=== PATIENT | female | born 1950 | race Caucasian/White ===

== ENCOUNTER → 2016-12-27 | Day surgery (SDC) | payer OTHER, BC ==
[2016-12-11 14:53] LABS: BASO % 0.7 %; BASO ABS # 0.03 K/uL (0-0.2); COMPLETE YES; EOS % 1.5 %; HEMATOCRIT 38.2 % (37-47); IG% 0.2 %; LYMPH % 18.4 %; LYMPH ABS # 0.85 K/uL (1.2-3.4); MEAN CELL VOLUME 90.7 fL (80-100); MEAN CORPUSCULAR HEMOGLOBIN 31.8 pg (25-34); MEAN CORPUSCULAR HGB CONC 35.1 g/dl (32-36); MONO % 4.8 %; NEUT % 74.4 %; PLATELET COUNT 236 K/uL (130-400); RED BLOOD COUNT 4.21 M/uL (4.2-5.4); WHITE BLOOD COUNT 4.61 K/uL (4.8-10.8)
[2016-12-11 15:18] LABS: BLOOD UREA NITROGEN 18 mg/dl (7-18); BUN/CREATININE RATIO 20.9 (10-20); CALCIUM 9.2 mg/dl (8.5-10.1); CARBON DIOXIDE 28 mmol/L (21-32); CHLORIDE 105 mmol/L (98-107); CREATININE 0.86 mg/dl (0.60-1.20); GLUCOSE 100 mg/dl (70-99); POTASSIUM 4.1 mmol/L (3.5-5.1); SODIUM 142 mmol/L (136-145)
[2016-12-16 09:52] VITALS: Ht 177.2 cm; Wt 79.5 kg
[~2016-12-27] VITALS: Ht 177.2 cm; Wt 79.5 kg
[~2016-12-27] MED LIST: ATROPINE SULFATE 0.1 MG/ML 5ML SYR IV PRN; CEFAZOLIN 2000 MG/60 ML D5W IV SCH; EpHEDrine SULFATE INJ 50 MG/ML AMP IV PRN; FENTANYL CITRATE INJ 50 MCG/1 ML 2 ML VIAL ONE; FLUT1AER5 INH; HYDR-5688 PO; HYDROCODONE/ACETAMOPHEN 5/325MG TAB PO PRN; LACTATED RINGER'S 1000ML 1,000 ML IV SCH; LIDOCAINE HCL 1% 20 ML VIAL ONE; LIDOCAINE HCL 2% 2 ML VIAL (20MG/ML) ONE; MIDAZOLAM HCL 1 MG/ML 2ML VIAL ONE; ONDANSETRON INJ 2 MG/ML 2 ML VIAL ONE; PROPOFOL IV EMULSION 10 MG/ML 20 ML VIAL IV ONE; SODIUM CHLORIDE 0.9% 1000ML 1,000 ML IV SCH; VNTHFA/IN INH
--- NOTE | 2016-12-27 08:02 | Discharge Instructions-SurgCtr ---
Discharge Instructions Visit Reason for Visit: Right Upper Inner Thigh Soft Tissue Mass Discharge Discharge Diagnosis / Problem: Rt thigh mass Discharge Goals Goal(s): Decrease discomfort, Improve function, Improve disease control Activity Recommendations Activity Limitations: as noted below Lifting Limitations: gradually increase as tolerated Exercise/Sports Limitations: until after follow-up appointment May Resume Sexual Activity: when tolerated Shower/Bathe: keep incision dry (may shower over incision on Sun 12/29) Driving or Machine Use: resume 1 day after discharge SPECIAL CARE INSTRUCTIONS: * Cover incisions and change daily for comfort/drainage. * Leave steri strips in place * May use ibuprofen for pain as tolerated. * Expect some swelling and bruising. Call your doctor if: * Temperature above 101 degrees * Pain not relieved by pain medicine ordered * There is increased drainage or redness from any incision * You have any unanswered questions or concerns [phone]. FOLLOW UP VISIT: If not already scheduled, please call the office for a follow-up visit. for 2 weeks- check up OFFICE PHONE NUMBER: Dr. Mcintyre Office Anesthesia . Post Anesthesia Instructions: If you have had General Anesthesia or IV Sedation: * Do not drive today. * Resume driving when surgeon permits. * Do not make important decisions or sign legal documents today. * Call surgeon for: 1. Temperature elevations greater than 101 degrees F. 2. Uncontrollable pain. 3. Excessive bleeding. 4. Persistent nausea and vomiting. 5. Medication intolerance (nausea, vomiting or rash). * For nausea and vomiting use only clear liquids such as: tea, soda, bouillon until nausea subsides, then gradually increase diet as tolerated. * If you have any concerns or questions, call your surgeon's office. If physician is unavailable and it is an emergency, call 911 or go to the nearest emergency room. . Diet Recommendations Home Diet: resume previous diet Pending Studies Studies pending at discharge: no Medical Emergencies . Who to Call and When: Medical Emergencies: If at any time you feel your situation is an emergency, please call 911 immediately. . Non-Emergent Contact Non-Emergency issues call your: Surgeon . . "Provider Documentation" section prepared by Roosevelt Mcintyre.
--- NOTE | 2016-12-27 10:05 | History & Physical Bridge - SC ---
H&P Re-Evaluation Bridge Note: I have examined the patient, reviewed the History & Physical and in the interval since the performance of the History & Physical I have noted the following changes of clinical significance: No changes noted
--- NOTE | 2016-12-27 11:32 | [facility] Operative Report ---
Operative Report Operative Date Dec 27, 2016. Pre-Operative Diagnosis Right Inner Upper Thigh Soft Tissue Mass Post-Operative Diagnosis same Procedure(s) Performed excision RT thigh LN Surgeon Dr. Mcintyre Interactive Web Developer Surgeon(s) None Estimated Blood Loss [address] at level of fascia Specimens A. Right Upper Inner Thigh Soft Tissue Possible Lymph Node Anesthesia local/ sedation Complication(s) None Disposition Recovery Room / PACU I attest to the content of the Intraoperative Record and any orders documented therein. Any exceptions are noted below.
[2016-12-27 11:34] VITALS: TEMP 36.4
[2016-12-27 12:04] VITALS: BP 131/84; PULSE 72; O2SAT 97
--- NOTE | 2016-12-27 12:16 | Anesthesia Progress Nt - [facility] ---
Anesthesia Post Op Note Date & Time Dec 27, 2016 at 12:16 Vital Signs Pain Intensity: 0 Vital Signs Past 12 Hours Date Time Temp Pulse Resp B/P Pulse Ox O2 Delivery O2 Flow Rate FiO2 12/27/16 12:04 72 13 131/84 97 Room Air 12/27/16 11:34 36.4 75 14 123/77 95 Room Air 12/27/16 09:20 36.4 86 16 154/98 98 Room Air Notes Mental Status: alert / awake / arousable, participated in evaluation Pt Amnestic to Procedure: Yes Nausea / Vomiting: adequately controlled Pain: adequately controlled Airway Patency, RR, SpO2: stable & adequate BP & HR: stable & adequate Hydration State: stable & adequate Anesthetic Complications: no major complications apparent
--- NOTE | 2016-12-27 12:55 | OPERATIVE REPORT ---
DATE OF OPERATION: 12/27/2016 PREOPERATIVE DIAGNOSIS: Right thigh mass. POSTOPERATIVE DIAGNOSIS: Same. NAME OF OPERATION: Excision of 2 cm lymph node from the right thigh. STAFF SURGEON: Dr. Mcintyre. ANESTHESIA: 1% plain lidocaine with sedation. PROCEDURE: The patient was brought in the operating room and placed on the operating table in supine position. Her right anterior thigh was prepped and draped in usual fashion. 1% plain lidocaine was used to anesthetize the skin and subcutaneous tissue and then incision made carrying dissection down to the level of the fascia, identifying a firm nodule which appeared to be a lymph node. It was dissected from surrounding tissue. It was relatively well circumscribed. It was sent fresh. At this point, the deep tissue was reapproximated using 2-0 plain catgut suture then the skin reapproximated using subcuticular 5-0 Monocryl and Steri-Strips. The patient was transferred to recovery room in stable condition. I attest to the content of the Intraoperative Record and any orders documented therein. Any exceptio ns are noted below.
== END | disposition home or self-care (01) ==
LOC: X.SURG 09:03
PROVIDERS: ATTEND Surgery
DX: D36.13 Benign neoplasm of peripheral nerves and autonomic nervous system of lower limb, including hip (principal); D21.21 Benign neoplasm of connective and other soft tissue of right lower limb, including hip; R25.1 Tremor, unspecified; R53.83 Other fatigue

== ENCOUNTER → 2017-03-10 | Outpatient (CLI) | payer OTHER, BC ==
[~2017-03-10] MED LIST changes: +ASPI81TA28 PO; -ATROPINE SULFATE 0.1 MG/ML 5ML SYR IV PRN; -CEFAZOLIN 2000 MG/60 ML D5W IV SCH; -EpHEDrine SULFATE INJ 50 MG/ML AMP IV PRN; -FENTANYL CITRATE INJ 50 MCG/1 ML 2 ML VIAL ONE; +GLUC10007 PO; +GLUC1CAP35 PO; -HYDROCODONE/ACETAMOPHEN 5/325MG TAB PO PRN; -LACTATED RINGER'S 1000ML 1,000 ML IV SCH; -LIDOCAINE HCL 1% 20 ML VIAL ONE; -LIDOCAINE HCL 2% 2 ML VIAL (20MG/ML) ONE; -MIDAZOLAM HCL 1 MG/ML 2ML VIAL ONE; +MULT-513 PO; -ONDANSETRON INJ 2 MG/ML 2 ML VIAL ONE; +OXYC1TAB3 PO; -PROPOFOL IV EMULSION 10 MG/ML 20 ML VIAL IV ONE; -SODIUM CHLORIDE 0.9% 1000ML 1,000 ML IV SCH
== END | disposition home or self-care (01) ==
LOC: C.MAMM 09:50
PROVIDERS: ATTEND Family Medicine
DX: Z13.820 Encounter for screening for osteoporosis (principal); M85.851 Other specified disorders of bone density and structure, right thigh; M85.852 Other specified disorders of bone density and structure, left thigh

== ENCOUNTER → 2017-03-12 | Outpatient (CLI) | payer OTHER, BC ==
[~2017-03-12] MED LIST changes: +GADAVIST IV PRN
--- NOTE | 2017-03-12 12:45 | DIAGNOSTIC IMAGING REPORT ---
MRI OF THE BRAIN COMBO CLINICAL HISTORY: Vertigo. Gaze palsy. COMPARISON STUDY: MRI of the brain dated 06/19/2011. TECHNIQUE: MRI of the brain was performed utilizing various T1 and T2-weighted sequences in the axial, sagittal, and coronal planes. Contrast-enhanced sequences were acquired following the administration of 8.1 cc of Gadavist. FINDINGS: Brain parenchyma: There are age-related involutional changes noting mild to moderate patchy foci of T2 signal in amount within the subcortical and periventricular white matter. There is a 9 mm focus of restricted diffusion identified in the midbrain. This is best seen on axial diffusion image #10, and this was corroborated by a drop in signal on the ADC maps. No additional foci of restricted diffusion are identified. There is no hemorrhage or mass effect. No enhancing mass lesion is identified on the postcontrast images. Whelan-white matter differentiation is preserved. No extra-axial fluid collection is seen. The cerebellar tonsils are normal in configuration. Ventricles, sulci, and cisterns: Prominent secondary to involutional change. Pituitary and sella: Partially encased sella is incidentally noted. Intracranial vasculature: Normal flow voids are maintained at the skull base. Orbits: The bony orbits are grossly intact. Orbital contents are normal in appearance noting bilateral ocular lens implants. Sinuses and mastoids: There is trace mucosal thickening within the maxillary antra. The remaining paranasal sinuses and mastoid air cells are clear. Calvarium: Unremarkable. Cervical cord: Partially visualized cervical spinal cord is normal in morphology and signal intensity. IMPRESSION: 1. There is a 9 mm focus of restricted diffusion identified in the midbrain, likely representing a subacute lacunar infarct. 2. No additional foci of restricted diffusion are identified. There is no hemorrhage or enhancing mass. 3. Patchy foci of T2 signal abnormality within the subcortical and periventricular white matter likely represent microangiopathic change. This has modestly progressed from the 2011 examination. Electronically signed by: Von Schaefer M.D. 03/12/2017 12:43 PM Dictated Date/Time: 03/12/2017 12:35 PM
--- NOTE | 2017-03-12 13:12 | DIAGNOSTIC IMAGING REPORT ---
MRI OF THE ORBITS WITH AND WITHOUT CONTRAST CLINICAL HISTORY: VERTICAL GAZE PALSY COMPARISON STUDY: MRI of the brain June 24, 2011. TECHNIQUE: Utilizing 1.5 Graciela magnet, multiplanar, multiecho imaging of the orbits was performed pre and postcontrast administration with thin cut imaging. Injection of 8.1 cc of Gadavist IV was uneventful. FINDINGS: The MRI of the brain will be reported separately. The globes are intact. There is no orbital mass. Extraocular muscles are normal. No areas of signal abnormality are identified within the optic nerves. The adjacent soft tissues are normal. Numerous white matter T2 hyperintense foci are better depicted on the MRI the brain but likely reflect small vessel disease or sequela of likely headaches. IMPRESSION: Normal MRI of the orbits. Electronically signed by: Davy Abad M.D. 03/12/2017 1:10 PM Dictated Date/Time: 03/12/2017 1:01 PM
== END | disposition home or self-care (01) ==
LOC: C.MRIBC 10:56
PROVIDERS: ATTEND Ophthalmology
DX: H51.0 Palsy (spasm) of conjugate gaze (principal); R90.89 Other abnormal findings on diagnostic imaging of central nervous system

== ENCOUNTER → 2017-07-08 | Outpatient (CLI) | payer OTHER, BC ==
[~2017-07-08] MED LIST changes: -ASPI81TA28 PO; -GADAVIST IV PRN; -GLUC10007 PO; -GLUC1CAP35 PO; -HYDR-5688 PO; -MULT-513 PO; -OXYC1TAB3 PO
== END | disposition home or self-care (01) ==
LOC: C.RDSM 12:05
PROVIDERS: ATTEND Family Medicine
DX: M25.561 Pain in right knee (principal); M25.562 Pain in left knee

== ENCOUNTER → 2017-08-06 | Outpatient (CLI) | payer OTHER, BC ==
--- NOTE | 2017-08-06 13:49 | MAMMOGRAPHY REPORT ---
BILATERAL DIGITAL SCREENING MAMMOGRAM WITH CAD: 08/06/2017 CLINICAL HISTORY: Routine screening. Patient has no complaints. TECHNIQUE: Current study was also evaluated with a Computer Aided Detection (CAD) system. Bilateral CC and MLO views were obtained. COMPARISON: Comparison is made to exams dated: 07/31/2016 mammogram, 07/27/2015 mammogram, 07/26/2014 m ammogram, 07/02/2012 mammogram, 07/05/2013 mammogram, and 07/03/2011 mammogram - [facility] er. BREAST COMPOSITION: There are scattered areas of fibroglandular density in both breasts. FINDINGS: No suspicious masses, calcifications, or areas of architectural distortion are noted in ei ther breast. There has been no significant interval change compared to prior exams. IMPRESSION: ACR BI-RADS CATEGORY 1: NEGATIVE There is no mammographic evidence of malignancy. A 1 year screening mammogram is recommended. The pa tient will receive written notification of the results. Approximately 10% of breast cancers are not detected with mammography. A negative mammographic report should not delay biopsy if a clinically suggestive mass is present. Jessica Worrell M.D. /:08/06/2017 10:35:40 Machine Washer: Kerri PACHECO,Mariana, M, [facility] letter sent: Normal 1/2 BI-RADS Code: ACR BI-RADS Category 1: Negative
== END | disposition home or self-care (01) ==
LOC: C.MAMM 10:16
PROVIDERS: ATTEND Obstetrics & Gynecology
DX: Z12.31 Encounter for screening mammogram for malignant neoplasm of breast (principal)

== ENCOUNTER → 2017-09-29 | Outpatient (CLI) | payer OTHER, BC ==
[~2017-09-29] MED LIST changes: +ASPI81TA28 PO; +GLUC10007 PO; +GLUC1CAP35 PO; +MULT-513 PO; +OXYC1TAB3 PO
--- NOTE | 2017-09-30 13:11 | HISTORY & PHYSICAL EXAMINATION ---
DATE OF ADMISSION: 09/29/2017 ATTENDING PHYSICIAN: Oscar Bradley MD. CHIEF COMPLAINT: Right shoulder injury. HISTORY OF PRESENT ILLNESS: This 67-year-old female presents to the clinic today for evaluation by Dr. Bradley. The patient fell on Friday night onto her right shoulder. She developed severe pain immediately and went to the Emergency Department, had x-rays performed that showed a mildly angulated fracture of the right proximal humeral neck. She was placed in a sling and advised to come to our clinic for evaluation. Dr. Bradley recommended the patient undergo surgical intervention to correct the fracture. At this time, the patient denies any numbness or tingling in right upper extremity. Denies chest pain, shortness of breath, fever, chills, sweats, nausea, vomiting or diarrhea. She does have swelling and bruising over the anterior surface of the shoulder and biceps. PAST SURGICAL HISTORY: Tubal ligation, dental implants and cataract removal. PAST MEDICAL HISTORY: Alopecia areata, asthma, mitral valve prolapse, seborrheic keratosis and lichen planus. FAMILY HISTORY: Maternal asthma, hypertension, uterine cancer and stroke. Father noncontributory. ALLERGIES: THE PATIENT HAS MEDICATION ALLERGIES TO ERYTHROMYCIN, DOXYCYCLINE AND IVP DYE. SHE HAS ENVIRONMENTAL ALLERGIES TO CATS AND DUST. CURRENT MEDICATIONS TAKEN: Aspirin 81 mg oral delayed release tablet 1 tab daily, Flovent HFA 110 mcg/INH MDI 2 puffs inhaled twice daily, ProAir HFA 90 mcg/inhaled aerosol 2 puffs 4 times daily as needed for wheezing. SOCIAL HISTORY: The patient denies any history of smoking or illicit drug use. States she may possibly consumes 2 alcoholic beverages per week. PHYSICAL EXAMINATION: SKIN: The patient's skin is normal in appearance with no open skin lesions or discharge. Please see extremities for detailed examination of the skin at the right shoulder. EYES: Pupils are equal and reactive to light and accommodation. Extraocular movements are intact. EARS: Canals clear of cerumen. Tympanic membranes are intact bilaterally with no bulging or effusion. NOSE: Turbinates pink and boggy in appearance. No appreciable rhinorrhea. THROAT: Posterior oropharynx is clear without evidence of edema, erythema or exudate. CARDIOVASCULAR: The patient has a regular rate and rhythm, no murmurs or gallops appreciated. LUNGS: Auscultation of the lung hines reveals clear breath sounds throughout with no wheezing, rales or rhonchi. ABDOMEN: Mildly obese, nondistended, and nontender with normoactive bowel sounds throughout. EXTREMITIES: Right shoulder: The patient is unable to forward flex or abduct to 90 degrees due to pain referred to the shoulder joint. She is able to reach terminal flexion and extension of her elbow. She has full range of motion of the right wrist; however, her manager of radiology strength on the right hand is slightly diminished greater than the left. Otherwise, she has appropriate dexterity of her fingers. She is able to do resisted traction of compression of the digits. She is able to do resisted traction and pincer grasps of the thumb and index finger. A specific shoulder exam was not able to be obtained due to the patient's fracture and pain. The patient does have moderate edema and ecchymosis over the anterior surface of the shoulder. She has point tenderness to palpation over the proximal humerus at the side of the fracture. Otherwise, the patient is neurovascularly intact in the right upper extremity. Her peripheral pulses are palpable. Capillary refill is brisk. All other extremities normal appearance, appropriate range of motion and strength. NEUROLOGIC: Cranial nerves II-XII are intact. No motor or sensory deficit. PSYCHOLOGICAL AND GENERAL: The patient is alert and oriented x3 with proper grooming and hygiene. DIAGNOSIS: Right proximal humerus fracture. PROCEDURE: Open reduction and internal fixation of the right proximal humeral fracture. PLAN: The patient is scheduled to undergo this procedure with Dr. Oscar Bradley at the [facility] on , 10/02/2017. Risks and complications of surgery such as infection, bleeding, pain, scarring, nerve and blood vessel damage, weakness, wound problems, stiffness, incomplete relief of symptoms, heart attack, stroke, , hardware failure, malunion, nonunion and arthritis were explained to the patient by Dr. Bradley. The patient understands and agrees and written consent to perform the procedure was obtained. We will also obtain a preoperative CBC with differential with complete metabolic panel and EKG. However, at this time, medical clearance is not indicated. The patient was provided prescriptions for oxycodone 5 mg for postoperative pain control, Celebrex 200 mg to take daily for relief of pain and inflammation. She was advised to stop her aspirin at least today. She will resume aspirin the day after surgery. Until her surgery, she may use extra strength Tylenol for pain control and continue this afterwards. The patient will be scheduled for followup examination with myself in 2 weeks after the procedure. At that time, we will provide her with rehabilitation exercises that she will do in our PT clinic with Julia Prakash. The patient states she has seen Julia before and would like to see her again. The patient was given an order set up this physical therapy appointment. The patient and her verbalized understanding of all information provided at today's visit and thanked us for the care they have received and stated if they have questions or concerns that should arise prior to the surgery, they will contact the clinic. The patient was advised that she will be admitted for 23-hour observation after the procedure. RAMONA
== END | disposition home or self-care (01) ==
LOC: C.RDSM 13:51
PROVIDERS: ATTEND Family Medicine
DX: S42.91XA Fracture of right shoulder girdle, part unspecified, initial encounter for closed fracture (principal); X58.XXXA Exposure to other specified factors, initial encounter

== ENCOUNTER 2017-10-02 06:36 | Observation (INO) | payer OTHER, BC ==
[2017-09-30 13:48] VITALS: BMI 26.0
[2017-10-02] VITALS (8 sets, daily range): BP systolic 113–169; BP diastolic 69–89; PULSE 80–115; TEMP 36.4–36.9; O2SAT 93–99; Ht 175.3 cm; Wt 81.8 kg
[~2017-10-02] VITALS: Ht 175.3 cm; Wt 81.8 kg
[2017-10-02] MEDS: TRANEXAMIC ACID INJ 1,000 MG in SYRINGE 0 ML IV SCH ×2 (06:00→06:30)
[~2017-10-02 06:36] MED LIST changes: +CEFAZOLIN 2000MG IV PUSH 10 ML IV SCH; -GLUC10007 PO; +LACTATED RINGER'S 1000ML 1,000 ML IV SCH; +LACTATED RINGER'S 1000ML IV SCH; -OXYC1TAB3 PO
[2017-10-02] MEDS ORDERED: ROPIVACAINE 0.5% 5 MG/ML 30 ML VIAL ONE (06:40)
[2017-10-02] MEDS ORDERED: FENTANYL CITRATE INJ 50 MCG/1 ML 2 ML VIAL ONE (07:48)
[2017-10-02] MEDS ORDERED: MIDAZOLAM HCL 1 MG/ML 2ML VIAL ONE (07:48)
[2017-10-02] MEDS ORDERED: NURSING VERBAL MED ORDER STA (08:53)
[2017-10-02] MEDS ORDERED: FENTANYL CITRATE INJ 50 MCG/1 ML 2 ML VIAL IV PRN (09:00)
[2017-10-02] MEDS ORDERED: ATROPINE SULFATE 0.1 MG/ML 5ML SYR IV PRN (09:00)
[2017-10-02] MEDS ORDERED: HYDROmorphone INJ 0.5 MG/0.5 ML SYR IV PRN (09:00)
[2017-10-02] MEDS ORDERED: ONDANSETRON INJ 2 MG/ML 2 ML VIAL IV PRN ×2 (09:00→11:45)
[2017-10-02] MEDS ORDERED: EpHEDrine SULFATE INJ 50 MG/ML AMP IV PRN (09:00)
[2017-10-02] MEDS ORDERED: PHENYLEPHRINE 100MCG/ML 5ML SYR ONE (09:19)
[2017-10-02] MEDS ORDERED: BACITRACIN 50000 UNIT VIAL ONE (09:19)
[2017-10-02] MEDS ORDERED: PROPOFOL IV EMULSION 10 MG/ML 20 ML VIAL IV ONE (09:38)
[2017-10-02] MEDS ORDERED: LIDOCAINE HCL 2% 2 ML VIAL (20MG/ML) ONE (09:38)
[2017-10-02] MEDS ORDERED: ONDANSETRON INJ 2 MG/ML 2 ML VIAL ONE (09:39)
[2017-10-02] MEDS ORDERED: DEXAMETHASONE SOD INJ 4 MG/ML VIAL ONE (09:39)
[2017-10-02] MEDS ORDERED: ROCURONIUM BROMIDE 10 MG/ML 5 ML VIAL IV ONE (09:39)
[2017-10-02] MEDS ORDERED: GLYCOPYRROLATE INJ 0.2 MG/ML VIAL ONE (10:14)
[2017-10-02] MEDS ORDERED: NEOSTIGMINE METHYLSULFATE 5 MG/5 ML SYR ONE (10:14)
--- NOTE | 2017-10-02 11:30 | [facility] Post Operative Brief Note ---
Immediate Operative Summary Operative Date Oct 02, 2017. Pre-Operative Diagnosis Right proximal humerus fracture Post-Operative Diagnosis Right proximal humerus fracture Procedure(s) Performed Open reduction and internal fixation of the right proximal humeral fracture, biceps tenodesis Surgeon Dr. Bradley Library Circulation Clerk Surgeon(s) Samson Medina PA-C Estimated Blood Loss 100cc Findings Fracture reduced and stabilized with a synthes proximal humerus locking plate. Two #2 ethibond sutures placed through the plate and infraspinatus to hold a comminuted greater tuberosity fragment. Fluids (cc crystalloids) 1650cc Specimens none Drains None Anesthesia General with block Complication(s) None Disposition Recovery Room / PACU
--- NOTE | 2017-10-02 11:35 | [facility] Operative Report ---
Operative Report Operative Date Oct 02, 2017. Pre-Operative Diagnosis Right proximal humerus fracture Post-Operative Diagnosis Right proximal humerus fracture Procedure(s) Performed Open reduction and internal fixation of the right proximal humeral fracture, biceps tenodesis Surgeon Dr. Bradley Tufter Operator Surgeon(s) Samson Medina PA-C Estimated Blood Loss 100cc Findings none Fluids 1650cc Specimens none Drains None Anesthesia General with block Complication(s) None Disposition Recovery Room / PACU I attest to the content of the Intraoperative Record and any orders documented therein. Any exceptions are noted below.
[2017-10-02] MEDS ORDERED: METOCLOPRAMIDE HCL INJ 5 MG/ML 2 ML VIAL IV PRN (11:45)
[2017-10-02] MEDS ORDERED: NO NSAIDS SCH (11:45)
[2017-10-02] MEDS ORDERED: ALBUTEROL HFA 8 GM INHALER INH PRN (11:45)
[2017-10-02] MEDS ORDERED: MAGNESIUM HYDROXIDE SUSP 30 ML UDC PO PRN (11:45)
[2017-10-02] MEDS ORDERED: DiphenhydrAMINE HCL 50 MG/ML VIAL IV PRN (11:45)
[2017-10-02] MEDS ORDERED: OXYCODONE HCL IR 5 MG TAB (IMMEDIATE RELEASE) PO PRN (11:45)
[2017-10-02] MEDS ORDERED: MoRPHine SULFATE 2 MG/ML CARP IV PRN (11:45)
[2017-10-02] MEDS ORDERED: ALUMINUM/MAGNESIUM/SIMETH (MAALOX MAX) 30 ML UDC PO PRN (11:45)
--- NOTE | 2017-10-02 11:53 | Discharge Instructions ---
Discharge Instructions Date of Service Oct 02, 2017. Admission Reason for Admission: Right Proximal Humerus Fracture Discharge Discharge Diagnosis / Problem: Same as above Discharge Goals Goal(s): Decrease discomfort, Improve function, Increase independence Activity Recommendations Activity Limitations: as noted below Lifting Limitations: until after follow-up appointment Exercise/Sports Limitations: until after follow-up appointment May Resume Sexual Activity: after follow-up appointment Shower/Bathe: tomorrow, keep incision dry Driving or Machine Use: Until cleared by orthopedic surgeon Weightbearing Status: Right non-weightbearing (Upper extremity) . Instructions / Follow-Up Instructions / Follow-Up Post-operative Instructions Dear Patient and Family/Friends, Before you are discharged from the hospital, it is important to know what to expect when you get home after surgery. To that end, we have created this sheet of discharge instructions which covers many commonly asked questions. Make sure you go through this sheet in its entirety with your nurse before you are discharged. Please note that we will go over the specifics of your surgery and recovery when you return for your first post-operative visit. Sincerely, Dr. Bradley Pain Expect to be in a fair amount of pain after surgery. Remember, our goal is not to eliminate your pain, but to make it tolerable. It is a good idea to stay ahead of your pain by taking the medications you were prescribed once you get home. Typically, the pain starts improving 3-7 days after surgery. You should start weaning off the narcotic pain medication (oxycodone, hydrocodone, hydromorphone, morphine) as soon as your pain improves. Please call our office if your pain is not adequately controlled. Ice Ice your operative site at least 5 times a day for 15-30 minutes at a time. Make sure you have a thin cloth between the ice or cooling unit and your skin to prevent montez bite. This is especially important if you received a nerve block. Continue icing your operative site for the first 5-7 days after surgery , then as needed. Diet/Nausea/Vomiting Start by drinking clear liquids and eating crackers. If you can tolerate this, then you may resume your normal diet. If you feel nauseated or vomit, take Zofran/ondansetron (if prescribed). Please call our office if you have intractable nausea or vomiting, or, if after hours, you may go to the Emergency Room for help. Constipation Constipation is a common side effect of narcotic pain medication. If you have not had a bowel movement within 2 days after surgery, we recommend purchasing an over the counter laxative such as Milk of Magnesia, Dulcolax, or Miralax from a local pharmacy, and taking it as instructed. Call our clinic if any questions. Slings and Braces If you were placed in a sling or brace, it must be worn at all times, including sleep. You may remove your sling or brace for physical therapy, home exercises , and showering. The length of time you will be in your brace and range of motion restrictions depends on what surgery you had; these details will be reviewed at your first post-operative appointment. Nerve block The anesthesia team sometimes places a nerve block to help with post-operative pain control. This results in significant numbness and inability to move the extremity. The nerve block usually wears off in 8-12 hours, but sometimes can last up to 24 hours. Please call our office if you are still unable to move your extremity after 24 hours, unless you received a pain pump to take home. Nerve blocks typically wear off quickly, so start taking pain medication as soon as you start feeling soreness near your surgical site. Weight bearing and Range of Motion. Do not bear any weight through your operative extremity immediately after surgery. If you had upper extremity surgery, do not lift anything with that arm. If you are in a knee brace, keep it locked in place until your follow-up. We will discuss your weight bearing, range of motion, and lifting restrictions in detail at your first post-operative appointment. Continuous Passive Motion (CPM) Machine If you were prescribed a CPM machine, it will start after your first post- operative appointment, at which time we will give you instructions on the range of motion settings and duration of treatment Physical therapy You will be given a prescription for physical therapy or occupational therapy at your first post-operative appointment. Typically, patients start therapy within 1 week of surgery Wound care and showering We will inspect your wound at your first post-operative visit, and may do a dressing change at that time. Most patients will be in a water-proof dressing that is removed 14 days after surgery. It is normal to see some dried blood on the dressing. Do not remove your dressing, paper strips or sutures yourself unless you are given permission. Showering is allowed the day after surgery. Do not scrub or remove any dressings. The wound should not be submerged underwater (i.e. in a bathtub or pool) until 4 weeks after surgery FLOR stockings If you were given white stockings, these are to be worn at all times except to shower (on both legs) for the first 2 weeks after surgery. Driving You may not drive while taking narcotic pain medication or while in a cast, splint, sling or brace. You, the patient, need to make the final determination about when you are safe to drive, however, the earliest you may consider driving after surgery is below: Hand/Wrist/Elbow Surgery: 3 days Shoulder Surgery: 2 weeks Hip,/Knee/Ankle Surgery: 4 weeks Fracture repair: 6 weeks Return to Work Your return to work depends on what surgery was done and what type of work you do. Please bring any paperwork your employer needs completed to your first post -operative visit. Also, bring a description of your job duties, as this helps us to understand what risks you may face at work. Travel Avoid long distance travel (greater than 1 hour) in airplanes and cars for the first 6 weeks after surgery. If you must travel, you need to have a Doppler ultrasound done before you travel to rule out a blood clot in your legs. Follow-up You should have a follow-up appointment already scheduled 1-2 days after surgery. If not, please contact our office to make this appointment before you leave the hospital. When to call the office It is normal to have swelling and bruising in the limb that was operated on. This will improve with time. It is also normal to have fevers for the first 2 days after surgery. Reasons you should call your doctor include: Uncontrolled pain; Nausea, vomiting, or constipation that does not improve with medication; Fevers over 101.5, chills, sweats; Drainage or bleeding from the wound; Foul odor; Spreading areas of redness; Any other concerns Current Hospital Diet Patient's current hospital diet: Regular Diet Discharge Diet Recommended Diet: Regular Diet Procedures Procedures Performed: Open reduction and internal fixation of the right proximal humeral fracture, biceps tenodesis Pending Studies Studies pending at discharge: no Medical Emergencies . Who to Call and When: Medical Emergencies: If at any time you feel your situation is an emergency, please call 911 immediately. . Non-Emergent Contact Non-Emergency issues call your: Primary Care Provider Call Non-Emergent contact if: you have a fever, temperature is above 101.5, your pain is not controlled, wound has increased drainage, wound has increased redness, you have any medication questions . "Provider Documentation" section prepared by Samson Medina. . VTE Core Measure Inpt VTE Proph given/why not?: Other Anticoagulation (EC Aspirin 81 mg), T.E.D. Stockings, SCD's [place] Drug Monitoring Program Search Results: patient reviewed within database, no issues identified, see additional documentation
--- NOTE | 2017-10-02 12:09 | DIAGNOSTIC IMAGING REPORT ---
R HUMERUS MIN 2 VIEW ROUTINE HISTORY: 67 years-old Female RT PROX ORIF status post ORIF of the right humerus COMPARISON: Right shoulder radiographs 09/29/2017 TECHNIQUE: 2 spot fluoroscopic images the right humerus were obtained utilizing 51.5 seconds fluoroscopy time FINDINGS: Postsurgical changes compatible with ORIF of the previously noted comminuted proximal humerus fracture. Lateral plate and screw fixation hardware is present with improved alignment. There is persistent mild apex medial angulation of the humeral neck, however alignment overall has improved. IMPRESSION: Improved alignment status post ORIF of the proximal right humerus. The above report was generated using voice recognition software. It may contain grammatical, syntax or spelling errors. Electronically signed by: Roger Fields M.D. 10/02/2017 12:07 PM Dictated Date/Time: 10/02/2017 12:05 PM
--- NOTE | 2017-10-02 12:12 | OPERATIVE REPORT ---
DATE OF OPERATION: 10/02/2017 PREOPERATIVE DIAGNOSIS: Right 2-part proximal humerus fracture. POSTOPERATIVE DIAGNOSIS: Right 2-part proximal humerus fracture. PROCEDURES: 1. Open reduction internal fixation right proximal humerus fracture. 2. Biceps tenodesis, right shoulder. SURGEON: Dr. Oscar Bradley. [employer] WORKER: Rebeca Medina. ANESTHESIA: General with supraclavicular block. ESTIMATED BLOOD LOSS: 100 mL. IV FLUIDS: 656 mL of crystalloid. IMPLANTS: Synthes proximal humerus locking plate with multiple locking and nonlocking screws. SPECIMENS: None. COMPLICATIONS: None. INDICATIONS: Ms. Umanzor is a 67-year-old female who fell at home last weekend. She sustained a 2-part proximal humerus fracture with a crack extending into the greater tuberosity and displacement. She was not tolerating treatment in a sling and was having excruciating pain despite oral medication. I had a long discussion with her about the risks and benefits of surgery, alternatives to surgery including nonsurgical treatment in the sling. After reviewing all the risks and benefits of surgery, she elected to proceed. All questions were answered. Informed consent was signed. OPERATIVE FINDINGS: The long head of the biceps was partially incarcerated in the fracture. It was therefore tenodesed to the pectoralis major tendon with # 2 ethibond suture. The fracture was reduced and stabilized with a Synthes proximal humeral locking plate. Two #2 Ethibond sutures were placed through the plate into the infraspinatus tendon to further secure comminution of the greater tuberosity at the infraspinatus insertion. DESCRIPTION OF THE OPERATION: The patient was identified in the preoperative holding area where her surgical site was marked. She was given interscalene block by anesthesia and brought back to the main operating room where she was placed in the operating room table and general anesthesia was administered. She was moved into the beach chair position. All bony prominences were padded. Perioperative antibiotics were administered. She was prepped and draped in the normal sterile fashion. Prior to incision, a multidisciplinary timeout was called. All in the room were in agreement. We began by making a 10 cm long incision centered from the clavicle and extending distally overlying the deltopectoral interval. We dissected down through subcutaneous tissues, identifying the fat stripe and the underlying cephalic vein which was dissected and retracted medially. A Ceron retractor was placed under the deltoid. The fracture was identified. The long head of the biceps was partially incarcerated in the fracture site and was therefore tenotomized through the rotator interval in the glenohumeral joint and was tenodesed to the pectoralis major tendon with #2 Ethibond suture. A Bishop retractor was placed through the fracture site and was used to reduce the fracture back into a more anatomic position. Once we had the fracture reduced, it was secured with 3 K-wires. Fluoroscopy was used to check the alignment of the fracture, which we were happy with. Next, the plate was placed on the lateral aspect of the humerus just posterior to the bicipital groove. The plate was secured to the bone with a K-wire. We placed a 3.5 mm cortical screw through the oblong hole in the plate. The height of the plate was adjusted in order to maximize our fixation in the proximal fragment while minimizing the chance of subacromial impingement. Once this was optimized, we placed our proximal locking screws. The lengths of these were all checked with fluoroscopy. We then placed 2 more 3.5 mm cortical screws in the plate distally. Fluoroscopy was then used to confirm all of our proper screw lengths. We irrigated out the wound with copious amounts of normal saline. I then passed two #2 Ethibond sutures through holes in the plate and through the infraspinatus tendon with a modified Jr-Gerardo suturing technique and tied them down. This was due to the comminution of the greater tuberosity at the infraspinatus insertion. The wound was dry at this point, so I elected to not place a drain. The deltopectoral interval was closed with #2 Ethibond sutures in interrupted fashion. The deep dermis was closed with a running 2-0 Vicryl followed by 3-0 Monocryl and Steri-Strips for the skin. 4 x 4's and Tegaderms were placed as a dressing. She was placed into a sling with abduction pillow. She was awoke from anesthesia and transferred to the recovery room in stable condition. POSTOPERATIVE COURSE: The patient will be admitted overnight for pain control and IV antibiotics. She will get out of bed and ambulate with physical therapy. We will get x-rays in the recovery room. We will plan on discharging her home tomorrow. She will be on aspirin for DVT prophylaxis. I attest to the content of the Intraoperative Record and any orders documented therein. Any exceptions are noted below. MTDD
[2017-10-02] MEDS ORDERED: MoRPHine SULFATE 4 MG/ML 1 ML CARP\\VIAL IV PRN (12:15)
--- NOTE | 2017-10-02 12:28 | Anesthesiology Progress Note ---
Anesthesia Post Op Note Date & Time Oct 02, 2017 at 12:28 Vital Signs Pain Intensity: 0 Vital Signs Past 12 Hours Date Time Temp Pulse Resp B/P (MAP) Pulse Ox O2 Delivery O2 Flow Rate FiO2 10/02/17 12:20 71 18 140/75 94 Nasal Cannula 3 10/02/17 12:10 36.6 95 15 154/75 94 Nasal Cannula 3 10/02/17 12:00 84 20 144/82 95 Oxymask 10 10/02/17 11:50 77 20 148/113 95 Oxymask 10 10/02/17 11:40 94 20 153/99 94 Oxymask 10 10/02/17 11:34 36.0 92 20 157/86 91 Oxymask 10 10/02/17 07:00 36.4 86 18 155/74 98 Room Air Notes Mental Status: alert / awake / arousable, participated in evaluation Pt Amnestic to Procedure: Yes Nausea / Vomiting: adequately controlled Pain: adequately controlled Airway Patency, RR, SpO2: stable & adequate BP & HR: stable & adequate Hydration State: stable & adequate Anesthetic Complications: no major complications apparent
--- NOTE | 2017-10-02 12:37 | DIAGNOSTIC IMAGING REPORT ---
RIGHT HUMERUS 2 VIEWS CLINICAL HISTORY: Postoperative examination. FINDINGS: AP and lateral views of the right humerus are compared to study dated 09/27/2017. The skeletal structures are osteopenic. There has been buttress plate fixation of an impacted right humeral neck fracture. Numerous cortical lag screws transfix the buttress plate. There is persistent apex volar angulation at the fracture site. No new fracture is seen. There is no shoulder dislocation. Overlying soft tissue edema and subcutaneous gas are expected postoperative findings. IMPRESSION: Postoperative images from open reduction and internal fixation of a right humeral fracture as above. Electronically signed by: Von Schaefer M.D. 10/02/2017 12:36 PM Dictated Date/Time: 10/02/2017 12:34 PM
[2017-10-02] MEDS ORDERED: IV FLUIDS COMPLETED PRN (12:45)
[2017-10-02] MEDS: D5W AND 1/2NSS + 20MEQ KCL 1,000 ML IV SCH ×2 (14:00→23:17)
[2017-10-02] MEDS: ACETAMINOPHEN 500 MG TAB PO SCH ×2 (16:02→22:12)
[2017-10-02] MEDS ORDERED: CEFAZOLIN IV 2,000 MG in DEXTROSE 5% 50ML 50 ML IV SCH (18:00)
[2017-10-02] MEDS: CEFAZOLIN IV 2,000 MG in SYRINGE 0 ML IV SCH (18:05)
[2017-10-02] MEDS ORDERED: ERGOCALCIFEROL 50,000 INTER.UNIT CAP PO ONE (21:00)
[2017-10-02] MEDS ORDERED: SENNA 8.6 MG TAB PO SCH (21:00)
[2017-10-02] MEDS: FLUTICASONE HFA 110MCG INHALER INH SCH (21:00)
[2017-10-02] MEDS: DOCUSATE SODIUM 100 MG CAP PO SCH (22:09)
[2017-10-03] MEDS: CEFAZOLIN IV 2,000 MG in SYRINGE 0 ML IV SCH (02:13)
[2017-10-03 03:12] VITALS: BP 127/72; PULSE 77; TEMP 37.1; O2SAT 94
[2017-10-03] MEDS: ACETAMINOPHEN 500 MG TAB PO SCH (05:46)
[2017-10-03 06:06] LABS: MEAN CELL VOLUME 90.7 fL (80-100); MEAN CORPUSCULAR HEMOGLOBIN 30.6 pg (25-34); MEAN CORPUSCULAR HGB CONC 33.8 g/dl (32-36); MEAN PLATELET VOLUME 9.7 fL (7.4-10.4); PLATELET COUNT 268 K/uL (130-400); RED BLOOD COUNT 3.53 M/uL (4.2-5.4); WHITE BLOOD COUNT 8.26 K/uL (4.8-10.8)
[2017-10-03 06:26] LABS: CALCIUM 8.7 mg/dl (8.5-10.1); CREATININE 0.81 mg/dl (0.60-1.20); POTASSIUM 4.3 mmol/L (3.5-5.1)
[2017-10-03 07:50] VITALS: BP 130/72; PULSE 78; TEMP 37.3; O2SAT 93
[2017-10-03 08:23] VITALS: O2SAT 93
--- NOTE | 2017-10-03 08:31 | Orthopedic Progress Note ---
Orthopedic Progress Note Date of Service Oct 03, 2017. Subjective Post OP Day: 1 Reports: feeling well, pain controlled w PO medications, Denies: complaints, chest pain, SOB, nausea / vomiting, light headedness, calf pain, using RESIDENTIAL INSTALLER Objective N/V intact, capillary refill less than 2 sec., dressing C/D/I, incision C/D/I, A &O x3, CMS intact Minimally tender around surgical incision site. No drainage noted. Full ROM in fingers, hand and wrist. Equal strap making machine operator strength. Able to depict light sensation to touch in pads of all fingers of Right hand. Date Time Temp Pulse Resp B/P (MAP) Pulse Ox O2 Delivery O2 Flow Rate FiO2 10/03/17 07:50 37.3 78 16 130/72 (91) 93 Room Air 10/03/17 07:20 Room Air 10/03/17 03:12 37.1 77 16 127/72 (90) 94 Room Air 10/03/17 00:00 Room Air 10/02/17 22:53 36.7 86 16 113/70 (84) 96 Room Air 10/02/17 19:38 36.9 95 17 113/69 (84) 93 Room Air 10/02/17 16:35 Room Air 10/02/17 15:48 36.8 115 17 167/79 (108) 94 Room Air 10/02/17 14:50 89 18 169/80 (109) 99 10/02/17 14:00 98 18 155/89 (111) 94 10/02/17 13:15 97 18 164/84 (110) 98 10/02/17 12:45 Nasal Cannula 3.0 10/02/17 12:45 Nasal Cannula 3.0 10/02/17 12:45 36.6 80 16 143/76 (98) 95 Nasal Cannula 3.0 10/02/17 12:20 71 18 140/75 94 Nasal Cannula 3 10/02/17 12:10 36.6 95 15 154/75 94 Nasal Cannula 3 10/02/17 12:00 84 20 144/82 95 Oxymask 10 10/02/17 11:50 77 20 148/113 95 Oxymask 10 10/02/17 11:40 94 20 153/99 94 Oxymask 10 10/02/17 11:34 36.0 92 20 157/86 91 Oxymask 10 Laboratory Results 24 Hours: Test 11/3/17 05:23 Hematocrit 32.0 % Hemoglobin 10.8 g/dL Assessment & Plan Assessment: Day 1 s/p ORIF of Right humerus fracture with biceps tenodesis Plan: Dressing to be kept in place until 2 wk post op f/u EC Aspirin 81 mg tabs daily and TEDS for DVT prophylaxis May do pendulum exercises and Table crawls for forward flexion and abduction at home Wound like PT/OT before discharge later today. Cont PO meds for pain control Ice as instructed PT at [facility] outpatient as scheduled 2 wk post op f/u with Paula Medina at [facility] With any question calls Will discuss with Dr. Bradley. Discharge Planning Discharge Planning: home with oppt Pain Management: Celebrex, PO Tylenol, other (Oxycodone) DVT Prophylaxis: TEDs, ASA Therapy: Physical Therapy, Occupational Therapy
--- NOTE | 2017-10-03 08:36 | Discharge Summary ---
Orthopedic Discharge Summary Admission Date/Reason Oct 02, 2017 at 11:49 Right Proximal Humerus Fracture. Discharge Date/Disposition Oct 03, 2017 Home Diagnosis Principal Diagnosis: Comminuted Right proximal humerus fracture Procedure(s) Performed ORIF of Right humerus fracture with biceps tenodesis Medication Reconciliation Oxycodone 5 mg 1-2 tabs PO q 4-6 hrs pain Tylenol 500 mg 2 tabs q 6 hrs prn pain Celebrex 200 mg 1 tab po daily EC Aspirin 81 mg 1 tab daily Cont all previous home meds *Rx's above were provided at her preop exam at our office* Admission Physical Exam As per Admitting History & Physical. Hospital Course Hospital course was uneventful. Pt was doing very well this AM and is ready to go home. Is scheduled to have PT at our clinic on Friday with Julia Prakash. We will see her at that time. Given instruction on pendulum and table crawl exercises. Pt should be discharge around lunch time today. Discharge Instructions Please refer to the electronic Patient Visit Report (Discharge Instructions) for additional information.
[2017-10-03] MEDS: FLUTICASONE HFA 110MCG INHALER INH SCH (08:50)
--- NOTE | 2017-10-03 08:51 | Anesthesiology Progress Note ---
Anesthesia Post Op Note Date & Time Oct 03, 2017 at 08:51 Vital Signs Pain Intensity: 3.0 Vital Signs Past 12 Hours Date Time Temp Pulse Resp B/P (MAP) Pulse Ox O2 Delivery O2 Flow Rate FiO2 10/03/17 08:23 93 Room Air 10/03/17 07:50 37.3 78 16 130/72 (91) 93 Room Air 10/03/17 07:20 Room Air 10/03/17 03:12 37.1 77 16 127/72 (90) 94 Room Air 10/03/17 00:00 Room Air 10/02/17 22:53 36.7 86 16 113/70 (84) 96 Room Air Notes Mental Status: alert / awake / arousable, participated in evaluation Pt Amnestic to Procedure: Yes Nausea / Vomiting: adequately controlled Pain: adequately controlled Airway Patency, RR, SpO2: stable & adequate BP & HR: stable & adequate Hydration State: stable & adequate Anesthetic Complications: no major complications apparent
[2017-10-03] MEDS: DOCUSATE SODIUM 100 MG CAP PO SCH (08:52)
[2017-10-03] MEDS: D5W AND 1/2NSS + 20MEQ KCL 1,000 ML IV SCH (08:53)
[2017-10-03 08:54] VITALS: BP 130/72; PULSE 78; TEMP 37.3; O2SAT 93
[2017-10-03] MEDS ORDERED: MULTIVITAMIN TAB PO SCH (09:00)
[2017-10-03] MEDS ORDERED: ASPIRIN 81 MG ECTAB PO SCH (09:00)
[2017-10-03] MEDS ORDERED: PANTOprazole SOD 40 MG TAB PO SCH (09:00)
== END 2017-10-03 11:14 | disposition home or self-care (01) ==
LOC: C.ACU 06:36 → C.3E 11:49 → ENRESERV 12:30
PROVIDERS: ADMIT Orthopaedic Surgery; ATTEND Orthopaedic Surgery
DX: S42.201A Unspecified fracture of upper end of right humerus, initial encounter for closed fracture (principal); W19.XXXA Unspecified fall, initial encounter; Z98.51 Tubal ligation status; Z98.49 Cataract extraction status, unspecified eye; J45.909 Unspecified asthma, uncomplicated; I34.1 Nonrheumatic mitral (valve) prolapse; Z79.82 Long term (current) use of aspirin; Z82.5 Family history of asthma and other chronic lower respiratory diseases; Z82.49 Family history of ischemic heart disease and other diseases of the circulatory system; Z82.3 Family history of stroke; Z80.49 Family history of malignant neoplasm of other genital organs; Z91.041 Radiographic dye allergy status

== ENCOUNTER → 2017-11-12 | Outpatient (CLI) | payer OTHER, BC ==
[~2017-11-12] MED LIST changes: -CEFAZOLIN 2000MG IV PUSH 10 ML IV SCH; -LACTATED RINGER'S 1000ML 1,000 ML IV SCH; -LACTATED RINGER'S 1000ML IV SCH
== END | disposition home or self-care (01) ==
LOC: C.RDSM 09:15
PROVIDERS: ATTEND Orthopaedic Surgery
DX: Z96.7 Presence of other bone and tendon implants (principal)

== ENCOUNTER → 2018-01-06 | Outpatient (CLI) | payer OTHER, BC | END | disposition home or self-care (01) | LOC: C.RDSM 14:19 | PROVIDERS: ATTEND Orthopaedic Surgery | DX: Z96.7 Presence of other bone and tendon implants (principal) ==

== ENCOUNTER → 2018-02-10 | Outpatient (CLI) | payer OTHER, BC | END | disposition home or self-care (01) | LOC: C.RDSM 18:53 | PROVIDERS: ATTEND Family Medicine | DX: M25.551 Pain in right hip (principal) ==

== ENCOUNTER → 2018-03-09 | Outpatient (CLI) | payer OTHER, BC ==
[2018-03-09 10:41] LABS: BLOOD UREA NITROGEN 17 mg/dl (7-18); CREATININE 0.85 mg/dl (0.60-1.20)
== END | disposition home or self-care (01) ==
LOC: C.LAB1850 09:38
PROVIDERS: ATTEND Psychiatry & Neurology Neurology
DX: G46.3 Brain stem stroke syndrome (principal); I67.9 Cerebrovascular disease, unspecified

== ENCOUNTER → 2018-03-12 | Outpatient (CLI) | payer OTHER, BC ==
[~2018-03-12] MED LIST changes: +GADAVIST IV PRN
--- NOTE | 2018-03-12 14:45 | DIAGNOSTIC IMAGING REPORT ---
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 TECHNIQUE: Multisequence, multiplanar MR imaging of the brain was performed before and after the administration of intravenous contrast. IV contrast: 8 mL Gadavist. COMPARISON: 03/12/2017. FINDINGS: Ventricles and sulci normal in size. Subcortical white matter T2/FLAIR hyperintensity, nonspecific but likely indicative of chronic small vessel ischemic change. No mass effect or midline shift. No restricted diffusion to suggest acute ischemia. No hemorrhage. No extra-axial fluid collection. T2 skull base flow voids preserved. No abnormal parenchymal enhancement. Bone marrow signal intensity within the calvarium within normal limits. Bilateral [place] lenses are absent. Polypoid mucosal thickening in the maxillary sinuses, left greater than right. IMPRESSION: 1. No acute intracranial pathology. No abnormal enhancement. 2. Nonspecific subcortical white matter foci of signal abnormality. These may represent chronic small vessel ischemic change though the appearance is not specific for this entity. Electronically signed by: Oscar Aguirre M.D. 03/12/2018 2:43 PM Dictated Date/Time: 03/12/2018 2:33 PM
== END | disposition home or self-care (01) ==
LOC: C.MRI 13:28
PROVIDERS: ATTEND Psychiatry & Neurology Neurology
DX: G46.3 Brain stem stroke syndrome (principal); I67.9 Cerebrovascular disease, unspecified

== ENCOUNTER 2021-12-12 18:10 | Inpatient (IN) ==
--- NOTE | 2021-12-12 18:38 | Emergency Department Note ---
Impression & Plan Fall, Closed fracture of left hip ED Provider Note Provider: Fidel Leigh MD DATE OF SERVICE: 12/12/2021 CHIEF COMPLAINT: Fall, hip pain HISTORY OF PRESENT ILLNESS: Patient is a 71-year-old female history of after a fall at home. Patient states she was at home and slipped on some ice on a step to the ground landing on her left hip. Denies striking her head or loss of consciousness. Denies any chest pain, shortness of breath, palpitations, abdominal pain, or nausea. Complains only of isolated pain in the left hip region is unable to walk since the fall. Was able to crawl into the house and called 911 and presents here via ambulance. Has not had anything for pain yet tonight. States pain is really only there if she tries to move the left leg/hip. Denies back pain. Denies numbness or tingling to lower extremities. Denies any injury to the arms or right leg. Denies any pain in the left knee or lower ankle. Patient denies any dizziness or headache and again denies striking her head. REVIEW OF SYSTEMS: A total of 10 review of systems was obtained and negative except as stated above in the HPI. PAST MEDICAL HISTORY: As noted above MEDICATIONS: Reviewed home medications denies any anticoagulants or aspirin SOCIAL HISTORY: Lives at home with PHYSICAL EXAM: GENERAL: alert and oriented in no acute distress on stretcher Head: normocephalic and atraumatic EYES: No injection, discharge or icterus. PERRL NECK: Trachea midline. Supple. ENT: Mucous membranes pink and moist. LUNGS: Airway patent. No retractions. Breath sounds clear with good air entry bilaterally. HEART: Regular rate and rhythm. No chest wall tenderness ABDOMEN: Soft and non-tender, without guarding or rebound. Stable pelvis on exam. SKIN: Acyanotic, warm, dry, without rashes EXTREMITIES: Without swelling, tenderness or deformity except for some shortening and rotation of the left leg around the area of the left hip. Pain with any range of motion of the left hip region. Intact 2+ left DP pulse and intact sensation in the left lower leg and foot. NEUROLOGICAL: No focal deficits. No aphasia. No facial droop or slurred speech. Sensation to gross touch normal. EK bpm normal sinus rhythm. No PVC or PAC. No acute ST segment elevation or depression with a QTC of 424. CONTINUOUS CARDIAC MONITORING: was ordered and showed a heart rate of 70s-90s bpm in normal sinus rhythm GCS 15. Patient's laboratory studies and imaging reviewed. Differential includes Fracture, dislocation, contusion, intra-abdominal, pneumothorax, intrathoracic, intracranial, neurologic, compartment syndrome, rhabdomyolysis, as well as other pathologies. IMPRESSION/MEDICAL DECISION MAKING: Patient not on high risk anticoagulants antiplatelets. Denies striking her head. Denies any neurological symptoms at this time. Significant pain around left hip. X-ray obtained here. Question possible fracture versus dislocation. Benign abdomen otherwise. Denies significant chest pain or shortness of breath. Chest x-ray obtained per radiology without significant abnormality noted. Basic blood work obtained. Given some Tylenol initially for pain. As needed fentanyl was ordered for pain as well although the patient was hesitant to use this. Pelvis x-ray per radiology with evidence of hip fracture likely transcervical. No anemia on blood work with mild leukocytosis likely reactive from the trauma. Discussed with orthopedics Dr. Barrios and the medicine team will admit for further care with orthopedic intervention planned when able tomorrow. Patient again neurologically intact in the left lower extremity. Benign abdomen on exam. Patient and were updated at bedside. DIAGNOSIS: Fall, left hip fracture DISPOSITION: Hospitalist will evaluate Patient was agreeable with this plan. Past Med/Surg History Medical History (Updated 12/12/21 @ 20:39 by Yu Carson DO) Asthma Rate-related bundle branch block Reports LBBB with HR > 150 Family History (Updated 12/12/21 @ 20:40 by Yu Carson DO) Other Family history non-contributory Social History (Updated 12/12/21 @ 20:40 by Yu Carson DO) Smoking Status: Never smoker Hx Alcohol Use: Yes Alcohol type: beer, wine and hard liquor Hx Substance Use: No Preferred Language: Sinhala Communication Ability: Effective Supervisor [employer] Required: No Beliefs That Will Affect Care: None Current Living Situation: Spouse Feels Safe at Home: Yes Assistive Devices: Glasses Allergies Allergies Allergy/AdvReac Type Severity Reaction Status Date / Time Iodinated Contrast Media Allergy Severe HIVES AND Verified 12/12/21 18:48 ANAPHYLAXIS cat dander Allergy Intermediate HIVES AND Verified 12/12/21 18:48 ITCHING doxycycline AdvReac Intermediate GI FLU Verified 12/12/21 18:48 LIKE SYMPTOMS erythromycin base AdvReac Mild UP SET Verified 12/12/21 18:48 STOMACH Home Meds Home Medications Medication Instructions Recorded Confirmed albuterol sulfate 90 mcg/actuation 2 puff INHALATION QID PRN 12/12/21 12/12/21 aerosol inhaler (ProAir HFA) fluticasone propionate 110 1 puff INHALATION BID 12/12/21 12/12/21 mcg/actuation HFA aerosol inhaler (Flovent HFA) multivitamin (Multiple Vitamins) 1 tab PO DAILY 12/12/21 12/12/21 Results & Data (ED) Vital Signs Vital Signs - 24 hr 12/12/21 18:14 Temperature 36.9 C Temperature Source Axillary Pulse Rate 80 Pulse Rhythm Regular Pulse Strength Normal Respiratory Rate 20 Respiratory Effort / Characteristics Non-Labored Respiratory Depth Normal Respiratory Pattern Regular Blood Pressure 172/100 H Blood Pressure Mean 124 Blood Pressure Position Lying Pulse Oximetry 100 Oxygen Delivery Method Room Air Sepsis Recent Fever Within 48 Hours No Sepsis New/Unexplained Change in Mental Status No Sepsis Action Taken by Nursing No Action Required Laboratory Data Result diagrams: 12/12/21 18:30 12/12/21 18:30 Lab Results 12/12/21 12/12/21 12/12/21 Range/Units 18:30 18:30 18:30 WBC 12.03 H (4.8-10.8) K/uL RBC 4.48 (4.2-5.4) M/uL Hgb 14.2 (12.0-16.0) g/dL Hct 41.2 (37-47) % MCV 92.0 (80-100) fL MCH 31.7 (25-34) pg MCHC 34.5 (32-36) g/dL RDW Std Deviation 42.8 (36.4-46.3) fL RDW Coeff of José Miguel 12.8 (11.5-14.5) % Plt Count 288 (130-400) K/uL MPV 10.1 (7.4-10.4) fL Immature Gran % (Auto) 0.5 % Neut % (Auto) 86.6 % Lymph % (Auto) 8.1 % [place] % (Auto) 3.9 % Eos % (Auto) 0.6 % Baso % (Auto) 0.3 % Neut # (Auto) 10.41 H (1.4-6.5) K/uL Lymph # (Auto) 0.98 L (1.2-3.4) K/uL [place] # (Auto) 0.47 (0.11-0.59) K/uL Eos # (Auto) 0.07 (0-0.5) K/uL Baso # (Auto) 0.04 (0-0.2) K/uL Immature Gran # (Auto) 0.06 H (0.00-0.02) K/uL PT 10.0 (9.0-12.0) Seconds INR 1.0 (0.9-1.1) APTT 23.4 (21.0-31.0) Seconds PTT Ratio 0.9 Sodium 138 (136-145) mmol/L Potassium 3.7 (3.5-5.1) mmol/L Chloride 102 (98-107) mmol/L Carbon Dioxide 26 (21-32) mmol/L Anion Gap 10 (3-11) BUN 21 (6-23) mg/dl Creatinine 0.89 (0.6-1.2) mg/dl Est Cr Clr Drug Dosing 60.6 ml/min Est GFR ( Amer) 75.6 ml/min Est GFR (Non-Af Amer) 65.2 ml/min BUN/Creatinine Ratio 23.6 H (10-20) Glucose 135 H (70-99) mg/dl Calcium 9.3 (8.5-10.1) mg/dl Total Bilirubin 0.5 (0.2-1.0) mg/dl AST 17 (13-39) U/L ALT 13 (7-52) U/L Alkaline Phosphatase 97 (34-104) U/L Total Protein 7.2 (6.0-8.3) gm/dl Albumin 4.4 (3.4-5.0) gm/dl Globulin 2.8 (2.5-4.0) gm/dl Albumin/Globulin Ratio 1.6 (0.9-2) SARS-CoV-2, RNA, NAAT (NEGATIVE) 12/12/21 Range/Units 18:41 WBC (4.8-10.8) K/uL RBC (4.2-5.4) M/uL Hgb (12.0-16.0) g/dL Hct (37-47) % MCV (80-100) fL MCH (25-34) pg MCHC (32-36) g/dL RDW Std Deviation (36.4-46.3) fL RDW Coeff of José Miguel (11.5-14.5) % Plt Count (130-400) K/uL MPV (7.4-10.4) fL Immature Gran % (Auto) % Neut % (Auto) % Lymph % (Auto) % [place] % (Auto) % Eos % (Auto) % Baso % (Auto) % Neut # (Auto) (1.4-6.5) K/uL Lymph # (Auto) (1.2-3.4) K/uL [place] # (Auto) (0.11-0.59) K/uL Eos # (Auto) (0-0.5) K/uL Baso # (Auto) (0-0.2) K/uL Immature Gran # (Auto) (0.00-0.02) K/uL PT (9.0-12.0) Seconds INR (0.9-1.1) APTT (21.0-31.0) Seconds PTT Ratio Sodium (136-145) mmol/L Potassium (3.5-5.1) mmol/L Chloride (98-107) mmol/L Carbon Dioxide (21-32) mmol/L Anion Gap (3-11) BUN (6-23) mg/dl Creatinine (0.6-1.2) mg/dl Est Cr Clr Drug Dosing ml/min Est GFR ( Amer) ml/min Est GFR (Non-Af Amer) ml/min BUN/Creatinine Ratio (10-20) Glucose (70-99) mg/dl Calcium (8.5-10.1) mg/dl Total Bilirubin (0.2-1.0) mg/dl AST (13-39) U/L ALT (7-52) U/L Alkaline Phosphatase (34-104) U/L Total Protein (6.0-8.3) gm/dl Albumin (3.4-5.0) gm/dl Globulin (2.5-4.0) gm/dl Albumin/Globulin Ratio (0.9-2) SARS-CoV-2, RNA, NAAT NEGATIVE (NEGATIVE) Administered Medications Acetaminophen (Acetaminophen 325 Mg Tab) 650 mg PO Q6H PRN PRN Reason: Pain & Pre PT Stop: 01/11/22 21:20 Last Admin: 12/12/21 21:49 Dose: 650 mg Documented by: [id number] Lactated Ringer's (Lr) 1,000 mls @ 125 mls/hr IV .Q8H ABI Stop: 12/13/21 13:20 Last Admin: 12/12/21 21:50 Dose: 125 mls/hr Documented by: [id number] Senna/Docusate Sodium (Docusate Sodium/Senna 50/8.6mg Tab) 2 tab PO HS ABI Stop: 01/11/22 21:20 Last Admin: 12/12/21 21:49 Dose: Not Given Documented by: [id number] Discontinued Medications Fentanyl Citrate (Fentanyl Citrate 100 Mcg/2 Ml Vial) 50 mcg IV Q30M PRN PRN Reason: Pain Stop: 12/26/21 19:21 Last Admin: 12/12/21 20:53 Dose: 50 mcg Documented by: [id number] Admin: 12/12/21 20:04 Dose: 50 mcg Documented by: [id number] Acetaminophen (Ofirmev) 1,000 mg in 100 mls @ 400 mls/hr IV NOW STA Stop: 12/12/21 19:02 Last Infusion: 12/12/21 19:35 Dose: 0 mls/hr Documented by: [id number] Admin: 12/12/21 19:13 Dose: 400 mls/hr Documented by: [id number] Imaging Data Radiologist's Impression: Hip/Pelvis X-Ray 12/12/21 18:35 XR hip LT 2V w pelvis HISTORY: 71 years-old Female fall, pain acute left hip pain status post fall COMPARISON: Left hip radiographs 02/10/2018 TECHNIQUE: AP view of the pelvis with crosstable lateral view of the left hip FINDINGS: Limited exam secondary to positioning. Moderate osteoarthritis of the hips. Mildly demineralized appearance of the bones. The pelvis is suboptimally evaluated secondary to patient rotation. There is an acute fracture of the proximal left femur which appears to be transcervical with impaction and mild apex lateral angulation. IMPRESSION: Acute mildly impacted and angulated fracture of the proximal left femur, likely transcervical. ACT 112: Negative or not required by law. The above report was generated using voice recognition software. It may contain grammatical, syntax or spelling errors. Electronically signed by: Dimitry Fields M.D. 12/12/2021 7:10 PM Chest X-Ray 12/12/21 18:36 XR chest 1V portable HISTORY: 71 years-old Female fall acute chest trauma status post fall COMPARISON: Chest radiograph 08/26/2018 TECHNIQUE: Supine AP view of the chest FINDINGS: The cardiomediastinal and hilar silhouettes are unchanged. There is mild chronic interstitial coarsening. No pneumothorax, pleural effusion, airspace consolidation or overt pulmonary edema. Degenerative changes of the shoulders and spine. ORIF changes of the proximal right humerus. IMPRESSION: No acute process. ACT 112: Negative or not required by law. The above report was generated using voice recognition software. It may contain grammatical, syntax or spelling errors. Electronically signed by: Dimitry Fields M.D. 12/12/2021 7:08 PM Discharge Plan Visit Data Chief Complaint: Fall ED Provider: Fidel Leigh Discharge Problem: Fall, Closed fracture of left hip Patient Disposition: Admitted As Inpatient Discharge Instructions Interventions: ED Discharge Assessment Last Done: 12/12/21 21:14 Discharge Problem: Fall Qualifiers: Encounter type: initial encounter Qualified Code(s): W19.XXXA - Unspecified fall, initial encounter Closed fracture of left hip Qualifiers: Encounter type: initial encounter Qualified Code(s): S72.002A - Fracture of unspecified part of neck of left femur, initial encounter for closed fracture
[2021-12-12 18:46] LABS: Basophils # (auto) 0.04 K/uL (0-0.2); Basophils % (auto) 0.3 %; Eosinophils # (auto) 0.07 K/uL (0-0.5); Eosinophils % (auto) 0.6 %; Hematocrit (blood only) 41.2 % (37-47); Hemoglobin 14.2 g/dL (12.0-16.0); Immature Granulocytes # (auto) 0.06 K/uL (0.00-0.02); Immature Granulocytes % (auto) 0.5 %; Lymphocytes # (auto) 0.98 K/uL (1.2-3.4); Lymphocytes % (auto) 8.1 %; Mean Corpuscular Hemoglobin 31.7 pg (25-34); Mean Corpuscular Hgb Conc 34.5 g/dL (32-36); Mean Platelet Volume 10.1 fL (7.4-10.4); Monocytes # (auto) 0.47 K/uL (0.11-0.59); Monocytes % (auto) 3.9 %; Neutrophils # (auto) 10.41 K/uL (1.4-6.5); Neutrophils % (auto) 86.6 %; Platelet Count 288 K/uL (130-400); RDW Coefficient of Variation 12.8 % (11.5-14.5); RDW Standard Deviation 42.8 fL (36.4-46.3); Red Blood Count 4.48 M/uL (4.2-5.4); White Blood Count 12.03 K/uL (4.8-10.8)
[2021-12-12] MEDS ORDERED: ACETAMINOPHEN 1,000 MG/100 ML VIAL IV STA (18:48)
[2021-12-12 19:01] LABS: Partial Thromboplastin Ratio 0.9; Partial Thromboplastin Time 23.4 Seconds (21.0-31.0)
--- NOTE | 2021-12-12 19:10 | XRay Report ---
XR chest 1V portable HISTORY: 71 years-old Female fall acute chest trauma status post fall COMPARISON: Chest radiograph 08/26/2018 TECHNIQUE: Supine AP view of the chest FINDINGS: The cardiomediastinal and hilar silhouettes are unchanged. There is mild chronic interstitial coarsen ing. No pneumothorax, pleural effusion, airspace consolidation or overt pulmonary edema. Degenerative changes of the shoulders and spine. ORIF changes of the proximal right humerus. IMPRESSION: No acute process. ACT 112: Negative or not required by law. The above report was generated using voice recognition software. It may contain grammatical, syntax o r spelling errors. Electronically signed by: Dimitry Fields M.D. 12/12/2021 7:08 PM
--- NOTE | 2021-12-12 19:11 | XRay Report ---
XR hip LT 2V w pelvis HISTORY: 71 years-old Female fall, pain acute left hip pain status post fall COMPARISON: Left hip radiographs 02/10/2018 TECHNIQUE: AP view of the pelvis with crosstable lateral view of the left hip FINDINGS: Limited exam secondary to positioning. Moderate osteoarthritis of the hips. Mildly demineralized appe arance of the bones. The pelvis is suboptimally evaluated secondary to patient rotation. There is an acute fracture of the proximal left femur which appears to be transcervical with impaction and mild a pex lateral angulation. IMPRESSION: Acute mildly impacted and angulated fracture of the proximal left femur, likely transcerv ical. ACT 112: Negative or not required by law. The above report was generated using voice recognition software. It may contain grammatical, syntax o r spelling errors. Electronically signed by: Dimitry Fields M.D. 12/12/2021 7:10 PM
[2021-12-12 19:25] LABS: Albumin Globulin Ratio 1.6 (0.9-2); Albumin Level 4.4 gm/dl (3.4-5.0); BUN Creatinine Ratio 23.6 (10-20); Bilirubin,Total 0.5 mg/dl (0.2-1.0); Calcium 9.3 mg/dl (8.5-10.1); Creatinine Clr Calc Pharmacy 60.6 ml/min; Est GFR (African American) 75.6 ml/min; Est GFR (Non-African American) 65.2 ml/min; Globulin 2.8 gm/dl (2.5-4.0); Potassium 3.7 mmol/L (3.5-5.1); Total Protein 7.2 gm/dl (6.0-8.3)
[2021-12-12] MEDS ORDERED: ONDANSETRON INJ 2 MG/ML 2 ML VIAL IV PRN ×2 (19:54→21:21)
[2021-12-12] MEDS: fentaNYL citrate 100 MCG/2 ML VIAL IV PRN ×2 (20:04→20:53)
--- NOTE | 2021-12-12 20:26 | History & Physical Report ---
Date of Service December 12, 2021 Assessment & Plan (1) Closed fracture of left hip: Plan: 71yo female presenting with closed transcervical fracture of left hip following a ground level fall on ice. Patient in significant discomfort. Neurovascularly intact -Admit to medical floor -Pain control with Tylenol, Oxycodone and Morphine PRN -Zofran as needed for nausea -Bowel regimen as needed - Dulcolax PRN -NPO after midnight for possible surgery in AM -Orthopedic Surgery consultation appreciated Patient is medically optimized and can proceed to surgery with no additional testing. Plan: F/E/N - LR at 125ml/hr x 2 liters, electrolytes WNL, Regular diet as tolerated with NPO after midnight Ppx - SCDs Code - Full per discussion with patient History of Present Illness Chief Complaint: left hip fracture Primary Care Provider: Raymond Mayes DO Neli Umanzor is a 71yo female with mild intermittent asthma presenting with acute fracture of left hip. Patient slipped on ice this afternoon and fell onto her left hip. She was unable to get up and bear weight. She dragged herself into her home and her called EMS. She denies head trauma or loss of consciousness. She was only down for a short amount of time and did not spend m uch time outside. No additional complaints at this time. ER Course: Fentanyl 50mcg, Tylenol 1gm Allergies Allergy/AdvReac Type Severity Reaction Status Date / Time Iodinated Contrast Media Allergy Severe HIVES AND Verified 12/12/21 18:48 ANAPHYLAXIS cat dander Allergy Intermediate HIVES AND Verified 12/12/21 18:48 ITCHING doxycycline AdvReac Intermediate GI FLU Verified 12/12/21 18:48 LIKE SYMPTOMS erythromycin base AdvReac Mild UP SET Verified 12/12/21 18:48 STOMACH Home Medications Medication Instructions Recorded Confirmed Type albuterol sulfate 90 mcg/actuation 2 puff INHALATION QID PRN 12/12/21 12/12/21 History aerosol inhaler (ProAir HFA) fluticasone propionate 110 1 puff INHALATION BID 12/12/21 12/12/21 History mcg/actuation HFA aerosol inhaler (Flovent HFA) multivitamin (Multiple Vitamins) 1 tab PO DAILY 12/12/21 12/12/21 History Past Med/Surg History Medical History (Updated 12/12/21 @ 20:39 by Yu Carson DO) Asthma Rate-related bundle branch block Reports LBBB with HR > 150 Family History (Updated 12/12/21 @ 20:40 by Yu Carson DO) Other Family history non-contributory Social History (Updated 12/12/21 @ 20:40 by Yu Carson DO) Smoking Status: Never smoker Hx Alcohol Use: Yes Feels Safe at Home: Yes Review of Systems Review of Systems: All systems reviewed & are unremarkable except as noted in HPI & below Physical Exam Physical Exam: General: patient resting in significant discomfort, AA&O x 4 Skin: warm, dry, intact, no rashes or lesions HEENT: NC/AT, PERRL, EOMI, anicteric sclera, conjunctiva without injection, external ear normal to inspection and nontender, nares patent, moist mucus membranes, dentition intact, no oropharyngeal lesions, neck supple, trachea midline, no LAD, no thyromegaly, no JVD Heart: +S1/S2, regular, no m/r/g Lungs: equal air entry bilaterally, no rales/rhonchi/wheezes Abd: +BS, soft, NT/ND, no masses/organomegaly/ascites Ext: warm, 2+ pulses in UE/LE bilaterally, no clubbing/cyanosis or edema Neuro: nonfocal, patient AA&O x 4, speech intact, no facial droop, moving all extremities on command with equal strength 5/5 Results & Data Results & Data ([place]) Vital Signs (Past 12 Hours) Vital Signs Temp Pulse Resp BP Pulse Ox 12/12/21 18:14 36.9 C 80 20 172/100 H 100 Laboratory Results Laboratory Results WBC 12.03 K/uL (4.8-10.8) H 12/12/21 18:30 RBC 4.48 M/uL (4.2-5.4) 12/12/21 18:30 Hgb 14.2 g/dL (12.0-16.0) 12/12/21 18:30 Hct 41.2 % (37-47) 12/12/21 18:30 MCV 92.0 fL (80-100) 12/12/21 18:30 MCH 31.7 pg (25-34) 12/12/21 18:30 MCHC 34.5 g/dL (32-36) 12/12/21 18:30 RDW Std Deviation 42.8 fL (36.4-46.3) 12/12/21 18: RDW Coeff of José Miguel 12.8 % (11.5-14.5) 12/12/21 18:30 Plt Count 288 K/uL (130-400) 12/12/21 18:30 MPV 10.1 fL (7.4-10.4) 12/12/21 18: Immature Gran % (Auto) 0.5 % 12/12/21 18:30 Neut % (Auto) 86.6 % 12/12/21 18:30 Lymph % (Auto) 8.1 % 12/12/21 18: [place] % (Auto) 3.9 % 12/12/21: Eos % (Auto) 0.6 % 12/12/21 18: Baso % (Auto) 0.3 % 12/12/21 18:30 Neut # (Auto) 10.41 K/uL (1.4-6.5) H 12/12/21 18:30 Lymph # (Auto) 0.98 K/uL (1.2-3.4) L 12/12/21 18:30 [place] # (Auto) 0.47 K/uL (0.11-0.59) 12/12/21 18:30 Eos # (Auto) 0.07 K/uL (0-0.5) 12/12/21 18:30 Baso # (Auto) 0.04 K/uL (0-0.2) 12/12/21 18: Immature Gran # (Auto) 0.06 K/uL (0.00-0.02) H 12/12/21 18:30 PT 10.0 Seconds (9.0-12.0) 12/12/21 18:30 INR 1.0 (0.9-1.1) 12/12/21 18:30 APTT 23.4 Seconds (21.0-31.0) 12/12/21 18:30 PTT Ratio 0.9 12/12/21 18:30 Sodium 138 mmol/L (136-145) 12/12/21 18: Potassium 3.7 mmol/L (3.5-5.1) 12/12/21 18:30 Chloride 102 mmol/L (98-107) 12/12/21 18:30 Carbon Dioxide 26 mmol/L (21-32) 12/12/21 18:30 Anion Gap 10 (3-11) 12/12/21 18:30 BUN 21 mg/dl (6-23) 12/12/21 18:30 Creatinine 0.89 mg/dl (0.6-1.2) 12/12/21 18: Est Cr Clr Drug Dosing 60.6 ml/min 12/12/21 18:30 Est GFR ( Amer) 75.6 ml/min 12/12/21 18:30 Est GFR (Non-Af Amer) 65.2 ml/min 12/12/21 18:30 BUN/Creatinine Ratio 23.6 (10-20) H 12/12/21 18: Glucose 135 mg/dl (70-99) H 12/12/21 18:30 Calcium 9.3 mg/dl (8.5-10.1) 12/12/21 18: Total Bilirubin 0.5 mg/dl (0.2-1.0) 12/12/21 18:30 AST 17 U/L (13-39) 12/12/21 18:30 ALT 13 U/L (7-52) 12/12/21 18:30 Alkaline Phosphatase 97 U/L (34-104) 12/12/21 18:30 Total Protein 7.2 gm/dl (6.0-8.3) 12/12/21 18:30 Albumin 4.4 gm/dl (3.4-5.0) 12/12/21 18: Globulin 2.8 gm/dl (2.5-4.0) 12/12/21 18:30 Albumin/Globulin Ratio 1.6 (0.9-2) 12/12/21 18:30 Urine Color Yellow 12/12/21 20:20 Urine Appearance Clear (Clear) 12/12/21: Urine pH 6.0 (4.5-7.5) 12/12/21 20:20 Ur Specific [place] 1.017 (1.000-1.030) 12/12/21 20:20 Urine Protein Negative (Negative) 12/12/21:20 Urine Glucose (UA) Negative (Negative) 12/12/21 20:20 Urine Ketones Trace (Negative) H 12/12/21 20:20 Urine Blood Trace (Negative) H 12/12/21 20:20 Urine Nitrite Negative (Negative) 12/12/21 20:20 Urine Bilirubin Negative (Negative) 12/12/21 20:20 Urine Urobilinogen Negative (Negative) 12/12/21 20:20 Ur Leukocyte Esterase Negative (Negative) 12/12/21 20:20 Urine WBC (Auto) 0 /hpf (0-5) 12/12/21 20:20 Urine RBC (Auto) 0-4 /hpf (0-4) 12/12/21 20:20 U Hyaline Cast (Auto) 1-5 /lpf (0-5) 12/12/21 20:20 U Epithel Cells (Auto) 0-5 /lpf (0-5) 12/12/21 20:20 Urine Bacteria (Auto) Negative (Negative) 12/12/21 20:20 SARS-CoV-2, RNA, NAAT NEGATIVE (NEGATIVE) 12/12/21 18:41 Impressions Hip/Pelvis X-Ray 12/12/21 18:35 XR hip LT 2V w pelvis HISTORY: 71 years-old Female fall, pain acute left hip pain status post fall COMPARISON: Left hip radiographs 02/10/2018 TECHNIQUE: AP view of the pelvis with crosstable lateral view of the left hip FINDINGS: Limited exam secondary to positioning. Moderate osteoarthritis of the hips. Mildly demineralized appearance of the bones. The pelvis is suboptimally evaluated secondary to patient rotation. There is an acute fracture of the proximal left femur which appears to be transcervical with impaction and mild apex lateral angulation. IMPRESSION: Acute mildly impacted and angulated fracture of the proximal left femur, likely transcervical. ACT 112: Negative or not required by law. The above report was generated using voice recognition software. It may contain grammatical, syntax or spelling errors. Electronically signed by: Dimitry Fields M.D. 12/12/2021 7:10 PM Chest X-Ray 12/12/21 18:36 XR chest 1V portable HISTORY: 71 years-old Female fall acute chest trauma status post fall COMPARISON: Chest radiograph 08/26/2018 TECHNIQUE: Supine AP view of the chest FINDINGS: The cardiomediastinal and hilar silhouettes are unchanged. There is mild chronic interstitial coarsening. No pneumothorax, pleural effusion, airspace consolidation or overt pulmonary edema. Degenerative changes of the shoulders and spine. ORIF changes of the proximal right humerus. IMPRESSION: No acute process. ACT 112: Negative or not required by law. The above report was generated using voice recognition software. It may contain grammatical, syntax or spelling errors. Electronically signed by: Dimitry Fields M.D. 12/12/2021 7:08 PM Code Status & VTE Plan VTE Prophylaxis Plan VTE Prophylaxis will be ordered: Yes PG Care Time/CCT Total # of Minutes Spent Total Time Spent with Patient: Total time spent is greater than 50% in coordination of care (as documented) at patient's floor/unit and/or counseling patient: Coding Level of Care Code 27864 Initial Inpt Care Lvl 2 Diagnoses Closed fracture of left hip S72.002A Encounter type: initial encounter (1) Closed fracture of left hip Encounter type: initial encounter Qualified Code(s): S72.002A - Fracture of unspecified part of neck of left femur, initial encounter for closed fracture
[2021-12-12 20:34] LABS: Appearance Urine Clear (Clear); Bacteria Urine Automated Negative (Negative); Bilirubin Urine Negative (Negative); Blood Urine Trace (Negative); Color Urine Yellow; Epithelial Cell Urine Auto 0-5 /lpf (0-5); Glucose Urine UA Negative (Negative); Ketones Urine Trace (Negative); Leukocyte Esterase Urine Negative (Negative); Nitrite Urine Negative (Negative); Protein Urine Negative (Negative); RBC Urine Automated 0-4 /hpf (0-4); Specific Gravity Urine 1.017 (1.000-1.030); Urobilinogen Urine Negative (Negative); WBC Urine Automated 0 /hpf (0-5)
[2021-12-12] MEDS ORDERED: MAGNESIUM HYDROXIDE SUSP 30 ML UDC PO PRN (21:21)
[2021-12-12] MEDS ORDERED: MoRPHine SULFATE 2 MG/ML CARP IV PRN (21:21)
[2021-12-12] MEDS ORDERED: ACETAMINOPHEN 325 MG TAB PO PRN (21:21)
[2021-12-12] MEDS ORDERED: bisacodyL 10 MG SUPP PR PRN (21:21)
[2021-12-12] MEDS ORDERED: oxyCODONE HCL IR 5 MG TAB (IMMEDIATE RELEASE) PO PRN (21:21)
[2021-12-12] MEDS ORDERED: NALOXONE HCL 0.4 MG/1 ML VIAL/CARP IV PRN (21:21)
[2021-12-12] MEDS ORDERED: MoRPHine SULFATE 4 MG/ML 1 ML CARP\\VIAL IV PRN (21:21)
[2021-12-12] MEDS: DOCUSATE SODIUM/SENNA 50/8.6MG TAB PO SCH (21:49)
[2021-12-12] MEDS: LACTATED RINGER'S 1,000 ML IV SCH (21:50)
[2021-12-12] MEDS: oxyCODONE HCL IR 5 MG TAB (IMMEDIATE RELEASE) PO PRN (23:55)
[2021-12-13] MEDS: oxyCODONE HCL IR 5 MG TAB (IMMEDIATE RELEASE) PO PRN (04:15)
[2021-12-13] MEDS ORDERED: TRANEXAMIC ACID 1,000 MG in 0.9 % SODIUM CHLORIDE 100 ML IR SCH (06:00)
[2021-12-13] MEDS: LACTATED RINGER'S 1,000 ML IV SCH (06:00)
--- NOTE | 2021-12-13 07:08 | Anesthesiology Consultation ---
Date of Service December 13, 2021 Assessment & Plan (1) Encounter for pre-operative examination: covid neg 12/12/21 Chart Review Chart Review: Acceptable Risk for Surgery and Patient NOT seen in Pre Admission Testing Hospitalist note 12/13/21: Patient is medically optimized and can proceed to surgery with no additional te sting. Consults Requested none History Surgery Operation Date: 12/13/21 07:00 Proposed Procedures p Left Total Hip Arthroplasty - Oscar Bradley MD Height/Weight Height: 5 ft 9 in Weight: 72.575 kg Allergies Allergy/AdvReac Type Severity Reaction Status Date / Time Iodinated Contrast Media Allergy Severe HIVES AND Verified 12/12/21 18:48 ANAPHYLAXIS cat dander Allergy Intermediate HIVES AND Verified 12/12/21 18:48 ITCHING doxycycline AdvReac Intermediate GI FLU Verified 12/12/21 18:48 LIKE SYMPTOMS erythromycin base AdvReac Mild UP SET Verified 12/12/21 18:48 STOMACH Medications Home Medications Medication Instructions Recorded Confirmed Last Taken albuterol sulfate 90 mcg/actuation 2 puff INHALATION QID PRN 12/12/21 12/12/21 Unknown aerosol inhaler (ProAir HFA) fluticasone propionate 110 1 puff INHALATION BID 12/12/21 12/12/21 12/12/21 mcg/actuation HFA aerosol inhaler (Flovent HFA) multivitamin (Multiple Vitamins) 1 tab PO DAILY 12/12/21 12/12/21 12/12/21 Active Medications Generic Name Dose Route Start Last Admin Trade Name Freq PRN Reason Stop Dose Admin Acetaminophen 650 mg 12/12/21 21:21 12/12/21 21:49 Acetaminophen 325 Mg Tab PO 01/11/22 21:20 650 mg Q6H PRN Administration Pain & Pre PT Lactated Ringer's 1,000 mls @ 125 mls/hr 12/12/21 21:21 12/13/21 06:00 Lr IV 12/13/21 13:20 125 mls/hr .Q8H ABI Administration Oxycodone HCl 5 mg 12/12/21 21:21 12/13/21 04:15 Oxycodone Hcl Ir 5 Mg Tab (Immediate Release) PO 12/26/21 21:20 5 mg Q4H PRN Administration MODERATE Pain (4,5,6) & Pre PT Senna/Docusate Sodium 2 tab 12/12/21 21:21 12/12/21 21:49 Docusate Sodium/Senna 50/8.6mg Tab PO 01/11/22 21:20 Not Given HS ABI Past Medical History Medical History Asthma Rate-related bundle branch block Reports LBBB with HR > 150 Past Family History Family History Other Family history non-contributory Past Surgical History Right proximal humerus fracture repair 10/12/17. Supraclavicular nerve block with GETA. No reported anesthesia complications. Social History Smoking Status: Never smoker Hx Alcohol Use: Yes Alcohol type: beer, wine and hard liquor alcohol intake frequency: holidays/special occasions only Hx Substance Use: No Physical Exam Vital Signs Last Vital Signs Temp 36.7 C 12/12/21 21:24 Pulse 81 12/12/21 21:24 Resp 18 12/12/21 21:24 BP 196/89 H 12/12/21 21:24 Pulse Ox 98 12/12/21 21:24 Testing Laboratory Results 12/12/21 18:30 12/12/21 18:30 PT 10.0 Seconds (9.0-12.0) 12/12/21 18:30 INR 1.0 (0.9-1.1) 12/12/21 18:30 APTT 23.4 Seconds (21.0-31.0) 12/12/21 18:30 Urine Color Yellow 12/12/21 20:20 Urine Appearance Clear (Clear) 12/12/21 20:20 Urine pH 6.0 (4.5-7.5) 12/12/21 20:20 Ur Specific [place] 1.017 (1.000-1.030) 12/12/21 20:20 Urine Protein Negative (Negative) 12/12/21 20:20 Urine Glucose (UA) Negative (Negative) 12/12/21 20:20 Urine Ketones Trace (Negative) H 12/12/21 20:20 Urine Nitrite Negative (Negative) 12/12/21 20:20 Ur Leukocyte Esterase Negative (Negative) 12/12/21 20:20 Urine WBC (Auto) 0 /hpf (0-5) 12/12/21 20:20 Urine RBC (Auto) 0-4 /hpf (0-4) 12/12/21 20:20 U Hyaline Cast (Auto) 1-5 /lpf (0-5) 12/12/21 20:20 U Epithel Cells (Auto) 0-5 /lpf (0-5) 12/12/21 20:20 Urine Bacteria (Auto) Negative (Negative) 12/12/21 20:20 Blood Type O Negative 12/12/21 21:32 Antibody Screen NEGATIVE 12/12/21 21:32 Electrocardiogram Date: 12/12/21 Findings: + NSR @ (80) Poor data quality, interpretation may be adversely affected Normal sinus rhythm Possible Left atrial enlargement Borderline ECG When compared with ECG of 11-DEC-2016 13:58, No significant change was found Chest X-Ray Date: 12/12/21 XR chest 1V portable HISTORY: 71 years-old Female fall acute chest trauma status post fall COMPARISON: Chest radiograph 08/26/2018 TECHNIQUE: Supine AP view of the chest FINDINGS: The cardiomediastinal and hilar silhouettes are unchanged. There is mild chronic interstitial coarsening. No pneumothorax, pleural effusion, airspace consolidation or overt pulmonary edema. Degenerative changes of the shoulders and spine. ORIF changes of the proximal right humerus. IMPRESSION: No acute process.
[2021-12-13] MEDS ORDERED: MIDAZOLAM HCL 1 MG/ML 2ML VIAL ONE ×2 (07:31)
[2021-12-13] MEDS ORDERED: fentaNYL citrate 100 MCG/2 ML VIAL ONE (07:31)
[2021-12-13] MEDS ORDERED: PROPOFOL IV EMULSION 10 MG/ML 20 ML VIAL IV ONE ×3 (07:31→10:27)
[2021-12-13] MEDS ORDERED: LIDOCAINE 2% 2 ML VIAL/AMP(20MG/ML) INFIL ONE (07:31)
[2021-12-13 07:34] LABS: Basophils # (auto) 0.01 K/uL (0-0.2); Basophils % (auto) 0.2 %; Eosinophils # (auto) 0.01 K/uL (0-0.5); Eosinophils % (auto) 0.2 %; Hematocrit (blood only) 38.9 % (37-47); Hemoglobin 13.3 g/dL (12.0-16.0); Immature Granulocytes # (auto) 0.01 K/uL (0.00-0.02); Immature Granulocytes % (auto) 0.2 %; Lymphocytes # (auto) 0.64 K/uL (1.2-3.4); Lymphocytes % (auto) 10.3 %; Mean Corpuscular Hemoglobin 31.1 pg (25-34); Mean Corpuscular Hgb Conc 34.2 g/dL (32-36); Mean Corpuscular Volume 90.9 fL (80-100); Mean Platelet Volume 9.6 fL (7.4-10.4); Monocytes # (auto) 0.31 K/uL (0.11-0.59); Neutrophils # (auto) 5.25 K/uL (1.4-6.5); Neutrophils % (auto) 84.1 %; Platelet Count 229 K/uL (130-400); RDW Coefficient of Variation 12.9 % (11.5-14.5); Red Blood Count 4.28 M/uL (4.2-5.4); White Blood Count 6.23 K/uL (4.8-10.8)
[2021-12-13 08:03] LABS: BUN Creatinine Ratio 18.4 (10-20); Calcium 8.8 mg/dl (8.5-10.1); Est GFR (African American) 91.5 ml/min; Est GFR (Non-African American) 78.9 ml/min; Potassium 3.9 mmol/L (3.5-5.1)
--- NOTE | 2021-12-13 09:25 | Orthopedic Consultation ---
Date of Consultation December 13, 2021 Assessment & Plan (1) Closed fracture of left hip: Patient is a very active 71-year-old female with a displaced left femoral neck fracture. Treatment options were discussed. Given the high rate of failure of open reduction internal fixation of these injuries as well as her high activity level a total hip arthroplasty is recommended treatment. The major risk with this from surgical standpoint is for dislocation. Therefore my plan would be to use a dual mobility acetabular component to try to minimize this. However it Long discussion with the patient about posterior hip precautions after surgery. After reviewing all the risks and benefits of surgery she elected to proceed. All questions were answered. Informed consent was signed. She will proceed to the operating room today for her hip replacement. Readmit to floor after surgery. History of Present Illness Reason for Consultation: Left hip fracture Attending Physician: Romulo Boateng History of Present Illness 71-year-old female, slipped on the ice yesterday landing onto her left buttock. She had immediate onset of pain in her left hip and inability to ambulate. She is brought to the emergency room where x-rays were obtained demonstrating a displaced subcapital femoral neck fracture. She was admitted to the internal medicine service. She has been bedrest overnight. Orthopedics was consulted for management of her left hip fracture. Patient was seen and examined on the floor this morning. She denied pain anywhere else in her body. Only in the left hip. Denies any numbness or tingling down the leg. She is very active walking and doing exercises. Allergies Allergy/AdvReac Type Severity Reaction Status Date / Time Iodinated Contrast Media Allergy Severe HIVES AND Verified 12/12/21 18:48 ANAPHYLAXIS cat dander Allergy Intermediate HIVES AND Verified 12/12/21 18:48 ITCHING doxycycline AdvReac Intermediate GI FLU Verified 12/12/21 18:48 LIKE SYMPTOMS erythromycin base AdvReac Mild UP SET Verified 12/12/21 18:48 STOMACH Home Medications Medication Instructions Recorded Confirmed Type albuterol sulfate 90 mcg/actuation 2 puff INHALATION QID PRN 12/12/21 12/12/21 History aerosol inhaler (ProAir HFA) fluticasone propionate 110 1 puff INHALATION BID 12/12/21 12/12/21 History mcg/actuation HFA aerosol inhaler (Flovent HFA) multivitamin (Multiple Vitamins) 1 tab PO DAILY 12/12/21 12/12/21 History Patient History Medical History Asthma Rate-related bundle branch block Reports LBBB with HR > 150 Family History Other Family history non-contributory Social History Smoking Status: Never smoker Hx Alcohol Use: Yes Alcohol type: beer, wine and hard liquor Hx Substance Use: No Preferred Language: Tamaz[place] Communication Ability: Effective Employment Clerk Required: No Beliefs That Will Affect Care: None Current Living Situation: Spouse Feels Safe at Home: Yes Assistive Devices: Glasses Physical Exam Physical Exam: On exam she is pleasant female resting in bed in some discomfort because of her left hip fracture. She is able to wiggle her toes and fire EHL FHL tib ant gastrocsoleus. Toes are warm and well-perfused. Sensation intact to light touch over the dorsal and plantar aspects of her foot. Skin overlying the left hip is intact. Results & Data ([facility]) Vital Signs (Past 12 Hours) Vital Signs Temp Pulse Resp BP Pulse Ox 12/13/21 07:45 36.9 C 85 16 167/96 H 96 12/13/21 07:14 36.6 C 87 16 181/90 H 97 12/12/21 21:24 36.7 C 81 18 196/89 H 98 Diagnostic Findings X-rays done in the emergency room last night demonstrated a displaced left femoral neck fracture. (1) Closed fracture of left hip Encounter type: initial encounter Qualified Code(s): S72.002A - Fracture of unspecified part of neck of left femur, initial encounter for closed fracture
[2021-12-13] MEDS ORDERED: BUPIVACAINE 0.5 % 5 MG/1 ML PF 10ML VIAL ONE (09:38)
[2021-12-13] MEDS ORDERED: ROPIVACAINE 0.5% HCL/PF 150 MG, BUPIVACAINE 0.75% MPF 20 ML, EPINEPHrine 30MG/30ML (OR ... INSTIL ONE (09:45)
[2021-12-13] MEDS ORDERED: TRANEXAMIC ACID / 0.7% NACL 1000MG/100ML BAG IV ONE (09:46)
[2021-12-13] MEDS ORDERED: TRANEXAMIC ACID 1,000 MG **IV Pre-op IV SCH (10:00)
[2021-12-13] MEDS ORDERED: ceFAZolin 2000MG 2,000 MG/15 ML SYR IV SCH (10:00)
[2021-12-13] MEDS ORDERED: ONDANSETRON INJ 2 MG/ML 2 ML VIAL IV PRN (12:05)
[2021-12-13] MEDS ORDERED: diphenhydrAMINE 50 MG/ML VIAL IV PRN (12:05)
[2021-12-13] MEDS ORDERED: METOCLOPRAMIDE HCL INJ 5 MG/ML 2 ML VIAL IV PRN (12:05)
[2021-12-13] MEDS ORDERED: oxyCODONE HCL IR 5 MG TAB (IMMEDIATE RELEASE) PO PRN (12:05)
[2021-12-13] MEDS ORDERED: NALOXONE HCL 0.4 MG/1 ML VIAL/CARP IV PRN (12:05)
[2021-12-13] MEDS ORDERED: MAGNESIUM HYDROXIDE SUSP 30 ML UDC PO PRN (12:05)
[2021-12-13] MEDS ORDERED: ALUMINUM/MAGNESIUM SUSP 30 ML UDC PO PRN (12:05)
[2021-12-13] MEDS ORDERED: bisacodyL 10 MG SUPP PR PRN (12:05)
--- NOTE | 2021-12-13 12:05 | Operative Report ---
Post Operative Report Pre & Post Diagnosis Operation Date: 12/13/21 07:00 Pre-Op Diagnosis: Left Hip Fracture Post-Op Diagnosis: Left Hip Fracture I identified the patient and participated in the time-out.: Yes Procedure Operation Date: 12/13/21 07:00 Actual Procedures p Left Total Hip Arthroplasty, Uncemented(Left) - Oscar Bradley MD Surgeon Oscar Bradley MD Manager Payer Perla Green MD; Paula Medina PA-C Estimated Blood Loss 100 Findings Consistent with Post-Op Diagnosis Specimens femoral head Description of Procedure I was present during the entire case assisting with positioning, prepping, draping, wound retraction, wound closure, dressing and abduction pillow placement. Fellow also present. I served as an extra set of hands during the case. Please see Dr. Bradley procedure note for specifics of the case. I attest to the content of the Intraoperative Record and any orders documented therein. Any exceptions are noted below.
--- NOTE | 2021-12-13 12:05 | Operative Report ---
Post Operative Report Pre & Post Diagnosis Operation Date: 12/13/21 07:00 Pre-Op Diagnosis: Left Hip Fracture Post-Op Diagnosis: Left Hip Fracture I identified the patient and participated in the time-out.: Yes Procedure Operation Date: 12/13/21 07:00 Actual Procedures p Left Total Hip Arthroplasty, Uncemented(Left) - Oscar Bradley MD Surgeon Jen Bradley Build Master Christiano Green MD, NAFISA BARBA Estimated Blood Loss 100 Findings Consistent with Post-Op Diagnosis Consistent with post op diagnosis. Specimens No specimens Description of Procedure I participated in prepping dressing and assisted Dr. Bradley during the procedure. Please see DR. Bradley note I attest to the content of the Intraoperative Record and any orders documented therein. Any exceptions are noted below. Supervising Physician Co-Signing Physician Notes Dr. Bradley
--- NOTE | 2021-12-13 12:06 | Operative Report ---
Post Operative Report Pre & Post Diagnosis Operation Date: 12/13/21 07:00 Pre-Op Diagnosis: Displaced Left Femoral Neck Fracture Post-Op Diagnosis: Displaced Left Femoral Neck Fracture I identified the patient and participated in the time-out.: Yes Procedure Operation Date: 12/13/21 07:00 Actual Procedures p Left Total Hip Arthroplasty, Uncemented with a Dual Mobility component (Left) - Oscar Bradley MD Surgeon Oscar Bradley MD Supervisor Twisting Department Perla Green MD and NAFISA Medina PA-C Estimated Blood Loss 100 Findings Consistent with Post-Op Diagnosis Specimens Left femoral head Anesthesia Type Spinal MAC Complications none Disposition Disposition: Recovery Room Indications 71-year-old female, slipped on the ice at home yesterday landing on her left buttocks. She was brought to the emergency room by ambulance as she was unable to weight-bear. X-rays demonstrated a displaced left femoral neck fracture. Orthopedics was consulted. Patient was seen and examined this morning. I discussed the diagnosis with the patient. Surgery was recommended to restore her ability to ambulate improve her pain and promote function. Total hip arthroplasty was recommended as the best treatment to achieve the above goals. This does come with the risks in particular of dislocation. Therefore I recommended we use a dual mobility component for her. After reviewing all the risks and benefits of surgery the patient elected to proceed. All questions were answered. Informed consent was signed. Description of Procedure Patient was identified in the preoperative holding area and the surgical site, left hip, was marked. A spinal anesthetic was placed, then the patient was brought back to the main operating room, placed in the operating table and moved into the lateral decubitus position. Axillary roll was placed. All bony prominences were padded. Perioperative antibiotics and tranexamic acid 1 gram IV were administered. Operative extremity was prepped and draped in the normal sterile fashion. Prior to incision a multidisciplinary timeout was called. All in the room were in agreement. We began by making an incision for a posterior approach to the hip. We dissected down through subcutaneous tissues to the level of the fascia. The fascia was incised in line with the incision. Charnley bow was placed. The trochanteric bursa was excised. The piriformis and short external rotators were dissected off the posterior aspect of the hip. A box cut was made in the capsule. The femoral head was dislocated. The femoral neck cut was made at our preoperative template. The acetabulum was then exposed. The labrum was sharply excised. Contents of the cotyloid fossa were removed with electrocautery. We then began reaming at a size 48 mm cup. We reamed up by [address] the way up to a size 58 mm cup. This gave us good bleeding cancellus bone circumferentially. The acetabulum was then irrigated out and dried. The real [place] Gription cup was then impacted down into position with 45 degrees of lateral opening and 25 degrees of anteversion. A single cancellous bone screw was placed up into the ilium. Excellent fixation was obtained. The trial polyethylene liner for a dual mobility component was then screwed into the acetabular shell. Next we turned our attention to the femur. The lateral neck was removed with a box osteotome. Intramedullary guide was used followed by the lateralizing reamer. We then reamed up to a size 6 Craven stem. We then broached all the way up to a size 6. We began trialing with a high offset neck and a +5 head. Hip was reduced. Leg lengths were symmetric. The hip was stable in extension and external rotation, and stable in the sleeper position. At 90 degrees of hip flexion the hip could be internally rotated 65 degrees before beginning to lever out of the cup. I was very happy with the stability exam. Therefore the hip was dislocated and the femoral and acetabular liner trials were removed. The metal inner liner for the acetabulum 58/49 was then impacted down into the acetabular shell. The Lee taper engaged nicely. Next, the femoral canal was irrigated and dried. The real size 6 high offset Craven femoral stem was opened up. This was impacted down into position. It sat at the same level as the femoral trial. Therefore the 28 mm ceramic femoral head with +5 mm offset, as well as a 28 x 49 polyethylene bipolar head for a dual mobility component was opened up and gently impacted down onto the trunnion. The hip was atraumatically reduced. Another 1 gram of IV tranexamic acid was started prior to closure. The wound was irrigated out with sterile Betadine solution. The periarticular injection cocktail was then placed. The short external rotators, piriformis, and posterior capsule were repaired through drill holes in the greater trochanter using #2 Vicryl. The fascia was run with a looped #1 PDS. The subcutaneous layer was closed with #1 PDS. The dermal layer was closed with 2-0 Vicryl. Zip line was used for the skin followed by a Silverlon dressing. A compressive dressing was then placed. The patient was then rolled supine. Leg lengths were rechecked and were symmetric. An abduction pillow was placed. Sedation was lifted and the patient was transferred to recovery room in stable condition. Summary of implants: Depuy [place] Gription Acetabular Shell Sector Cup, 58 mm outer diameter [place] Cancellous bone screw, 6.5 x 40 mm [place] 58/49 dual mobility metal liner DePuy Craven Femoral stem with [place], 12/14 taper, size 6 high offset 28 mm ceramic femoral head with +5 offset DePuy bimentum polyethylene 28/49 bipolar head Postoperative course: Patient will be admitted to the hospital from the recovery room. Patient will be weightbearing as tolerated with posterior hip precautions. Aspirin for DVT prophylaxis I attest to the content of the Intraoperative Record and any orders documented therein. Any exceptions are noted below.
[2021-12-13] MEDS ORDERED: ALBUTEROL HFA 8 GM INHALER INH PRN (12:24)
--- NOTE | 2021-12-13 12:32 | XRay Report ---
XR pelvis 1-2V routine HISTORY: 71 years-old Female Post Surgical left hip total joint arthroplasty COMPARISON: Pelvis and hip radiographs 12/12/2021 TECHNIQUE: AP view of the pelvis FINDINGS: Left hip total joint arthroplasty demonstrates satisfactory alignment. No acute fracture. Expected po stoperative soft tissue swelling and deep tissue air surrounds the left hip. No unexpected opaque for eign body. A portion of the proximal left femur is excluded from the [id number]. IMPRESSION: 1. Limited exam secondary to positioning. The lateral aspect of the proximal left femur is partially excluded from the [id number]. 2. Left hip total joint arthroplasty with expected postoperative changes. ACT 112: Negative or not required by law. The above report was generated using voice recognition software. It may contain grammatical, syntax o r spelling errors. Electronically signed by: Dimitry Fields M.D. 12/13/2021 12:30 PM
--- NOTE | 2021-12-13 13:10 | Anesthesiology Progress Note ---
Date of Service December 13, 2021 Anesthesia Post Procedure Vital Signs Vital Signs: Temp Pulse Pulse Pulse Resp BP BP 12/13/21 12:40 36.7 C 78 14 129/72 12/13/21 12:30 73 18 125/78 12/13/21 12:20 75 18 125/75 12/13/21 12:10 82 16 134/78 12/13/21 12:04 36.4 C L 77 14 127/75 12/13/21 07:45 36.9 C 85 16 167/96 H 12/13/21 07:14 36.6 C 87 16 181/90 H 12/12/21 21:24 36.7 C 81 18 196/89 H 12/12/21 18:14 36.9 C 80 20 172/100 H Pulse Ox 12/13/21 12:40 95 12/13/21 12:30 97 12/13/21 12:20 97 12/13/21 12:10 96 12/13/21 12:04 98 12/13/21 07:45 96 12/13/21 07:14 97 12/12/21 21:24 98 12/12/21 18:14 100 Pain Intensity Left Hip: Pain Intensity: 8 Transfer of Care Handoff Completed per policy Notes Mental Status: alert / awake / arousable and participated in evaluation Nausea / Vomiting: adequately controlled Pain: adequately controlled Airway Patency, RR, SpO2: stable & adequate BP & HR: stable & adequate Hydration State: stable & adequate Neuraxial Anesthesia: was administered and sensory block resolved Anesthetic Complications: no major complications apparent and Pt Satisfied with anesthetic care
[2021-12-13] MEDS: SODIUM CHLORIDE 0.9% 1000ML 1,000 ML IV SCH (13:12)
[2021-12-13] MEDS: KETOROLAC TROMETHAMINE 15 MG/ML VIAL IV SCH ×2 (15:05→20:05)
[2021-12-13] MEDS: ACETAMINOPHEN 500 MG TAB PO SCH ×2 (15:05→22:14)
--- NOTE | 2021-12-13 17:41 | Hospitalist Progress Note ---
Date of Service December 13, 2021 Assessment & Plan (1) Age-related osteopor w/curr pathol fx of left femur w/routine heal: Plan: Left hip fracture s/p fall on ice at her home. s/p ORIF by orthopedics today. Appreciate their assistance. Tylenol 1gm TID for pain control. Morphine IV, oxycodone prn as well. Did receive dexamethasone x 1 today perioperative which will help w/ some post- op control over next 24 hours. Check 25-OH vit D level am. PT, OT, weight-bearing status per ortho. home with home PT/OT at discharge? this is what patient is hoping for. has good support from . check cbc, bmp am. (2) Asthma: Plan: no exacerbation at this time cont flovent maintenance albuterol prn I did offer her albuterol during the visit (3) DVT prophylaxis: Plan: asa 81mg BID Admission and Anticipated Discharge Date Admission Date: December 12, 2021 Subjective saw pt post-op on med/surg floor at bedside feeling better pain-webster; no pain in L hip post-op feels like her "asthma is a little active"; I offered her prn albuterol she hopes to return home at d/c rather than attending inpatient rehab denies cp, denies dyspnea denies abd pain, N/V Review of Systems Review of Systems: gen - ate ok post-op today CV - no orthopnea or cp pulm - minimal cough Physical Exam Physical Exam: gen - NAD, pleasant mouth - MMM neck - no JVD heart - RRR, s1 s2 lungs - CTA b/l, no rales or wheeze abd - soft NT ND BS+ ext - no ankle edema; pulses 2+ b/l musculo - left hip dressings in place, mild L thigh edema Results & Data Results & Data ([facility]) Vital Signs (Past 12 Hours) Vital Signs Temp Pulse Pulse Pulse Resp BP Pulse Ox 12/13/21 14:00 36.6 C 87 16 125/70 95 12/13/21 13:30 36.6 C 86 16 131/64 96 12/13/21 13:00 36.4 C L 77 16 127/77 98 12/13/21 12:40 36.7 C 78 14 129/72 95 12/13/21 12:30 73 18 125/78 97 12/13/21 12:20 75 18 125/75 97 12/13/21 12:10 82 16 134/78 96 12/13/21 12:04 36.4 C L 77 14 127/75 98 12/13/21 07:45 36.9 C 85 16 167/96 H 96 12/13/21 07:14 36.6 C 87 16 181/90 H 97 Laboratory Results Laboratory Results - last 24 hr 12/12/21 12/12/21 12/12/21 18:30 18:30 18:30 WBC 12.03 H RBC 4.48 Hgb 14.2 Hct 41.2 MCV 92.0 MCH 31.7 MCHC 34.5 RDW Std Deviation 42.8 RDW Coeff of José Miguel 12.8 Plt Count 288 MPV 10.1 Immature Gran % (Auto) 0.5 Neut % (Auto) 86.6 Lymph % (Auto) 8.1 [place] % (Auto) 3.9 Eos % (Auto) 0.6 Baso % (Auto) 0.3 Neut # (Auto) 10.41 H Lymph # (Auto) 0.98 L [place] # (Auto) 0.47 Eos # (Auto) 0.07 Baso # (Auto) 0.04 Immature Gran # (Auto) 0.06 H PT 10.0 INR 1.0 APTT 23.4 PTT Ratio 0.9 Sodium 138 Potassium 3.7 Chloride 102 Carbon Dioxide 26 Anion Gap 10 BUN 21 Creatinine 0.89 Est Cr Clr Drug Dosing 60.6 Est GFR ( Amer) 75.6 Est GFR (Non-Af Amer) 65.2 BUN/Creatinine Ratio 23.6 H Glucose 135 H Calcium 9.3 Total Bilirubin 0.5 AST 17 ALT 13 Alkaline Phosphatase 97 Total Protein 7.2 Albumin 4.4 Globulin 2.8 Albumin/Globulin Ratio 1.6 Urine Color Urine Appearance Urine pH Ur Specific [place] Urine Protein Urine Glucose (UA) Urine Ketones Urine Blood Urine Nitrite Urine Bilirubin Urine Urobilinogen Ur Leukocyte Esterase Urine WBC (Auto) Urine RBC (Auto) U Hyaline Cast (Auto) U Epithel Cells (Auto) Urine Bacteria (Auto) Hepatitis C Ab Screen SARS-CoV-2, RNA, NAAT Blood Type Antibody Screen 12/12/21 12/12/21 12/12/21 18:41 20:20 21:32 WBC RBC Hgb Hct MCV MCH MCHC RDW Std Deviation RDW Coeff of José [place] Plt Count MPV Immature Gran % (Auto) Neut % (Auto) Lymph % (Auto) [place] % (Auto) Eos % (Auto) Baso % (Auto) Neut # (Auto) Lymph # (Auto) [place] # (Auto) Eos # (Auto) Baso # (Auto) Immature Gran # (Auto) PT INR APTT PTT Ratio Sodium Potassium Chloride Carbon Dioxide Anion Gap BUN Creatinine Est Cr Clr Drug Dosing Est GFR ( Amer) Est GFR (Non-Af Amer) BUN/Creatinine Ratio Glucose Calcium Total Bilirubin AST ALT Alkaline Phosphatase Total Protein Albumin Globulin Albumin/Globulin Ratio Urine Color Yellow Urine Appearance Clear Urine pH 6.0 Ur Specific [place] 1.017 Urine Protein Negative Urine Glucose (UA) Negative Urine Ketones Trace H Urine Blood Trace H Urine Nitrite Negative Urine Bilirubin Negative Urine Urobilinogen Negative Ur Leukocyte Esterase Negative Urine WBC (Auto) 0 Urine RBC (Auto) 0-4 U Hyaline Cast (Auto) 1-5 U Epithel Cells (Auto) 0-5 Urine Bacteria (Auto) Negative Hepatitis C Ab Screen SARS-CoV-2, RNA, NAAT NEGATIVE Blood Type O Negative Antibody Screen NEGATIVE 12/13/21 12/13/21 12/13/21 07:20 07:20 07:20 WBC 6.23 RBC 4.28 Hgb 13.3 Hct 38.9 MCV 90.9 MCH 31.1 MCHC 34.2 RDW Std Deviation 43.0 RDW Coeff of [place] 12.9 Plt Count 229 MPV 9.6 Immature Gran % (Auto) 0.2 Neut % (Auto) 84.1 Lymph % (Auto) 10.3 [place] % (Auto) 5.0 Eos % (Auto) 0.2 Baso % (Auto) 0.2 Neut # (Auto) 5.25 Lymph # (Auto) 0.64 L [place] # (Auto) 0.31 Eos # (Auto) 0.01 Baso # (Auto) 0.01 Immature Gran # (Auto) 0.01 PT INR APTT PTT Ratio Sodium 137 Potassium 3.9 Chloride 102 Carbon Dioxide 27 Anion Gap 8 BUN 14 Creatinine 0.76 Est Cr Clr Drug Dosing 71.0 Est GFR ( Amer) 91.5 Est GFR (Non-Af Amer) 78.9 BUN/Creatinine Ratio 18.4 Glucose 120 H Calcium 8.8 Total Bilirubin AST ALT Alkaline Phosphatase Total Protein Albumin Globulin Albumin/Globulin Ratio Urine Color Urine Appearance Urine pH Ur Specific [place] Urine Protein Urine Glucose (UA) Urine Ketones Urine Blood Urine Nitrite Urine Bilirubin Urine Urobilinogen Ur Leukocyte Esterase Urine WBC (Auto) Urine RBC (Auto) U Hyaline Cast (Auto) U Epithel Cells (Auto) Urine Bacteria (Auto) Hepatitis C Ab Screen Pending SARS-CoV-2, RNA, NAAT Blood Type Antibody Screen PG Care Time/CCT Total # of Minutes Spent Total Time Spent with Patient: Total time spent is greater than 50% in coordination of care (as documented) at patient's floor/unit and/or counseling patient: Coding Level of Care Code 71898 Subseq Hosp Care Lvl 1 Diagnoses Age-related 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
[2021-12-13] MEDS ORDERED: TRANEXAMIC ACID / 0.7% NACL 1,000 MG/100 ML BAG IV SCH (18:00)
[2021-12-13] MEDS: ceFAZolin 2000MG 2,000 MG/15 ML SYR IV SCH (18:04)
--- NOTE | 2021-12-13 18:18 | Electrocardiogram Report ---
Test Reason : Blood Pressure : / mmHG Vent. Rate : 080 BPM Atrial Rate : 080 BPM P-R Int : 162 ms QRS Dur : 070 ms QT Int : 368 ms P-R-T Axes : 067 024 069 degrees QTc Int : 424 ms Poor data quality, interpretation may be adversely affected Normal sinus rhythm Left atrial enlargement Borderline ECG When compared with ECG of 11-DEC-2016 13:58, No significant change was found Confirmed by Ger Melgar ([id number]) on 12/13/2021 6:17:45 PM Referred By: REFERRED SELF Confirmed By:Ger Melgar
[2021-12-13] MEDS: DOCUSATE SODIUM 100 MG CAP PO SCH (20:11)
[2021-12-13] MEDS ORDERED: SENNA 8.6 MG TAB PO SCH (21:00)
[2021-12-13] MEDS: DOCUSATE SODIUM/SENNA 50/8.6MG TAB PO SCH (21:36)
[2021-12-14] MEDS: SODIUM CHLORIDE 0.9% 1000ML 1,000 ML IV SCH (00:11)
[2021-12-14] MEDS: KETOROLAC TROMETHAMINE 15 MG/ML VIAL IV SCH ×2 (02:42→07:53)
[2021-12-14] MEDS: ceFAZolin 2000MG 2,000 MG/15 ML SYR IV SCH (02:43)
[2021-12-14] MEDS: ACETAMINOPHEN 500 MG TAB PO SCH (05:57)
[2021-12-14] MEDS ORDERED: TRANEXAMIC ACID 100 MG/ML 10 ML VIAL IV SCH (06:00)
[2021-12-14] MEDS: DOCUSATE SODIUM 100 MG CAP PO SCH (07:51)
[2021-12-14 07:56] LABS: Basophils # (auto) 0.01 K/uL (0-0.2); Basophils % (auto) 0.1 %; Hematocrit (blood only) 36.1 % (37-47); Hemoglobin 12.1 g/dL (12.0-16.0); Lymphocytes # (auto) 0.42 K/uL (1.2-3.4); Lymphocytes % (auto) 6.1 %; Mean Corpuscular Hemoglobin 31.3 pg (25-34); Mean Corpuscular Hgb Conc 33.5 g/dL (32-36); Mean Corpuscular Volume 93.5 fL (80-100); Mean Platelet Volume 10.2 fL (7.4-10.4); Monocytes # (auto) 0.28 K/uL (0.11-0.59); Monocytes % (auto) 4.1 %; Neutrophils # (auto) 6.17 K/uL (1.4-6.5); Neutrophils % (auto) 89.7 %; Platelet Count 211 K/uL (130-400); RDW Coefficient of Variation 13.1 % (11.5-14.5); RDW Standard Deviation 44.7 fL (36.4-46.3); Red Blood Count 3.86 M/uL (4.2-5.4); White Blood Count 6.88 K/uL (4.8-10.8)
[2021-12-14] MEDS ORDERED: dexAMETHasone 4 MG TAB PO SCH (08:00)
[2021-12-14 08:22] LABS: BUN Creatinine Ratio 22.4 (10-20); Calcium 8.7 mg/dl (8.5-10.1); Creatinine Clr Calc Pharmacy 63.4 ml/min; Est GFR (African American) 79.9 ml/min; Est GFR (Non-African American) 68.9 ml/min; Potassium 4.1 mmol/L (3.5-5.1)
[2021-12-14] MEDS ORDERED: FLUTICASONE FUROATE 200MCG 14 PUFFS/INHALER INH SCH (09:00)
[2021-12-14] MEDS ORDERED: ASPIRIN 81 MG ECTAB PO SCH (09:00)
[2021-12-14] MEDS ORDERED: MULTIVITAMIN TAB PO SCH (09:00)
[2021-12-14] MEDS ORDERED: NON-FORMULARY MEDICATION (Multivitamin [Multiple Vitamins] Tablet) PO SCH (09:00)
--- NOTE | 2021-12-14 09:55 | Orthopedic Progress Note ---
Date of Service December 14, 2021 Assessment & Plan (1) S/P total hip arthroplasty: Plan: Reviewed total hip precautions PT/OT Weightbearing as tolerated with walker assistance DVT prophylaxis with FLOR stockings and aspirin Abduction pillow use x6 weeks Keep Silverlon dressing in place Pain control with p.o. medication Ice with ED Z wrap Orthopedically patient is stable for discharge pending medicines approval. Will plan on in-home physical therapy for the first 2 weeks postoperatively. Patient will need to follow-up with our clinic ([facility]oped[facility]) in 2 weeks. We will contact the patient with date and time for this follow-up. With questions contact our clinic at [phone] Admission and Anticipated Discharge Date Admission Date: December 12, 2021 Subjective This 71-year-old female is day 1 status post left total hip arthroplasty after sustaining a femoral neck fracture. Patient states that she is doing very well. She has no pain at present. She denies chest pain, shortness of breath, fever, chills, sweats, lethargy or numbness or tingling in her left lower extremity. She is very anxious to be discharged home and is discussed in home physical therapy with case management. Review of Systems Review of Systems: All systems reviewed & are unremarkable except as noted in Subjective Physical Exam Physical Exam: Left hip: Outer dressing was removed. Silverlon is intact, clean and dry. Patient has no tenderness to palpation circumferentially around dressing. She is able to flex her knee actively to 90 degrees. She is able to perform a straight leg raise test. She is able to dorsi and plantarflex her foot without difficulty. Quad strength is 3 out of 5. Logroll test negative. She does experience slight twinge of pain with very light passive internal and external hip rotation. She is neurovascularly intact in left lower extremity. Results & Data ([facility]) Vital Signs (Past 12 Hours) Vital Signs Temp Pulse Resp BP Pulse Ox 12/14/21 07:32 36.6 C 72 18 134/81 96 12/14/21 02:55 36.6 C 65 18 130/78 95 12/13/21 23:39 36.6 C 83 18 125/71 95 Diagnostic Findings Laboratory Results WBC 6.88 K/uL (4.8-10.8) 12/14/21 07:16 RBC 3.86 M/uL (4.2-5.4) L 12/14/21 07:16 Hgb 12.1 g/dL (12.0-16.0) 12/14/21 07:16 Hct 36.1 % (37-47) L 12/14/21 07:16 MCV 93.5 fL (80-100) 12/14/21 07:16 MCH 31.3 pg (25-34) 12/14/21 07:16 MCHC 33.5 g/dL (32-36) 12/14/21 07:16 RDW Std Deviation 44.7 fL (36.4-46.3) 12/14/21 07:16 RDW Coeff of José Miguel 13.1 % (11.5-14.5) 12/14/21 07:16 Plt Count 211 K/uL (130-400) 12/14/21 07:16 MPV 10.2 fL (7.4-10.4) 12/14/21 07:16 Immature Gran % (Auto) 0.0 % 12/14/21 07:16 Neut % (Auto) 89.7 % 12/14/21 07:16 Lymph % (Auto) 6.1 % 12/14/21 07:16 [place] % (Auto) 4.1 % 12/14/21 07:16 Eos % (Auto) 0.0 % 12/14/21 07:16 Baso % (Auto) 0.1 % 12/14/21 07:16 Neut # (Auto) 6.17 K/uL (1.4-6.5) 12/14/21 07:16 Lymph # (Auto) 0.42 K/uL (1.2-3.4) L 12/14/21 07:16 [place] # (Auto) 0.28 K/uL (0.11-0.59) 12/14/21 07:16 Eos # (Auto) 0.00 K/uL (0-0.5) 12/14/21 07:16 Baso # (Auto) 0.01 K/uL (0-0.2) 12/14/21 07:16 Immature Gran # (Auto) 0.00 K/uL (0.00-0.02) 12/14/21 07:16 PT 10.0 Seconds (9.0-12.0) 12/12/21 18:30 INR 1.0 (0.9-1.1) 12/12/21 18:30 APTT 23.4 Seconds (21.0-31.0) 12/12/21 18:30 PTT Ratio 0.9 12/12/21 18:30 Sodium 137 mmol/L (136-145) 12/14/21 07:16 Potassium 4.1 mmol/L (3.5-5.1) 12/14/21 07:16 Chloride 106 mmol/L (98-107) 12/14/21 07:16 Carbon Dioxide 26 mmol/L (21-32) 12/14/21 07:16 Anion Gap 5 (3-11) 12/14/21 07:16 BUN 19 mg/dl (6-23) 12/14/21 07:16 Creatinine 0.85 mg/dl (0.6-1.2) 12/14/21 07:16 Est Cr Clr Drug Dosing 63.4 ml/min 12/14/21 07:16 Est GFR ( Amer) 79.9 ml/min 12/14/21 07:16 Est GFR (Non-Af Amer) 68.9 ml/min 12/14/21 07:16 BUN/Creatinine Ratio 22.4 (10-20) H 12/14/21 07:16 Glucose 117 mg/dl (70-99) H 12/14/21 07:16 Calcium 8.7 mg/dl (8.5-10.1) 12/14/21 07:16 Magnesium 2.0 mg/dl (1.7-2.4) 12/14/21 07:16 Total Bilirubin 0.5 mg/dl (0.2-1.0) 12/12/21 18:30 AST 17 U/L (13-39) 12/12/21 18:30 ALT 13 U/L (7-52) 12/12/21 18:30 Alkaline Phosphatase 97 U/L (34-104) 12/12/21 18:30 Total Protein 7.2 gm/dl (6.0-8.3) 12/12/21 18:30 Albumin 4.4 gm/dl (3.4-5.0) 12/12/21 18:30 Globulin 2.8 gm/dl (2.5-4.0) 01/12/22 18:30 Albumin/Globulin Ratio 1.6 (0.9-2) 12/12/21 18:30 25-OH Vitamin D Total 22.2 ng/ml (30-100) L 12/14/21 07:16 Urine Color Yellow 12/12/21 20:20 Urine Appearance Clear (Clear) 12/12/21 20:20 Urine pH 6.0 (4.5-7.5) 12/12/21 20:20 Ur Specific [place] 1.017 (1.000-1.030) 12/12/21 20:20 Urine Protein Negative (Negative) 12/12/21 20:20 Urine Glucose (UA) Negative (Negative) 12/12/21 20:20 Urine Ketones Trace (Negative) H 12/12/21 20:20 Urine Blood Trace (Negative) H 12/12/21 20:20 Urine Nitrite Negative (Negative) 12/12/21 20:20 Urine Bilirubin Negative (Negative) 12/12/21 20:20 Urine Urobilinogen Negative (Negative) 12/12/21 20:20 Ur Leukocyte Esterase Negative (Negative) 12/12/21 20:20 Urine WBC (Auto) 0 /hpf (0-5) 12/12/21 20:20 Urine RBC (Auto) 0-4 /hpf (0-4) 12/12/21 20:20 U Hyaline Cast (Auto) 1-5 /lpf (0-5) 12/12/21 20:20 U Epithel Cells (Auto) 0-5 /lpf (0-5) 12/12/21 20:20 Urine Bacteria (Auto) Negative (Negative) 12/12/21 20:20 Hepatitis C Ab Screen Neg (Neg) 12/13/21 07:20 SARS-CoV-2, RNA, NAAT NEGATIVE (NEGATIVE) 12/12/21 18:41 Blood Type O Negative 12/12/21 21:32 Antibody Screen NEGATIVE 12/12/21 21:32 Impressions Hip/Pelvis X-Ray 12/12/21 18:35 XR hip LT 2V w pelvis HISTORY: 71 years-old Female fall, pain acute left hip pain status post fall COMPARISON: Left hip radiographs 02/10/2018 TECHNIQUE: AP view of the pelvis with crosstable lateral view of the left hip FINDINGS: Limited exam secondary to positioning. Moderate osteoarthritis of the hips. Mildly demineralized appearance of the bones. The pelvis is suboptimally evaluated secondary to patient rotation. There is an acute fracture of the proximal left femur which appears to be transcervical with impaction and mild apex lateral angulation. IMPRESSION: Acute mildly impacted and angulated fracture of the proximal left femur, likely transcervical. ACT 112: Negative or not required by law. The above report was generated using voice recognition software. It may contain grammatical, syntax or spelling errors. Electronically signed by: Dimitry Fields M.D. 12/12/2021 7:10 PM Chest X-Ray 12/12/21 18:36 XR chest 1V portable HISTORY: 71 years-old Female fall acute chest trauma status post fall COMPARISON: Chest radiograph 08/26/2018 TECHNIQUE: Supine AP view of the chest FINDINGS: The cardiomediastinal and hilar silhouettes are unchanged. There is mild chronic interstitial coarsening. No pneumothorax, pleural effusion, airspace consolidation or overt pulmonary edema. Degenerative changes of the shoulders and spine. ORIF changes of the proximal right humerus. IMPRESSION: No acute process. ACT 112: Negative or not required by law. The above report was generated using voice recognition software. It may contain grammatical, syntax or spelling errors. Electronically signed by: Dimitry Fields M.D. 12/12/2021 7:08 PM Pelvis X-Ray 12/13/21 12:05 XR pelvis 1-2V routine HISTORY: 71 years-old Female Post Surgical left hip total joint arthroplasty COMPARISON: Pelvis and hip radiographs 12/12/2021 TECHNIQUE: AP view of the pelvis FINDINGS: Left hip total joint arthroplasty demonstrates satisfactory alignment. No acute fracture. Expected postoperative soft tissue swelling and deep tissue air surrounds the left hip. No unexpected opaque foreign body. A portion of the proximal left femur is excluded from the [id number]. IMPRESSION: 1. Limited exam secondary to positioning. The lateral aspect of the proximal left femur is partially excluded from the [id number]. 2. Left hip total joint arthroplasty with expected postoperative changes. ACT 112: Negative or not required by law. The above report was generated using voice recognition software. It may contain grammatical, syntax or spelling errors. Electronically signed by: Dimitry Fields M.D. 12/13/2021 12:30 PM
[2021-12-14] MEDS ORDERED: ERGOCALCIFEROL 50,000 UNITS 1250 MCG CAP PO ONE (13:22)
--- NOTE | 2021-12-14 16:15 | Discharge Summary ---
Date of Service date of admission - December 12, 2021 date of discharge - December 14, 2021 Admission HPI Per Admitting Provider Neli Umanzor is a 71yo female with mild intermittent asthma presenting with acute fracture of left hip. Patient slipped on ice this afternoon and fell onto her left hip. She was unable to get up and bear weight. She dragged herself into her home and her called EMS. She denies head trauma or loss of consciousness. She was only down for a short amount of time and did not spend much time outside. No additional complaints at this time. ER Course: Fentanyl 50mcg, Tylenol 1gm Principal Diagnosis Left Hip Fracture s/p ORIF Discharge Exam gen - NAD, a/o x3 mouth - MMM heart - RRR, s1 s2 lungs - CTA b/l abd - soft NT ND BS+ ext - mild left thigh edema, pulses 2+ b/l feet skin - dressings intact L thigh Discharge Data Allergies Allergy/AdvReac Type Severity Reaction Status Date / Time Iodinated Contrast Media Allergy Severe HIVES AND Verified 12/12/21 18:48 ANAPHYLAXIS cat dander Allergy Intermediate HIVES AND Verified 12/12/21 18:48 ITCHING doxycycline AdvReac Intermediate GI FLU Verified 12/12/21 18:48 LIKE SYMPTOMS erythromycin base AdvReac Mild UP SET Verified 12/12/21 18:48 STOMACH Consultations [facility] Orthopedic Surgery PT, OT Procedures Performed Operation Date: 12/13/21 07:00 Actual Procedures p Left Total Hip Arthroplasty, Uncemented(Left) - Oscar Bradley MD Ordered Studies Hip/Pelvis X-Ray 12/12/21 18:35 XR hip LT 2V w pelvis HISTORY: 71 years-old Female fall, pain acute left hip pain status post fall COMPARISON: Left hip radiographs 02/10/2018 TECHNIQUE: AP view of the pelvis with crosstable lateral view of the left hip FINDINGS: Limited exam secondary to positioning. Moderate osteoarthritis of the hips. Mildly demineralized appearance of the bones. The pelvis is suboptimally evaluated secondary to patient rotation. There is an acute fracture of the proximal left femur which appears to be transcervical with impaction and mild apex lateral angulation. IMPRESSION: Acute mildly impacted and angulated fracture of the proximal left femur, likely transcervical. ACT 112: Negative or not required by law. The above report was generated using voice recognition software. It may contain grammatical, syntax or spelling errors. Electronically signed by: Dimitry Fields M.D. 12/12/2021 7:10 PM Chest X-Ray 12/12/21 18:36 XR chest 1V portable HISTORY: 71 years-old Female fall acute chest trauma status post fall COMPARISON: Chest radiograph 08/26/2018 TECHNIQUE: Supine AP view of the chest FINDINGS: The cardiomediastinal and hilar silhouettes are unchanged. There is mild chronic interstitial coarsening. No pneumothorax, pleural effusion, airspace consolidation or overt pulmonary edema. Degenerative changes of the shoulders and spine. ORIF changes of the proximal right humerus. IMPRESSION: No acute process. ACT 112: Negative or not required by law. The above report was generated using voice recognition software. It may contain grammatical, syntax or spelling errors. Electronically signed by: Dimitry Fields M.D. 12/12/2021 7:08 PM Pelvis X-Ray 12/13/21 12:05 XR pelvis 1-2V routine HISTORY: 71 years-old Female Post Surgical left hip total joint arthroplasty COMPARISON: Pelvis and hip radiographs 12/12/2021 TECHNIQUE: AP view of the pelvis FINDINGS: Left hip total joint arthroplasty demonstrates satisfactory alignment. No acute fracture. Expected postoperative soft tissue swelling and deep tissue air surrounds the left hip. No unexpected opaque foreign body. A portion of the proximal left femur is excluded from the [id number]. IMPRESSION: 1. Limited exam secondary to positioning. The lateral aspect of the proximal left femur is partially excluded from the aitdu-rb-vdzf. 2. Left hip total joint arthroplasty with expected postoperative changes. ACT 112: Negative or not required by law. The above report was generated using voice recognition software. It may contain grammatical, syntax or spelling errors. Electronically signed by: Dimitry Fields M.D. 12/13/2021 12:30 PM Hospital Course (1) Age-related osteopor w/curr pathol fx of left femur w/routine heal: Left hip fracture s/p fall on ice at her home. s/p ORIF 12/13/[address] Oscar Bradley, [facility]. Did well post-op during her brief stay. Remained hemodynamically stable with stable labs. Seen by PT/OT - cleared for home with her by them. 25-OH vit D level was low at 22 and will be replaced (see below). Orthopedics advised the following - * aspirin 81mg twice daily x 30 days for DVT proph * diclofenac 75mg twice daily x 30 days for pain control * oxycodone prn pain * f/u 2 weeks with [facility] for wound check I did discuss constipation management in the setting of narcotic usage for her hip pain. She will receive home PT/OT after discharge. As a precautionary measure I advised a PPI to be taken for 30 days for GI prophylaxis given the concomitant aspirin/diclofenac combination. (2) Asthma: no exacerbation during the short hospital stay. cont flovent maintenance. albuterol prn. (3) DVT prophylaxis: Aspirin 81mg BID x 30 days as recommended by orthopedics. Patient was placed on PPI x 30 days for GI prophylaxis as she was also prescribed diclofenac by orthopedics for pain control. (4) Vitamin D deficiency: 25-OH vitamin D level = 22. Received her first dose of ergocalciferol 84973 units while here. Recommended ergocalciferol 68377 units once weekly x 7 additional weeks. Recommend repeat 25-OH vit D level after her course is complete to ensure normalization. Home Health Attestation I certify that this patient is under my care and that I, or a physicians anatomic pathology assistant working with me, had a face to-face encounter that meets the home health gklc-om-ldbo encounter requirements with this patient. The encounter with the patient was in whole, or in part, for the following medical condition, which is the primary reason for home health care (list medical condition): I certify that, based on my findings, the following services are medically necessary home health services: My clinical findings support the need for the above services because: Home Safety Assessment PT Assessment for Endurance / Balance / Strength PT Eval for Safety and Mobility PT Eval for Safety, Gait Training, Assistive Devices PT Gait and Balance Training, Strengthening and Safety Safety Skilled Nsg Assessment Skilled Nsg Assessment Surgical Incision / Wound Vital Signs Further, I certify that my clinical findings support that this patient is homebound (i.e. absences from home require considerable and taxing effort and are for medical reasons or baptist services or infrequently or of short duration when for other reasons) because: Assistance of 1 Person for Ambulation/Activities Transportation Assistance/Unable to Leave Home Unassisted Certification for Home Health Services: Based on the above findings, I certify that this patient is confined to the home and needs intermittent residential care, physical therapy and/or speech therapy or continues to need occupational therapy. The patient is under my care, and I have initiated the establishment of the plan of care. This patient will be followed by a physician who will periodically review the plan of care. Total Time Total Time Spent Total Time Spent (In Minutes): 45 Discharge Plan Discharge Items Patient Disposition: Home - Home Health Services Reason For Visit: LEFT HIP FRACTURE Discharge Diagnosis: Left Hip Fracture with Repair by Dr Bradley on 12/13/21 Activity: Per Instructions section Non-emergency contact: Primary Care Provider and Surgeon Call non-emergency contact if: you have any medication questions, your pain is not controlled, your pain is worsening, your pain is concerning for you, you have a fever, your wound has increased redness, your wound has increased drainage and your wound pain has increased Follow-up/Referrals: Raymond Mayes DO [Primary Care Provider] - 12/19/21 2:10 pm (You will be seeing Dr. Gomez) Oscar Bradley MD [Physician] - 12/28/21 3:30 am (You are scheduled to see NAFISA Medina PA-C) Diet: Regular Addtl Attending Provider Instructions: Post-operative Instructions Dear Patient and Family/Friends, Before you are discharged from the hospital, it is important to know what to expect when you get home after surgery. To that end, we have created this sheet of discharge instructions which covers many commonly asked questions. Make sure you go through this sheet in its entirety with your nurse before you are discharged. Please note that we will go over the specifics of your surgery and recovery when you return for your first post-operative visit. Sincerely, Dr. Bradley Medications 1. Oxycodone 5 mg: Take 1-2 tabs every 4-6 hours as needed for pain. A prescription for 30 tablets will be sent to your pharmacy. 2. Diclofenac sodium 75 mg: Take 1 tab twice daily for the first 30 days postoperatively for pain and inflammation relief. A prescription for this medication will be sent to your pharmacy with 1 refill. 3. Aspirin 81 mg: Take 1 tab twice daily for the first 30 days postoperatively for blood clot prevention. Please purchase this medication. 4. Extra strength Tylenol 500 mg: Take 2 tabs every 6-8 hours as needed for additional pain relief. Please purchase the medication. Pain Expect to be in a fair amount of pain after surgery. Remember, our goal is not to eliminate your pain, but to make it tolerable. It is a good idea to stay ahead of your pain by taking the medications you were prescribed once you get home. Typically, the pain starts improving 3-7 days after surgery. You should start weaning off the narcotic pain medication (oxycodone, hydrocodone, hydromorphone, morphine) as soon as your pain improves. Please call our office if your pain is not adequately controlled. Ice Ice your operative site at least 5 times a day for 15-30 minutes at a time. Make sure you have a thin cloth between the ice or cooling unit and your skin to prevent montez bite. This is especially important if you received a nerve block. Continue icing your operative site for the first 5-7 days after surgery, then as needed. Diet/Nausea/Vomiting Start by drinking clear liquids and eating crackers. If you can tolerate this, then you may resume your normal diet. If you feel nauseated or vomit, take Zofran/ondansetron (if prescribed). Please call our office if you have intractable nausea or vomiting, or, if after hours, you may go to the Emergency Room for help. Constipation Constipation is a common side effect of narcotic pain medication. If you have not had a bowel movement within 2 days after surgery, we recommend purchasing an over the counter laxative such as Milk of Magnesia, Dulcolax, or Miralax from a local pharmacy, and taking it as instructed. Call our clinic if any questions. Slings and Braces If you were placed in a sling or brace, it must be worn at all times, including sleep. You may remove your sling or brace for physical therapy, home exercises, and showering. The length of time you will be in your brace and range of motion restrictions depends on what surgery you had; these details will be reviewed at your first post-operative appointment. Nerve block The anesthesia team sometimes places a nerve block to help with post-operative pain control. This results in significant numbness and inability to move the extremity. The nerve block usually wears off in 8-12 hours, but sometimes can last up to 24 hours. Please call our office if you are still unable to move your extremity after 24 hours, unless you received a pain pump to take home. Nerve blocks typically wear off quickly, so start taking pain medication as soon as you start feeling soreness near your surgical site. Weight bearing and Range of Motion. Do not bear any weight through your operative extremity immediately after surgery. If you had upper extremity surgery, do not lift anything with that arm. If you are in a knee brace, keep it locked in place until your follow-up. We will discuss your weight bearing, range of motion, and lifting restrictions in detail at your first post-operative appointment. Continuous Passive Motion (CPM) Machine If you were prescribed a CPM machine, it will start after your first post- operative appointment, at which time we will give you instructions on the range of motion settings and duration of treatment Physical therapy You will be given a prescription for physical therapy or occupational therapy at your first post-operative appointment. Typically, patients start therapy within 1 week of surgery Wound care and showering We will inspect your wound at your first post-operative visit, and may do a dressing change at that time. Most patients will be in a water-proof dressing that is removed 14 days after surgery. It is normal to see some dried blood on the dressing. Do not remove your dressing, paper strips or sutures yourself unless you are given permission. Showering is allowed the day after surgery. Do not scrub or remove any dressings. The wound should not be submerged underwater (i.e. in a bathtub or pool) until 4 weeks after surgery FLOR stockings If you were given white stockings, these are to be worn at all times except to shower (on both legs) for the first 2 weeks after surgery. Driving You may not drive while taking narcotic pain medication or while in a cast, splint, sling or brace. You, the patient, need to make the final determination about when you are safe to drive, however, the earliest you may consider driving after surgery is below: Hand/Wrist/Elbow Surgery: 3 days Shoulder Surgery: 2 weeks Hip,/Knee/Ankle Surgery: 4 weeks Fracture repair: 6 weeks Return to Work Your return to work depends on what surgery was done and what type of work you do. Please bring any paperwork your employer needs completed to your first post-operative visit. Also, bring a description of your job duties, as this helps us to understand what risks you may face at work. Travel Avoid long distance travel (greater than 1 hour) in airplanes and cars for the first 6 weeks after surgery. If you must travel, you need to have a Doppler ultrasound done before you travel to rule out a blood clot in your legs. Follow-up You should have a follow-up appointment already scheduled 1-2 days after surgery. If not, please contact our office to make this appointment before you leave the hospital. When to call the office It is normal to have swelling and bruising in the limb that was operated on. This will improve with time. It is also normal to have fevers for the first 2 days after surgery. Reasons you should call your doctor include: Uncontrolled pain; Nausea, vomiting, or constipation that does not improve with medication; Fevers over 101.5, chills, sweats; Drainage or bleeding from the wound; Foul odor; Spreading areas of redness; Any other concerns Addtl Roadside Mechanic Provider Instructions: From the [facility] Hospitalist team - Mrs Umanzor, You underwent repair of your left hip fracture by Dr Oscar Bradley on 12/13/21. You did very well post-operatively with stable/normal labs, vital signs, and with your PT/OT sessions. We are recommending home PT/OT to start early this coming week. Most individuals who have a hip fracture typically have osteopenia or osteoporosis. These are bone diseases which cause the bone to be more brittle and more susceptible to fracture. If you haven't had a bone density scan in several years please talk to Dr Mayes about getting one in the next few months. The bone density test can tell you if you have osteopenia or osteoporosis. You have low levels of vitamin D. Your level is 22 (normal is 30 and higher). You received your first dose of prescription vitamin D today. I would recommend 7 more doses of the vitamin D, to be taken once weekly. Your next dose would be due on 12/21/21. I would also recommend that you take an tsgl-jzu-oboofkz calcium supplement (Oscal twice daily is a good option). The pain medication that orthopedics has prescribed - oxycodone - can cause constipation as well as drowsiness. You likely will have to take miralax and/or senakot while taking the oxycodone. Do not drink alcohol if you take the oxycodone. Some people can feel slightly unsteady when they take oxycodone pain killer medication; just use caution. Orthopedics has also prescribed you diclofenac twice daily. This is an anti- inflammatory pill for your hip. For DVT blood clot prevention please take nhiu-lbv-sxhsfmf aspirin 81mg twice daily as advised. To help prevent irritation of the stomach from the aspirin and diclofenac please take for 1 month PANTOPRAZOLE 40mg once daily. Start this today upon returning home. I have called this prescription to your pharmacy for you. Since you will be on aspirin and diclofenac please do not take any efsk-vya-awvugpt motrin, ibuprofen, alleve, or naprosyn. Tylenol is OK. Please use your walker faithfully as directed by orthopedics, PT, and OT. Follow-up - see separate section It was our pleasure to care for you at [facility]! Best wishes for a speedy recovery, Dr Boateng Pending Studies at Discharge: No Stand-Alone Forms: My [facility], Opioid Pain Management, Smoking Cessation Medications and DC Order Prescriptions: New oxycodone 5 mg tablet 5 mg PO Q4H Qty: 30 RF: 0 diclofenac sodium 75 mg tablet,delayed release (DR/EC) 75 mg PO BID 30 Days Qty: 60 RF: 1 ergocalciferol (vitamin D2) 1,250 mcg (50,000 unit) capsule 50,000 unit PO .weekly 49 Days Qty: 7 RF: 0 pantoprazole [Protonix] 40 mg tablet,delayed release (DR/EC) 40 mg PO QAM Qty: 30 RF: 0 Continued albuterol sulfate [ProAir HFA] 90 mcg/actuation HFA aerosol inhaler 2 puff INHALATION QID PRN (Reason: Shortness Of Breath Or Wheezing) RF: 0 Flovent HFA 110 mcg/actuation HFA aerosol inhaler 1 puff INHALATION BID RF: 0 multivitamin [Multiple Vitamins] Tablet 1 tab PO DAILY RF: 0 Discharge Orders: Discharge Order (Routine); Ordered 12/14/21 Ordered By: Romulo Norwood/Other Patient Handouts: Understanding Hip Fractures Admission Data Admit Date/Time: 12/12/21 20:08 Attending Provider: Romulo Boateng Admit Provider: Yu Carson Primary Care Provider: Raymond Mayes Other Providers: Oscar Brdaley ; Yu Carson ; [facility] Other Interventions: Discharge Summary Assessment (RN) Last Done: 12/14/21 16:30 Coding Level of Care Code D/C DAY MANAGEMENT >30 MINS Diagnoses Age-related 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 Vitamin D deficiency E55.9
== END 2021-12-14 17:04 | disposition home health service (06) | DRG 522 ==
LOC: ED 18:10 → 3W 20:08 → SUATTDRO 20:08 → 3W 21:14
DX: J45.20 Mild intermittent asthma, uncomplicated; Z88.1 Allergy status to other antibiotic agents; W00.0XXA Fall on same level due to ice and snow, initial encounter; Z91.041 Radiographic dye allergy status; M80.052A Age-related osteoporosis with current pathological fracture, left femur, initial encounter for fracture

== ENCOUNTER 2024-02-11 11:36 | Observation (INO) ==
--- NOTE | 2024-02-11 12:05 | Emergency Department Note ---
History of Present Illness General Chief complaint: Wrist Pain Stated complaint: L WRIST/ARM PAIN,FALL, Time Seen by Provider: 02/11/24 11:55 History of Present Illness Maximum Pain Intensity: 8 73-year-old female who presents emergency department accompanied by for evaluation of left wrist pain. Patient states she [place] and stepped over the bank to look at something when she slipped on leaves and started to fall forward. She attempted to catch herself with her left wrist on a rock and felt sudden pain. She does note a deformity to the wrist as well as some tingling in her fingers. She denies hitting her head or loss of consciousness. No other injuries. Denies previous injury or surgery to this extremity. She has not taken anything for her symptoms. Incident occurred around 11 AM. Last ate around 730a. Home Medications Medication Instructions Recorded Confirmed Type albuterol sulfate 90 mcg/actuation 2 puff inhalation QID PRN 12/12/21 02/11/24 History aerosol inhaler (ProAir HFA) Shortness Of Breath Or Wheezing fluticasone propionate 110 1 puff inhalation BID 12/12/21 02/11/24 History mcg/actuation HFA aerosol inhaler (Flovent HFA) aspirin 81 mg tablet 81 mg PO DAILY 05/30/23 02/11/24 History cholecalciferol (vitamin D3) 50 25 mcg PO DAILY 05/30/23 02/11/24 History mcg (2,000 unit) capsule (Vitamin D3) multivitamin 1 tab PO QAM 02/11/24 02/11/24 History Allergies Allergy/AdvReac Type Severity Reaction Status Date / Time cat dander Allergy Unknown Hives, Verified 06/19/23 05:34 itching Iodinated Contrast Media Allergy Unknown Hives, Verified 06/19/23 05:34 anaphylaxis doxycycline AdvReac Unknown GI Verified 06/19/23 05:34 flu-like symptoms erythromycin base AdvReac Unknown Upset Verified 06/19/23 05:34 stomach Past Med/Surg History Medical History Cerebrovascular disease Minimal nonspecific chronic small vessel ischemic change per 2018 brain MRI. Unremarkable 10/[address] Remote hx of possible stroke several years ago (per patient, further workup/evaluation determined that she did not have definitive stroke) CAD (coronary artery disease) Mild non-obstructive CAD per 2019 cath Age related osteoporosis Pre-stage Acid reflux Hx History of basal cell carcinoma (BCC) of skin s/p excision (years ago) Borderline high blood pressure Rate-related bundle branch block Reports LBBB with HR > 150 Asthma Surgical History History of cardiac cath 2019- no stents History of surgery fatty tumor removed History of cataract surgery R/L History of endoscopy History of colonoscopy S/P total hip arthroplasty left Family History Other Family history non-contributory Social History Smoking Status: Never smoker Do You Dip or Chew Tobacco: No; Hx Alcohol Use: Yes Alcohol type: beer, wine and hard liquor Hx Substance Use: No Preferred Language: Chinese Communication Ability: Effective Marketing Administrator Required: No Beliefs That Will Affect Care: None marital status: Current Living Situation: Spouse How many Children do You have: 3 Feels Safe at Home: Yes Assistive Devices: Glasses Physical Exam Vital Signs Vital Signs - 24 hr 02/11/24 11:50 02/11/24 14:44 02/11/24 15:33 Temperature 37 C Temperature Source Temporal Artery Scan Pulse Rate 96 H Pulse Rate [Finger] 79 78 Respiratory Rate 18 18 18 Respiratory Effort / Characteristics Non-Labored Spontaneous Non-Labored Spontaneous Non-Labored Respiratory Depth Normal Normal Normal Respiratory Pattern Regular Regular Blood Pressure 168/96 H Blood Pressure [Right Arm] 159/96 H 153/92 H Blood Pressure Mean 120 Blood Pressure Mean [Right Arm] 117 112 Pulse Oximetry 95 99 95 Oxygen Delivery Method Room Air Room Air Room Air Sepsis Recent Fever Within 48 Hours No Sepsis New/Unexplained Change in Mental Status No Sepsis Action Taken by Nursing No Action Required 02/11/24 15:33 Temperature Temperature Source Pulse Rate 77 Pulse Rate [Finger] Respiratory Rate 20 Respiratory Effort / Characteristics Respiratory Depth Respiratory Pattern Blood Pressure Blood Pressure [Right Arm] Blood Pressure Mean Blood Pressure Mean [Right Arm] Pulse Oximetry 95 Oxygen Delivery Method Room Air Sepsis Recent Fever Within 48 Hours Sepsis New/Unexplained Change in Mental Status Sepsis Action Taken by Nursing Constitutional: alert and oriented x3. no acute distress. nontoxic HEENT: normocephalic, atraumatic. normal conjunctiva.PERRLA. EOM's grossly intact. Respiratory: lungs are clear to auscultation without wheezes, rhonchi, or rales bilaterally. equal chest rise. normal respiratory effort, no accessory muscle use. Cardiovascular: normal heart sounds without murmur. regular rate and rhythm. GI: abdomen is soft, nontender.No palpable masses. No rebound tenderness or guarding. MSK: tenderness and obvious deformity left distal wrist. Able to wiggle fingers. No elbow tenderness. Peripheral vascular: upper extremities warm and well perfused with palpable radial pulses. Brisk capillary refill of all digits. Sensation grossly intact Neuro: without focal neuro deficits. GCS 15. Psych:appropriate mood and affect. Course Administered Medications Discontinued Medications Fentanyl Citrate (Fentanyl Citrate Pf 100 Mcg/2 Ml Vial) 50 mcg IV NOW STA Stop: 02/11/24 12:27 Last Admin: 02/11/24 12:42 Dose: Not Given Documented By: MIRZA Fentanyl Citrate (Fentanyl Citrate Pf 100 Mcg/2 Ml Vial) 50 mcg IV NOW STA Stop: 02/11/24 12:54 Last Admin: 02/11/24 14:20 Dose: 50 mcg Documented By: ANNE Lidocaine HCl (Lidocaine 2% Local 50 Ml Vial) 20 ml INSTIL NOW ONE Stop: 02/11/24 13:41 Last Admin: 02/11/24 14:14 Dose: 20 ml Documented By: ANNE Medical Decision Making Differential Diagnosis Fracture, subluxation, dislocation, contusion, ligamentous injury, neurovascular, compartment syndrome, rhabdomyolysis, as well as other pathologies. Imaging Data Radiologist's Impression: Wrist X-Ray 02/11/24 12:03 XR wrist LT w scaphoid CLINICAL HISTORY: FOOSH, deformity TECHNIQUE: 4 views of the left wrist were obtained. Comparison: None available at the time of this dictation. FINDINGS: Mildly comminuted, dorsally displaced and overridden fractures of the distal radius and ulna are seen with likely articular involvement. Degenerative changes are seen in the carpal row and carpometacarpal joint. Soft tissue swelling is seen about the wrist. IMPRESSION: Fractures of the distal radius and ulna, radial fracture is likely intra- articular. ACT 112: Negative or not required by law. Electronically signed by: Marcos Hernandez M.D. 02/11/2024 12:27 PM Wrist X-Ray 02/11/24 14:00 XR wrist LT 2V HISTORY: 73 years-old Female LEFT WRIST CLOSED / REDUCTION acute fracture of the left wrist/forearm COMPARISON: Radiograph of same day at 12:08 PM TECHNIQUE: 2 views of the left wrist FINDINGS: Status post reduction and casting of the acute and comminuted distal radial and ulnar fractures which demonstrate improved alignment. There is mild persistent radial and dorsal displacement. Persistent soft tissue swelling. Bony details limited secondary to casting material. No dislocation or opaque foreign body. IMPRESSION: Improved alignment of the acute distal radial and ulnar fractures status post reduction and casting. ACT 112: Negative or not required by law. The above report was generated using voice recognition software. It may contain grammatical, syntax or spelling errors. Electronically signed by: Dimitry Fields M.D. 02/11/2024 2:56 PM MDM Narrative 73-year-old female who presents to the emergency department for evaluation of left wrist pain status post mechanical fall. Review of pertinent visits and past medical history performed. Vital signs in ED stable, afebrile. Patient was seen and evaluated as above. X-ray of the left wrist was obtained and demonstrates comminuted, dorsally displaced and overriding fractures of the distal radius and ulna with intra-articular involvement. On exam, patient is well-appearing in no acute distress. She is tender over the distal left wrist with obvious deformity. Neurovascularly intact. There are no other signs of trauma on exam indicating need for additional workup. IV access was established for pain control. She was ordered 50 mcg of fentanyl but initially refused the medication. She was updated on exam findings and test results. She did sustain a fracture of the left wrist. I discussed case with on-call orthopedics, Dr. Nguyen who reviewed x-ray imaging. He recommended splinting and getting the wrist as straight as possible with [facility] orthoglas and discharge with outpatient follow-up in his office hopefully this afternoon. She will require surgical intervention within the next few days. I did discuss these recommendations with the patient and she asked if she could follow up with her orthopedist, Dr. Bradley. I advised that as long as she is seen by orthopedics it does not matter who she prefers. Patient reportedly called their office. I then was paged by Dr. Bradley, who would like to come to the emergency room and perform closed reduction via hematoma block. Please see his and his PA's note for further details. Patient did eventually receive the 50 mcg of fentanyl for pain control. She tolerated closed reduction without complication. Dr. Bryant will be admitting the patient to his service with plans for surgical intervention tomorrow. She was admitted in stable condition Case was discussed with the attending, Dr. Davis, who agrees with workup and treatment plan Impression & Plan Closed fracture distal radius and ulna Discharge Plan Visit Data Chief Complaint: Wrist Pain Stated Complaint: L WRIST/ARM PAIN,FALL, ED Provider: Von Davis ED Midlevel Provider: Malu Fairbanks Discharge Problem: Closed fracture distal radius and ulna Patient Disposition: Home - Self-Care Condition: Good Discharge Instructions Krames/Other Patient Handouts: Cast Care, ED Compartment Syndrome Risk Activity Restrictions/Additional Instructions: Please call orthopedics upon discharge to schedule an appointment to happily be seen this afternoon for further evaluation and management of your fracture. You will require surgery per orthopedics for definitive treatment. Keep splint in place until evaluated by Ortho Take Tylenol 1000 mg every 6 hours as needed for mild to moderate pain. Use prescribed tramadol for severe/breakthrough pain as needed every 6 hours. This medication is a narcotic, please no driving, operating heavy machinery or drinking alcohol while taking Elevate and ice the affected remedy 20 minutes at a time 3-4 times a day for swelling Return to the emergency department for any worsening or new concerning symptoms Forms Stand Alone Forms: [facility], Important Visit Information Prescriptions Prescriptions: No Action albuterol sulfate [ProAir HFA] 90 mcg/actuation HFA aerosol inhaler 2 puff INHALATION QID PRN (Reason: Shortness Of Breath Or Wheezing) Patient Comments: never really have to use fluticasone propionate [Flovent HFA] 110 mcg/actuation HFA aerosol inhaler 1 puff INHALATION BID aspirin 81 mg Tablet 81 mg PO DAILY Patient Comments: supposed to be every day/frequently forget. causes bruising. cholecalciferol (vitamin D3) [Vitamin D3] 50 mcg (2,000 unit) Capsule 25 mcg PO DAILY Patient Comments: sometimes multivitamin [Multi-Vitamin] Tablet 1 tab PO QAM Referrals Referrals: Raymond Mayes DO [Primary Care Provider] - Dimitry Nguyen DO [Surgeon] -
--- NOTE | 2024-02-11 12:28 | Emergency Department Note ---
ED Visit Note I was consulted by the Advanced Practice Provider. The case was discussed at length. I personally made/approved the management plan and take responsibility for the patient management. I performed a substantive portion of the visit. This includes the aspects of: [-I independently interpreted the following studies:][Left wrist film shows a fracture of the distal radius and ulna with bony fragmentation and bony displacement] Patient had fractured her wrist/distal radius and ulna. No other concerning injuries by report or exam. Orthopedics was consulted and did evaluate the patient here in the ED. The decision was made for reduction and hospitalization, surgery was tentatively scheduled for tomorrow. .
--- NOTE | 2024-02-11 12:29 | XRay Report ---
XR wrist LT w scaphoid CLINICAL HISTORY: FOOSH, deformity TECHNIQUE: 4 views of the left wrist were obtained. Comparison: None available at the time of this dictation. FINDINGS: Mildly comminuted, dorsally displaced and overridden fractures of the distal radius and ulna are seen with likely articular involvement. Degenerative changes are seen in the carpal row and carpometacarp al joint. Soft tissue swelling is seen about the wrist. IMPRESSION: Fractures of the distal radius and ulna, radial fracture is likely intra-articular. ACT 112: Negative or not required by law. Electronically signed by: Marcos Hernandez M.D. 02/11/2024 12:27 PM
[2024-02-11] MEDS: fentaNYL citrate PF 100 MCG/2 ML VIAL IV STA ×2 (12:42→14:20)
[2024-02-11] MEDS: LIDOCAINE 2% LOCAL 50 ML VIAL INSTIL ONE (14:14)
--- NOTE | 2024-02-11 14:58 | XRay Report ---
XR wrist LT 2V HISTORY: 73 years-old Female LEFT WRIST CLOSED / REDUCTION acute fracture of the left wrist/forearm COMPARISON: Radiograph of same day at 12:08 PM TECHNIQUE: 2 views of the left wrist FINDINGS: Status post reduction and casting of the acute and comminuted distal radial and ulnar fractures which demonstrate improved alignment. There is mild persistent radial and dorsal displacement. Persistent soft tissue swelling. Bony details limited secondary to casting material. No dislocation or opaque fo reign body. IMPRESSION: Improved alignment of the acute distal radial and ulnar fractures status post reduction a nd casting. ACT 112: Negative or not required by law. The above report was generated using voice recognition software. It may contain grammatical, syntax o r spelling errors. Electronically signed by: Dimitry Fields M.D. 02/11/2024 2:56 PM
--- NOTE | 2024-02-11 15:02 | Orthopedic Consultation ---
Date of Consultation February 11, 2024 Assessment & Plan (1) Closed fracture distal radius and ulna: Patient will require left wrist open reduction internal fixation distal radius and ulna fracture. Scheduled for OR tomorrow, 02/12/[address] Bradley -Patient will be admitted to Dr. Bradley's service for OR tomorrow -Consent obtained -Ice and elevate -Leave splint intact, NWB -Sling for comfort -Pain control with Tylenol, oxycodone and Dilaudid for breakthrough pain -NPO at midnight. Patient can have a regular diet until then -Hold any anticoagulants, SCDs while in house -Will obtain EKG and labs for preoperative clearance -Intra-op infection prophylaxis: 2grams Cefazolin -IV LR fluids pre-op -Void environmental field technician to OR pre-op -Plan is to discharge patient after surgery tomorrow pending she is doing okay. Will coordinate follow-up appointments with our office Supervising Physician Co-Signing Physician Notes I saw and examined the patient, reviewed her imaging findings, and formulated the above plan constituting the substantial portion of the visit. Plan will be for open reduction internal fixation of her left distal radius and ulna fractures tomorrow. Will admit to the hospital overnight. N.p.o. after midni ght. May be able to discharge home from the hospital after surgery tomorrow. Procedure note: Preprocedure diagnosis displaced left distal radius and ulna fractures. Postprocedure diagnosis same. Procedure performed: left distal radius fracture hematoma block and closed reduction with long-arm sugar tong splint application. Description of procedure: After verbal informed consent was obtained the dorsal aspect of the wrist was prepped with alcohol. Using sterile technique a hematoma block was then performed using 10 cc of 2 send lidocaine. Did aspirate to confirm fracture hematoma prior to injecting numbing medication. Patient also received 50 mcg of fentanyl IV. She was then placed in the finger traps with approximately 10 pounds of traction through the upper arm. After approximately 45 minutes of traction a reduction maneuver was performed by recreating the mechanism of injury and then applying a dorsal to volar force on the distal fracture fragment. Clinically she had much improved alignment. Therefore, a Sugar-tong splint was then applied which was well molded. Postprocedural films demonstrated improved alignment of the fracture although not anatomic as expected due to the comminuted and unstable nature of the injury. after the procedure she reported improvement in her pain. She was better able to move her fingers. She is neurovascularly intact. She was ins tructed to elevate her arm. She tolerated the procedure well. History of Present Illness Reason for Consultation: Left distal radius and ulna fracture History of Present Illness Neli is a 73-year-old female who presented to the emergency department today with left wrist pain after sustaining a fall and tripping over a rock. She is a known patient of Dr. Bradley. X-rays were done that show distal radius and ulna fracture. We were consulted for further management. Patient denies any previous injuries to this wrist. She did previously fracture her right wrist but surgery was not necessary. She has had her knee and her hip replaced by Dr. Bradley. Her pain is currently controlled. Denies any numbness or tingling. She is relatively healthy. She reports asthma is well-controlled with Flovent daily and albuterol. She takes a baby aspirin daily. She previously saw management lead for suspected stroke but has since been cleared. She has rate related bundle branch block if her heart rate gets above 150 but she says that has not happened to her in quite some time. Denies any kidney or diabetes. No history of MRSA infection or any allergies to metal. Allergies Allergy/AdvReac Type Severity Reaction Status Date / Time cat dander Allergy Unknown Hives, Verified 06/19/23 05:34 itching Iodinated Contrast Media Allergy Unknown Hives, Verified 06/19/23 05:34 anaphylaxis doxycycline AdvReac Unknown GI Verified 06/19/23 05:34 flu-like symptoms erythromycin base AdvReac Unknown Upset Verified 06/19/23 05:34 stomach Home Medications Medication Instructions Recorded Confirmed Type albuterol sulfate 90 mcg/actuation 2 puff inhalation QID PRN 12/12/21 06/19/23 History aerosol inhaler (ProAir HFA) Shortness Of Breath Or Wheezing fluticasone propionate 110 1 puff inhalation BID 12/12/21 06/19/23 History mcg/actuation HFA aerosol inhaler (Flovent HFA) aspirin 81 mg tablet 81 mg PO DAILY 05/30/23 06/19/23 History cholecalciferol (vitamin D3) 50 25 mcg PO UD 05/30/23 06/19/23 History mcg (2,000 unit) capsule (Vitamin D3) Patient History Medical History Cerebrovascular disease Minimal nonspecific chronic small vessel ischemic change per 2018 brain MRI. Unremarkable 10/[address] Remote hx of possible stroke several years ago (per patient, further workup/evaluation determined that she did not have definitive stroke) CAD (coronary artery disease) Mild non-obstructive CAD per 2019 cath Age related osteoporosis Pre-stage Acid reflux Hx History of basal cell carcinoma (BCC) of skin s/p excision (years ago) Borderline high blood pressure Rate-related bundle branch block Reports LBBB with HR > 150 Asthma Surgical History History of cardiac cath 2019- no stents History of surgery fatty tumor removed History of cataract surgery R/L History of endoscopy History of colonoscopy S/P total hip arthroplasty left Family History Other Family history non-contributory Social History Smoking Status: Never smoker Do You Dip or Chew Tobacco: No; Hx Alcohol Use: Yes Alcohol type: beer, wine and hard liquor Hx Substance Use: No Preferred Language: Amharic Communication Ability: Effective Vat Cleaner Required: No Beliefs That Will Affect Care: None marital status: Current Living Situation: Spouse How many Children do You have: 3 Feels Safe at Home: Yes Assistive Devices: Glasses Review of Systems Review of Systems: Per HPI Physical Exam Physical Exam: General: Patient is laying in hospital bed awake alert and oriented, calm and comfortable Cardiovascular: Positive S1, positive S2, regular rate and rhythm Lung: Lungs are clear to auscultation bilaterally in upper and lower lung hines. No wheezing, rales or rhonchi. Left wrist: Prereduction - obvious deformity is noted. Expected swelling and bruising. There is no breaks in the skin. Patient is able to wiggle her fingers. She is able to make a thumbs up. Tendons are intact. She has sensation distally to light touch. 2+ distal radial pulses present. Postreduction sugar-tong plaster splint was applied. Patient reported comfort after reduction and splint application. She is able to better move all 5 of her digits. Neurovascular status unchanged after reduction and splint application. She is sensation intact distally light touch. Capillary refill less than 2 seconds all 5 digits skin is warm and pink. Please refer to Dr. Bradley's note for procedure Results & Data Vital Signs (Past 12 Hours) Vital Signs Temp Pulse Resp BP Pulse Ox O2 Del Method 02/11/24 11:50 37 C 96 H 18 168/96 H 95 Room Air Diagnostic Findings Wrist X-Ray 02/11/24 12:03 XR wrist LT w scaphoid CLINICAL HISTORY: FOOSH, deformity TECHNIQUE: 4 views of the left wrist were obtained. Comparison: None available at the time of this dictation. FINDINGS: Mildly comminuted, dorsally displaced and overridden fractures of the distal radius and ulna are seen with likely articular involvement. Degenerative changes are seen in the carpal row and carpometacarpal joint. Soft tissue swelling is seen about the wrist. IMPRESSION: Fractures of the distal radius and ulna, radial fracture is likely intra- articular. ACT 112: Negative or not required by law. Electronically signed by: Marcos Hernandez M.D. 02/11/2024 12:27 PM
[2024-02-11] MEDS ORDERED: oxyCODONE/ACETAMINOPHEN 5mg/325mg TAB PO PRN (15:03)
[2024-02-11] MEDS ORDERED: ONDANSETRON INJ 2 MG/ML 2 ML VIAL IV PRN (15:03)
[2024-02-11] MEDS ORDERED: ALBUTEROL HFA 8 GM INHALER INH PRN (15:14)
[2024-02-11] MEDS ORDERED: HYDROmorphone INJ 0.5 MG/0.5 ML SYR IV PRN (15:18)
[2024-02-11 17:39] LABS: BUN Creatinine Ratio 24.5 (10-20); Calcium 9.4 mg/dl (8.6-10.3); Creatinine Clr Calc Pharmacy 53.8 ml/min; Est GFR (African American) 69.8 ml/min; Est GFR (Non-African American) 60.2 ml/min; Potassium 3.9 mmol/L (3.5-5.1)
[2024-02-11 18:19] LABS: Basophils # (auto) 0.05 K/uL (0.00-0.20); Basophils % (auto) 0.9 %; Eosinophils # (auto) 0.08 K/uL (0.00-0.50); Eosinophils % (auto) 1.5 %; Hematocrit (blood only) 39.9 % (37.0-47.0); Hemoglobin 13.6 g/dl (12.0-16.0); Immature Granulocytes # (auto) 0.01 K/uL (0.01-0.20); Immature Granulocytes % (auto) 0.2 %; Lymphocytes # (auto) 0.52 K/uL (1.20-3.40); Lymphocytes % (auto) 9.9 %; Mean Corpuscular Hemoglobin 30.9 pg (25.0-34.0); Mean Corpuscular Hgb Conc 34.1 g/dL (32.0-36.0); Mean Corpuscular Volume 90.7 fL (80.0-100.0); Mean Platelet Volume 9.8 fL (9.4-12.4); Monocytes # (auto) 0.23 K/uL (0.11-0.59); Monocytes % (auto) 4.4 %; Neutrophils # (auto) 4.38 K/uL (1.40-6.50); Neutrophils % (auto) 83.1 %; Platelet Count 249 K/uL (130-400); RDW Coefficient of Variation 12.6 % (11.5-14.5); RDW Standard Deviation 41.1 fL (36.4-46.3); White Blood Count 5.27 K/ul (4.8-10.8)
[2024-02-11] MEDS: ACETAMINOPHEN 325 MG TAB PO PRN (18:52)
[2024-02-12] MEDS ORDERED: SODIUM CHLORIDE 0.9% 1,000 ML IV SCH (06:00)
--- NOTE | 2024-02-12 07:23 | Anesthesiology Consultation ---
Date of Service February 12, 2024 Assessment & Plan Chart Review Chart Review: public safety director initiated History Surgery Operation Date: 02/12/24 10:40 Proposed Procedures p Left Distal Radius and Ulna Fracture Open Reduction Internal Fixation - Oscar Bradley MD Height/Weight Height: 5 ft 8 in Weight: 67.8 kg Allergies Allergy/AdvReac Type Severity Reaction Status Date / Time cat dander Allergy Unknown Hives, Verified 06/19/23 05:34 itching Iodinated Contrast Media Allergy Unknown Hives, Verified 06/19/23 05:34 anaphylaxis doxycycline AdvReac Unknown GI Verified 06/19/23 05:34 flu-like symptoms erythromycin base AdvReac Unknown Upset Verified 06/19/23 05:34 stomach Medications Home Medications Medication Instructions Recorded Confirmed Last Taken albuterol sulfate 90 mcg/actuation 2 puff inhalation QID PRN 12/12/21 02/11/24 Unknown aerosol inhaler (ProAir HFA) Shortness Of Breath Or Wheezing fluticasone propionate 110 1 puff inhalation BID 12/12/21 02/11/24 02/11/24 mcg/actuation HFA aerosol inhaler (Flovent HFA) aspirin 81 mg tablet 81 mg PO DAILY 05/30/23 02/11/24 06/12/23 cholecalciferol (vitamin D3) 50 25 mcg PO DAILY 05/30/23 02/11/24 02/11/24 mcg (2,000 unit) capsule (Vitamin D3) multivitamin 1 tab PO QAM 02/11/24 02/11/24 02/11/24 Active Medications Generic Name Dose Route Start Last Admin Trade Name Freq PRN Reason Stop Dose Admin Acetaminophen 650 mg 02/11/24 15:03 02/11/24 23:59 Acetaminophen 325 Mg Tab PO 03/12/24 15:02 650 mg Q6H PRN Administration Mild Pain (Scale 1, 2, 3) Past Medical History Medical History Cerebrovascular disease Minimal nonspecific chronic small vessel ischemic change per 2018 brain MRI. Unremarkable 10/[address] Remote hx of possible stroke several years ago (per patient, further workup/evaluation determined that she did not have definitive stroke) CAD (coronary artery disease) Mild non-obstructive CAD per 2019 cath Age related osteoporosis Pre-stage Acid reflux Hx History of basal cell carcinoma (BCC) of skin s/p excision (years ago) Borderline high blood pressure Rate-related bundle branch block Reports LBBB with HR > 150 Asthma Past Family History Family History Other Family history non-contributory Past Surgical History Surgical History History of cardiac cath 2019- no stents History of surgery fatty tumor removed History of cataract surgery R/L History of endoscopy History of colonoscopy S/P total hip arthroplasty left Social History Smoking Status: Never smoker Do You Dip or Chew Tobacco: No Hx Alcohol Use: Yes Alcohol type: beer, wine and hard liquor alcohol intake frequency: holidays/special occasions only Hx Substance Use: No substance use type: does not use Physical Exam Vital Signs Last Vital Signs Temp 97.9 F 02/11/24 20:44 Pulse 73 02/11/24 20:44 Resp 16 02/11/24 20:44 BP 169/82 H 02/11/24 20:44 Pulse Ox 96 02/11/24 20:44 O2 Del Method Room Air 02/11/24 20:44 Testing Laboratory Results 02/11/24 12:28 02/11/24 12:28 Electrocardiogram Date: 02/11/24 Findings: + NSR @ (73 bpm) Other Testing Echocardiogram Date: 02/18/22 EF 60-65%. No RWMA. No LVH. Grade I DD. No significant valvular disease. No significant change compared to 02/02/21 per report. Stress Test Date: 08/02/19 "Negative stress echo for ischemia, with exercise capacity that was 35% better than most women her age achieving 7.7 METS, 08/02/2019" per received 02/21/23 cardiology office visit note. Attempts to obtain official stress test report unsuccessful. Cardiac Catheterization Date: 09/22/19 Mild non-obstructive CAD with mid-LAD myocardial bridge.
--- OUTSIDE RECORDS SUMMARY | 2024-02-12 07:53 | External Medical Summary | Continuity of Care Document ---
Author Name Unknown Organization [id number] Address [address] [place] [id number] Care Team Providers Care Machine Stonecutter Name Role Phone Raymond Mayes Amparo Primary Care Physician [phone] [id number] Date(s): 01/14/24 - 01/14/24 [facility] [place] [id number] [address] [place] [id number] Encounter Diagnosis Lumbar facet arthropathy(Discharge Diagnosis) - 01/14/24 Discharge Disposition: Home or Self Care Attending Physician: MD Desai Gregory G Allergies, Adverse Reactions, Alerts Substance Reaction Severity Status erythromycin nausea Active Cats Hives Itchy eyes Active Dust Itchy eyes Active IVP dye Shortness of breath Hives Swelling Severe Active Assessment and Plan Extracted from: Title:Follow Up Visit Author:MD Desai Gregory G Date:01/14/24 1.Lumbar facet arthropathy Patient had a wonderful response to bilateral L5-S1 facet joint injections at this point she will follow this up on a as needed as needed basis these may last 3 to 6 months or perhaps longershe was informed on this and will follow-up as needed. Immunizations Given and Recorded Vaccine Date Status Refusal Reason SARS-CoV-2 (COVID-19) mRNA-vacc - [id number] 09/23/23 Recorded SARS-CoV-2 (COVID-19) mRNA-1273 vaccine 1 09/23/23 Recorded SARS-CoV-2 (COVID-19) mRNA BNT-162b2 vax 2 01/24/21 Recorded SARS-CoV-2 (COVID-19) mRNA BNT-162b2 vax 3 01/03/21 Recorded influenza virus vaccine, inactivated 4 09/01/20 Re corded influenza virus vaccine, inactivated 08/16/19 Jaime rded influenza virus vaccine, inactivated 08/26/18 Jaime rded influenza virus vaccine, inactivated 5 09/25/16 Re corded influenza virus vaccine, inactivated 09/26/15 Give n influenza virus vaccine, inactivated 08/29/14 Give n zoster vaccine, inactivated 08/25/18 Recorded zoster vaccine, inactivated 6 05/26/18 Recorded pneumococcal 23-valent vaccine 03/09/18 Given influenza virus vaccine, live 09/02/17 Recorded pneumococcal 13-valent vaccine 07/29/16 Given tetanus/diphtheria/pertuss, acel (Tdap) 05/13/16 G iven 1Result Comment: [facility] 2Result Comment: 2021-12-31: Historical information-source unspecified 3Result Comment: 2021-12-31: Historical information-source unspecified 4Result Comment: [facility] 5Result Comment: 2019-01-04: Historical information-source unspecified 6Result Comment: 2019-01-04: Historical information-source unspecified Medications aspirin 81 mg oral delayed release tablet Start: 02/21/23 10:06:00 EDT, See Instructions, Disp# 100 tab, Refills: 3, 1 tab PO QOD, other Start Date: 02/21/23 Status: Ordered Flovent HFA 110 mcg/inh MDI Start: 09/01/23 12:48:00 EDT, 2 inh, inhaled, bid, Disp# 36 g, Refills: 3, Pharmacy: [facility] Start Date: 09/01/23 Status: Ordered inhaler spacer Start: 04/08/19 11:05:00 EDT, See Instructions, Disp# 1 each, for use with inhaler, Pharmacy: [id number] Start Date: 04/08/19 Status: Ordered multivitamin Start: 03/09/18 10:40:00 EDT, 1 tab, PO, Daily Start Date: 03/09/18 Status: Ordered ProAir HFA 90 mcg/inh inhalation aerosol Start: 08/15/22 12:12:00 EDT, See Instructions, Disp# 1 each, Refills: 3, INHALE 2 PUFFS BY MOUTH 4TIMES DAILY, Brand Medically Necessary, Pharmacy: [id number] Start Date: 08/15/22 Status: Ordered rosuvastatin 10 mg oral tablet Start: 01/06/24 11:08:00 EST, 1 tab, PO, qhs, Disp# 90 tab, Refills: 1 Start Date: 01/06/24 Stop Date: 07/04/24 Status: Ordered Vitamin D3 Start: 02/20/22 12:43:00 EDT Start Date: 02/20/22 Status: Ordered Mental Status 01/14/24 Barriers to Learning one year None evide nt Mandatory Health Literacy Documentation Yes Health Literacy Communication Barriers N ever Primary Language Slovenian Problem List Condition Confirmation Course Effective Dates Status H ealth Status Informant Alopecia areata Confirmed Active Lumbar facet arthropathy Confirmed Active ASTHMA Confirmed Active Rate-related bundle branch block Confirmed Active Changing skin lesion Confirmed Active Dizziness Confirmed Active FAMILY HISTORY OF OTHER SPECIFIED MALIGNANT NEOPLASM 1 Confirmed Active Hand dermatitis Confirmed Active Herpes simplex Confirmed Active History of squamous cell carcinoma Confirmed Active Low back pain Confirmed Active Mild mitral valve prolapse Confirmed Active Actinic keratoses Confirmed Active Oral lichen planus Confirmed Active Osteopenia of both hips Confirmed 07/02/12 Active Bilateral primary osteoarthritis of hip Confirmed Active Bilateral primary osteoarthritis of knee Confirmed Active Seborrheic keratoses Confirmed Active Senile hyperkeratosis Confirmed Active Gluteal tendinitis, left hip Confirmed Active 1daughter had melanoma Diagnosis Diagnosis Type Effective Dates Health Status Clinical Service Informant Lumbar facet arthropathy Discharge Diagnosis 01/14/24 Procedures Procedure Date Related Diagnosis Body Site Status Mammogram 1 07/18/[address] of brain wo IV contrast 2 10/30/22 Completed Shave biopsy and cauterization of skin 07/04/22 Completed Mammogram 3 06/25/22 Completed X-ray of left femur, hip w pelvic 4 04/03/22 Completed DEXA of hip and spine 5 03/21/22 C ompleted Shave biopsy and cauterization of skin 01/30/22 Completed Left hip 6 12/13/21 Completed Ultrasound 7 09/20/21 Completed Shave biopsy 8 02/20/21 Completed Shave biopsy and cauterization of skin 05/16/20 Completed Upper GI endoscopy 9 02/15/20 Comp leted Cardiac catheterization 10 09/22/19 Completed Gynecologica lPathology report 11 10/12/18 Completed Chest x-ray 12 08/26/18 Completed MRI (Magnetic resonance imag ing) of brain 13 03/12/18 Completed REPAIR OF HUMERUS- right 14 10/02/17 Completed Right x-ray of humerus 15, 16 10/02/17 Completed Mammogram 17 08/06/17 Completed Nail avulsion of toe 18 06/19/17 C ompleted MRI,,brain 03/12/17 Completed MRI,of the orbits with and w ithout contrast 03/12/17 Completed Excision 19 12/27/16 Completed Surgery 12/2016 Completed Plain X-ray lumbar spine normal 20 07/29/16 Completed Imaging 21 11/07/15 Completed Mammogram 07/27/15 Completed Procedure 22 07/04/15 Completed Cataract extraction 2014 Co mpleted Colonoscopy 08/04/13 Completed DEXA - Dual energy X-ray karina ton absorptiometry 07/02/12 Completed colonoscopy Completed Tubal ligation Completed wisdom teeth Completed 1Impression: There is no mammographic evidence of malignancy. A 1 year screening mammogram is recommended 2Impression: There is no hemorrhage, mass effect, or evidence, or evidence of acute territorial ischemia by CT criteria. 3Impression: There is no mammographic evidence of malignancy. A 1 year screening mammogram is recommended. 41. No fracture or dislocation within the pelvis, hips, or left femur. 2. Left total hip arthroplasty. The hardware appears intact. 5Impression: Ap spine L1-L4 T-score -1.3 Femur neck T-score -1.7 Femur total -1.3 Z-score 0.1 6replaced 7IMPRESSION: 1. No hydronephhrosis 2. Multiple bilateral renal cysts 3. Exam compromised by suboptimel penetration 8left post thigh 9Impression: -Z-line regular, 40 cm from the incisors - Normal esophagus - Normal stomach - Normal examined duodenum - No specimens collected 10Impression: mild non-obstructive coronary artery disease with mid-LAD myocardial bridge. Uncomplicated right radial arterial access. 11LMP: Postmeno Clinical History: None Diagnosis: Negative for intraepithelial lesion or malignancy. 12No active disease in the chest 13impression: 1 No acute intracranial pathology. No abnormal enhancement 2. Nonspecific subcortical white matter foci of signl abnormallity. These may represent chronic small vessel ischemic changes the appearance is not specific for this entity 14Tolerated well. 15impression; postoperative images from open reduction and internal fixation of a right humeral fracture 162nd imaging report Impression: Improved alignment status post ORIF of the proximal right Humerus 17There is no mammographic evidence of malignancy. A one year screening is recommended. 18and biopsy 19excision of 2cm lymph node from the right thigh. 20Moderate degenerative change of the mid to lower lumbar spine. No active process 21chest 22Bx: Oral cavity right buccal mucosa, biopsy: Fragments of benign squamous mucosa with associated mild acute and chronic inflammation Negative for dysplasia and malignancy 23apr and march 2015 24Colonoscopy normal- Repeat in 10 years. Social History Social History Type Response Smoking Status Never smoked cigaret monica Sex Female Ortho Outpt Note * MD Lloyd, Mason Maradiaga: PERFORM Event Display: Ortho Outpt Note Authored Date: [id number] Chief Complaint f/u from L5-S1 Facet inj. No pain since inj Primary Care Provider DO Gerber, Raymond Christensen Subjective Patient is a 73-year-old female who had abilateral facet joint injectionsand reports that she has beenpain-free since. It took her about a week before she noticed the complete reliefandshe is absolutely thrilled with the pain relief. She quantifies 0 out of 10 pain currently 0 out of 10 at the worst 0- 10 at the least. She is able to do things functionally and is very pleased with it. She also noticed somerelief in the lateral left hip areamusculature 2. Objective Physical Exam Pleasant female seated comfortably no apparent distress her injection sites were visualized were clean dry and intact she had no limitations with extension rotationno tenderness at the lower lumbarspine Assessment/Plan 1.Lumbar facet arthropathy Patient had a wonderful response to bilateral L5-S1 facet joint injections at this point she will follow this up on a as needed as needed basis these may last 3 to 6 months or perhaps longershe wasinformed on this and will follow-up as needed. Electronic Signature on File CC: Raymond Mayes DO [address] [place] [id number] Electronically Reviewed/Signed by: Mason Desai MD Author Signature Dt/Tm:01/14/2024 03:14 PM Immunologist of Orthopaedics & Rehabilitation and Physical Medicine & Rehabilitation [facility] Patient Care team information Care Team Personnel Name: MD Blue Jonathan D Position: Physician - Family Med Member Role: Lifetime Relationship Address: Address: [address] [place] [id number] [place] Name: DO Mayes Franklin J Position: Physician - Family Med Member Role: Primary Care Provider Address: Address: [address] [facility] [address] [address] [place] [address] Care Team Related Persons Name: SOLOMON GÓMEZ Address: home [address] [facility] [place] [phone] Name: SOLOMON GÓMEZ Address: [place] Address: [address] [place] [id number]
--- OUTSIDE RECORDS SUMMARY | 2024-02-12 07:53 | External Medical Summary | Continuity of Care Document ---
Author Name Unknown Organization [facility] [address] [place] [address] [place] [address] [phone] Care Team Providers Care Wine Manager Name Role Phone Raymond Mayes Primary Care Physician [phone] Encounter [facility] [id number] Date(s): 01/06/24 - 01/06/24 [facility] [address] [address] [phone] Encounter Diagnosis Body mass index [BMI] 23.0-23.9, adult(Discharge Diagnosis) - 01/06/24 Family history of stroke (cerebrovascular)(Discharge Diagnosis) - 01/06/24 Elevated low density lipoprotein (LDL) cholesterol level(Discharge Diagnosis) - 01/06/24 Discharge Disposition: Home or Self Care Attending Physician: DO Mayes Franklin J Allergies, Adverse Reactions, Alerts Substance Reaction Severity Status erythromycin nausea Active Cats Hives Itchy eyes Active Dust Itchy eyes Active IVP dye Shortness of breath Hives Swelling Severe Active Assessment and Plan Extracted from: Title:General Exam * Author:DO Mayes Franklin J Date:01/06/24 Impression and Plan Diagnosis Elevated low density lipoprotein (LDL) cholesterol level (HFU06-WI E78.00, Discharge, Medical). Family history of stroke (cerebrovascular) (SCM25-SW Z82.3, Discharge, Medical). Plan: Stroke prevention Questionable personal history of stroke, versus ocular migraine Borderline LDL elevation This discussion was somewhat difficult since we do not have a clear idea if she has a personal history of stroke or not. In terms of her risk factor, there is a family history; she does not have diabetes, nor hypertension. In terms of stroke prevention, we discussed antiplatelet therapy (she is on a daily, low-dose aspirin) and use of statin medications and stroke prevention. In terms of risk-benefit, the greatest add-on would probably be statin therapy with a target LDL of 70 or less. Discussed that there is still varying opinions on optimal LDL -and again, with her still being some uncertainty with regards of her personal history -difficult to say what her LDL goal should be. Nonetheless, I think the addition of even low intensity statin (along with continued low-dose aspirin) would provide some stroke prevention with little side effect. Recommend rosuvastatin 10 mg p.o. nightly; she took a printed prescription and will think about it If she chooses start, will get baseline LFTs first, and then repeat lipid profile and ALT after 6-8 weeks of rosuvastatin Continue aspirin 81 mg daily Borderline blood pressure Her blood pressures at home are actually quite good, with most of them in the 110s to 120s; occasionally 130s, rare 150s I do not think treating her for the occasional 150s would be a great benefit, and may be more problematic in terms of episodic hypotension Continue to monitor home blood pressures. Orders [facility]: rosuvastatin 10 mg oral tablet (Prescribe): 1 tab, PO, qhs, for 90 day, 90 tab, 1 Refill(s) Laboratory: Hepatic Function Panel Request (Order): Routine, 01/06/2024 11:08 EST, Requested Timeframe First Available. [facility] [id number] Outpatient Visit Est Lvl 4 (Order): 01/06/2024 11:12 EST, FAMILY MEDICINE, Elevated low density lipoprotein (LDL) cholesterol level | Family history of stroke (cerebrovascular). Immunizations Given and Recorded Vaccine Date Status Refusal Reason SARS-CoV-2 (COVID-19) mRNA-vacc - [id number] 09/23/23 Recorded SARS-CoV-2 (COVID-19) mRNA-1273 vaccine 1 [...] Comment: 2021-12-31: Historical information-source unspecified 4[facility] Comment[facility] 5Result Comment: 2019-01-04: Historical information-source unspecified 6Result Comment: 2019-01-04: Historical information-source unspecified Medications aspirin 81 mg oral delayed release tablet Start: 02/21/23 10:06:00 EDT, See Instructions, Disp# 100 tab, Refills: 3, 1 tab PO QOD, other Start Date: 02/21/23 Status: Ordered Flovent HFA 110 mcg/inh MDI Start: 09/01/23 12:48:00 EDT, 2 inh, inhaled, bid, Disp# 36 g, Refills: 3, Pharmacy: [facility] Start Date: 09/01/23 Status: Ordered inhaler spacer Start: 04/08/19 11:05:00 EDT, See Instructions, Disp# 1 each, for use with inhaler, Pharmacy: [facility] Start Date: 04/08/19 Status: Ordered multivitamin Start: 03/09/18 10:40:00 EDT, 1 tab, PO, Daily Start Date: 03/09/18 Status: Ordered ProAir HFA 90 mcg/inh inhalation aerosol Start: 08/15/22 12:12:00 EDT, See Instructions, Disp# 1 each, Refills: 3, INHALE 2 PUFFS BY MOUTH 4TIMES DAILY, Brand Medically Necessary, Pharmacy: [facility] Start Date: 08/15/22 Status: Ordered rosuvastatin 10 mg oral tablet Start: 01/06/24 11:08:00 EST, 1 tab, PO, qhs, Disp# 90 tab, Refills: 1 Start Date: 01/06/24 Stop Date: 07/04/24 Status: Ordered Vitamin D3 Start: 02/20/22 12:43:00 EDT Start Date: 02/20/22 Status: Ordered Mental Status 01/06/24 Barriers to Learning one year None evide nt Mandatory Health Literacy Documentation Yes Health Literacy Communication Barriers N ever Primary Language Beninese Problem List Condition Confirmation Course Effective Dates [...] Effective Dates Health Status Clinical Service Informant Body mass index [BMI] 23.0-23.9, adult Discharge Diagnosis 01/06/24 Non-Specified Family history of stroke (cerebrovascular) Discharge Diagnosis 01/06/24 Non-Specified Elevated low density lipoprotein (LDL) cholesterol level Discharge Diagnosis 01/06/24 Non-Specified Procedures Procedure Date Related Diagnosis Body Site [...] 21 11/07/15 Completed Mammogram 07/27/15 Completed Procedure 07/04/15 Completed Cataract extraction 2014 Co mpleted [...] 2015 24Colonoscopy normal- Repeat in 10 years. Results Most recent to oldest [Reference Range]: 1 FIT-DNA Outside Negative (02/03/23 2:02 PM) FIT-DNA Outside Not Processed Sample OK (02/03/23 2:02 PM) Vital Signs Most recent to oldest [Reference Range]: 1 Height 176 cm (01/06/24 10:06 AM) Patient Weight 73.8 kg (01/06/24 10:06 AM) Body Mass Index 23.82 kg/m2 (01/06/24 10:06 AM) Temperature [36.5-37.9 DegC] 37.0 DegC (01/06/24 10:06 AM) Heart Rate 74 bpm (01/06/24 10:06 AM) Respiratory Rate 18 br/min (01/06/24 10:06 AM) Blood Pressure 152/94mmHg (01/06/24 10:06 AM) Cuff Pulse Pressure 58 mmHg (01/06/24 10:06 AM) Social History Social History Type Response Smoking Status Never smoked cigaret monica Sex Female Outpatient Note * DO Mayes Franklin J: PERFORM, MODIFY, SIGN, VERIFY Event Display: .Outpt Note Authored Date: Patient: NELI GÓMEZ Age: 73 years Sex: Female : 1950 Associated Diagnoses: None Author: DO Mayes Franklin J Visit Information Visit type: Scheduled follow-up. Chief Complaint 01/06/2024 10:04 EST Annual Check up, been dealing with some spikes in blood pressure, go over blood work History of Present Illness Neli is here for a routine appointment. Home BP readings look basically 110s-120s, occasional 140 and rare 150 systolic. Her greatest concern and what we spent the most time talk about today was for stroke prevention. Her concern stems from family history of stroke as well as the questionable personal history of a stroke. She had seen neurology back around 2017 and it was not clear if she had a midbrain stroke versusocular migraine (have ocular findings and abnormal MRI, but was not clear if the midbrain finding was that of demyelination or unrelated to the ocular symptoms). The final answer was not very clear; she was placed on aspirin 81 mg daily and has been on that since about 2017 without side effects. Walks every day, 30-40 minutes. Other than the mildly elevated blood pressures at times (though again, most of her blood pressures at home are excellent), she really has no other identifiable risk factors. Her weight is good; A1c is excellent; she gets a good amount of daily exercise. Review of Systems Constitutional: Negative. Respiratory: Negative. Cardiovascular: Negative. Musculoskeletal: Joint pain. Health Status Allergies: Allergic Reactions (Selected) Severe IVP dye- Swelling, hives and shortness of breath. Severity Not Documented Cats- Hives and itchy eyes. Dust- Itchy eyes. Nonallergic Reactions (Selected) Severity Not Documented Erythromycin- Nausea.. Current medications: (Selected) Prescriptions Prescribed Flovent HFA 110 mcg/inh MDI: 2 inh, inhaled, bid, 36 g, 3 Refill(s) ProAir HFA 90 mcg/inh inhalation aerosol: See Instructions, INHALE 2 PUFFS BY MOUTH 4 TIMES DAILY, 1 each, 3 Refill(s) aspirin 81 mg oral delayed release tablet: See Instructions, 1 tab PO QOD, 100 tab, 3 Refill(s) diclofenac sodium 75 mg oral delayed release tablet: 1 tab, PO, bid, for 30 day, with food, PRN: asneeded for pain, 60 tab, 1 Refill(s) inhaler spacer: See Instructions, for use with inhaler, 1 each Documented Medications Documented Vitamin D3: multivitamin: 1 tab, PO, Daily. Problem list: Medical Alopecia areata / SNOMED CT 284687175 / Confirmed Senile hyperkeratosis / SNOMED CT 7095394631 / Confirmed ASTHMA / ICD-9-CM 493 / Confirmed FAMILY HISTORY OF OTHER SPECIFIED MALIGNANT NEOPLASM / ICD-9-CM V16.8 / Confirmed Mild mitral valve prolapse / SNOMED CT 9309091543 / Confirmed Bilateral primary osteoarthritis of hip / SNOMED CT 659152867 / Confirmed Bilateral primary osteoarthritis of knee / SNOMED CT 131439638 / Confirmed Oral lichen planus / SNOMED CT 065736077 / Confirmed Osteopenia of both hips / SNOMED CT 458684944 / Confirmed Dizziness / SNOMED CT 2356331426 / Confirmed Rate-related bundle branch block / SNOMED CT 05085272 / Confirmed Herpes simplex / SNOMED CT 928205373 / Confirmed History of squamous cell carcinoma / SNOMED CT 6799879833 / Confirmed Changing skin lesion / SNOMED CT 3124833995 / Confirmed Actinic keratoses / SNOMED CT 2370249682 / Confirmed Hand dermatitis / SNOMED CT 295744738 / Confirmed Seborrheic keratoses / SNOMED CT 4037356509 / Confirmed Low back pain / SNOMED CT 161208230 / Confirmed Gluteal tendinitis, left hip / SNOMED CT 3150480984 / Confirmed Lumbar facet arthropathy / SNOMED CT 4289112010 / Confirmed All Problems Alopecia areata / SNOMED CT 192728975 / Confirmed Senile hyperkeratosis / SNOMED CT 7278254613 / Confirmed ASTHMA / ICD-9-CM 493 / Confirmed FAMILY HISTORY OF OTHER SPECIFIED MALIGNANT NEOPLASM / ICD-9-CM V16.8 / Confirmed Mild mitral valve prolapse / SNOMED CT 0098197379 / Confirmed Bilateral primary osteoarthritis of hip / SNOMED CT 738284187 / Confirmed Bilateral primary osteoarthritis of knee / SNOMED CT 612981116 / Confirmed Oral lichen planus / SNOMED CT 474293978 / Confirmed Osteopenia of both hips / SNOMED CT 122128521 / Confirmed Dizziness / SNOMED CT 7764638863 / Confirmed Rate-related bundle branch block / SNOMED CT 65474740 / Confirmed Herpes simplex / SNOMED CT 018193777 / Confirmed History of squamous cell carcinoma / SNOMED CT 9640818089 / Confirmed Changing skin lesion / SNOMED CT 8149951329 / Confirmed Actinic keratoses / SNOMED CT 6406082606 / Confirmed Hand dermatitis / SNOMED CT 069931322 / Confirmed Seborrheic keratoses / SNOMED CT 5976076743 / Confirmed Low back pain / SNOMED CT 308016361 / Confirmed Gluteal tendinitis, left hip / SNOMED CT 8895984093 / Confirmed Lumbar facet arthropathy / SNOMED CT 6496268815 / Confirmed. Histories Family History: Skin cancer Daughter Asthma MGM Mother High Blood Pressure Mother MGM Lung cancer.. Father . Social History Social & Psychosocial Habits Alcohol 06/19/2012 Use: Current Type: Wine Frequency: 1-2 times per month Employment/School 10/13/2015 Status: Retired Exercise 06/19/2012 Duration (average number of minutes): 30 Times per week: 5-6 times/week Self assessment: Good condition Exercise type: Walking Home/Environment 06/19/2012 Living situation: Home/Independent Substance Abuse 06/19/2012 Risk Assessment: Denies Substance Abuse Tobacco 06/19/2012 Risk Assessment: Denies Tobacco Use 07/29/2016 Use: Never smoker . Physical Examination Vital Signs 01/06/2024 10:06 EST Temperature 37.0 DegC Temperature Route Oral Heart Rate 74 bpm Respiratory Rate 18 br/min Systolic Blood Pressure 152 mmHg Diastolic Blood Pressure 94 mmHg Cuff Pulse Pressure 58 mmHg SpO2 99 % Measurements from flowsheet : Measurements 01/06/2024 10:10 EST Osteoporosis Screening Tool 0.16 01/06/2024 10:06 EST Height 176 cm Height Method Standing Patient Weight 73.8 kg Weight 73.800 kg Weight Method Standing Scale Body Mass Index 23.82 kg/m2 Body Surface Area 1.9 m2 [place] Body Weight 66.9 kg Height/Weight Refused Height/Weight Taken General: Alert and oriented. HENT: Normocephalic. Neck: Supple, Non-tender. Respiratory: Respirations are non-labored. Cardiovascular: Normal rate, Regular rhythm. Musculoskeletal Normal range of motion. Cognition and Speech: Oriented, Speech clear and coherent, Functional cognition intact. Psychiatric: Cooperative, Appropriate mood & affect, Normal judgment. Health Maintenance Health Maintenance Pending (in the next year) OverDue Adult Influenza Vaccine due 05/30/23 and every 1 year Medicare Annual Wellness Visit due 01/01/24 and every 1 year Due Adult COVID-19 Vaccination due 01/06/24 Unknown Frequency Adult Social Determinants of Health Screening due 01/06/24 Unknown Frequency Satisfied (in the past 1 year) Satisfied Adult COVID-19 Vaccination on 09/23/23. Satisfied by DINH Lin Shelly L Body Mass Index on 01/06/24. Satisfied by DINH Estrada Stacey Colorectal Cancer Screening on 02/03/23. Satisfied by SANNA Garcia Courtney Diabetes Management A1c on 12/22/23. Satisfied by [employer], [id number] Lipid Screening on 12/22/23. Satisfied by [employer]system, [id number] Review / Management Results review: Lab results 12/22/2023 08:56 EST Na 141 mmol/L K 4.1 mmol/L Cl- 106 mmol/L HCO3 28 mmol/L Anion Gap 7 mmol/L BUN 19 mg/dL Cret 0.88 mg/dL eGFR CKD-EPI 69 mL/min/1.73 m2 Glu 106 mg/dL Ca 9.2 mg/dL Vitamin D, 25-Hydroxy 31 ng/mL Chol 196 mg/dL LDL Chol, Calculated 118 mg/dL HDL 52 mg/dL Non-HDL 144 mg/dL Chol/HDL 4 TG 131 mg/dL HbA1c 5.6 % Estimated Average Glucose 114 mg/dL . Impression and Plan Diagnosis Elevated low density lipoprotein (LDL) cholesterol level (STE87-QJ E78.00, Discharge, Medical). Family history of stroke (cerebrovascular) (TQZ86-DU Z82.3, Discharge, Medical). Plan: Stroke prevention Questionable personal history of stroke, versus ocular migraine Borderline LDL elevation This discussion was somewhat difficult since we do not have a clear idea if she has a personal history of stroke or not. In terms of her risk factor, there is a family history; she does not have diabetes, nor hypertension. In terms of stroke prevention, we discussed antiplatelet therapy (she is on a daily, low-dose aspirin) and use of statin medications and stroke prevention. In terms of risk-benefit, the greatest add-on would probably be statin therapy with a target LDL of70 or less. Discussed that there is still varying opinions on optimal LDL -and again, with her still being some uncertainty with regards of her personal history -difficult to say what her LDL goal should be. Nonetheless, I think the addition of even low intensity statin (along with continued low-dose aspirin) would provide some stroke prevention with little side effect. Recommend rosuvastatin 10 mg p.o. nightly; she took a printed prescription and will think about it If she chooses start, will get baseline LFTs first, and then repeat lipid profile and ALT after 6-8weeks of rosuvastatin Continue aspirin 81 mg daily Borderline blood pressure Her blood pressures at home are actually quite good, with most of them in the 110s to 120s; occasionally 130s, rare 150s I do not think treating her for the occasional 150s would be a great benefit, and may be more problematic in terms of episodic hypotension Continue to monitor home blood pressures. Orders [facility] Pharmacy: rosuvastatin 10 mg oral tablet (Prescribe): 1 tab, PO, qhs, for 90 day, 90 tab, 1 Refill(s) Laboratory: Hepatic Function Panel Request (Order): Routine, 01/06/2024 11:08 EST, Requested Timeframe First Available. [facility] Evaluation and Management: [id number] Outpatient Visit Est Lvl 4 (Order): 01/06/2024 11:12 EST, FAMILY MEDICINE, Elevated low densitylipoprotein (LDL) cholesterol level | Family history of stroke (cerebrovascular). Professional Services [id number] time: 30 minutes Documentation and orders: 5 minutes Electronic Signature on File Electronically Reviewed/Signed by: Raymond Mayes DO Author Signature Dt/Tm:01/06/2024 03:43 PM Department of Family Medicine B Patient Care team information Care Team Personnel Name: MD Blue Jonathan D Position: Physician - Family Med Member Role: Lifetime Relationship Address: Address: [address] [place] [address] Name: DO Mayes Franklin J Position: Physician - Family Med Member Role: Primary Care Provider Address: Address: [address] [place] [address] Care Team Related Persons Name: SOLOMON GÓMEZ Address: home [address] [place] [address] JEN[place] [phone] Name: SOLOMON GÓMEZ Address: Counts include [facility] beds at the [facility] Address: [address] [phone]"
--- OUTSIDE RECORDS SUMMARY | 2024-02-12 07:53 | External Medical Summary | Continuity of Care Document ---
Author Name Unknown Organization [facility] [address] Address [address] [place], [place] [id number] Care Team Providers Care Clerical Transcriber Name Role Phone Raymond Mayes Primary Care Physician [phone] [id number] Date(s): 12/22/23 - 12/22/[address] [facility] [address] [facility] [address] [facility] [address] [place], [place] [phone] Discharge Disposition: Home or Self Care Attending Physician: DO Mayes Franklin J Referring Physician: DO Mayes Franklin J Allergies, Adverse Reactions, Alerts Substance Reaction Severity Status erythromycin nausea Active Cats Hives Itchy eyes Active Dust Itchy eyes Active IVP dye Shortness of breath Hives Swelling Severe Active Immunizations Given and Recorded Vaccine Date Status Refusal Reason SARS-CoV-2 (COVID-19) mRNA-vacc - [id number] 09/23/23 Recorded SARS-CoV-2 (COVID-19) mRNA-1273 vaccine 1 [...] 07/29/16 Given tetanus/diphtheria/pertuss, acel (Tdap) 05/13/16 G maritza 1Result Comment: [facility] 2Result Comment: 2021-12-31: Historical information-source unspecified 3Result Comment: 2021-12-31: Historical information-source unspecified [facility] 5Result Comment: 2019-01-04: Historical information-source unspecified 6Result Comment: 2019-01-04: Historical information-source unspecified Medications aspirin 81 mg oral delayed release tablet Start: 02/21/23 10:06:00 EDT, See Instructions, Disp# 100 tab, Refills: 3, 1 tab PO QOD, other Start Date: 02/21/23 Status: Ordered diclofenac sodium 75 mg oral delayed release tablet Start: 06/10/23 13:23:00 EDT, 1 tab, PO, bid, Disp# 60 tab, Refills: 1, with food, PRN: as needed for pain, Pharmacy: [facility] Start Date: 06/10/23 Stop Date: 08/09/23 Status: Ordered Flovent HFA 110 mcg/inh MDI Start: 09/01/23 12:48:00 EDT, 2 inh, inhaled, bid, Disp# 36 g, Refills: 3, Pharmacy: [facility] Start Date: 09/01/23 Status: Ordered inhaler spacer Start: 04/08/19 11:05:00 EDT, See Instructions, Disp# 1 each, for use with inhaler, Pharmacy: [facility] Start Date: 04/08/19 Status: Ordered multivitamin Start: 03/09/18 10:40:00 EDT, 1 tab, PO, Daily Start Date: 03/09/18 Status: Ordered ProAir HFA 90 mcg/inh inhalation aerosol Start: 08/15/22 12:12:00 EDT, See Instructions, Disp# 1 each, Refills: 3, INHALE 2 PUFFS BY MOUTH 4TIMES DAILY, Brand Medically Necessary, Pharmacy: [facility] Start Date: 08/15/22 Status: Ordered Vitamin D3 Start: 02/20/22 12:43:00 EDT Start Date: 02/20/22 Status: Ordered Problem List Condition Confirmation Course Effective Dates [...] left hip Confirmed Active 1daughter had melanoma Procedures Procedure Date Related Diagnosis Body Site [...] Completed Cataract extraction 2014 Co mpleted Colonoscopy 24 08/04/13 Completed DEXA - Dual energy X-ray [...] Status Never smoked cigaret monica Sex Female Patient Care team information Care Team Personnel Name: MD Blue Jonathan D Position: Physician - Family Med Member Role: Lifetime Relationship Address: Address: [address] [address] Name: DO Mayes Franklin J Position: Physician - Family Med Member Role: Primary Care Provider Address: Address: [facility] [address] [address] [place] Care Team Related Persons Name: SOLOMON GÓMEZ Address: [place] Address: home [address] [place] [phone] Name: SOLOMON GÓMEZ Address: home [address] [facility] JEN[place] [phone]
--- OUTSIDE RECORDS SUMMARY | 2024-02-12 07:53 | External Medical Summary | Continuity of Care Document ---
Author Name Unknown Organization [facility] [address] Address [address] [place], [place] [id number] Care Team Providers Care Director Toxicology Name Role Phone Raymond Mayes Primary Care Physician [phone] Encounter [facility] [id number] Date(s): 12/22/23 - 12/22/23 [facility] [address] [facility] [address] [facility] [place], [place] [phone] Encounter Diagnosis Impaired fasting glucose(Final) - Disorder of lipoprotein metabolism, unspecified(Final) - Vitamin D deficiency, unspecified(Final) - Discharge Disposition: Home or Self Care Attending Physician: DO Mayes Franklin J Referring Physician: DO Mayes Franklin J Allergies, Adverse Reactions, Alerts Substance Reaction Severity Status erythromycin nausea Active Cats Hives Itchy eyes Active Dust Itchy eyes Active IVP dye Shortness of breath Hives Swelling Severe Active Immunizations Given and Recorded Vaccine Date Status Refusal Reason SARS-CoV-2 (COVID-19) mRNA-vacc - [id number] 09/23/23 Recorded SARS-CoV-2 (COVID-19) mRNA-1273 vaccine 1 [...] Comment: 2021-12-31: Historical information-source unspecified 4Result Comment: [facility] 5Result Comment: 2019-01-04: Historical information-source unspecified [...] food, PRN: as needed for pain, Pharmacy: [facility] Start Date: 06/10/23 Stop Date: 08/09/23 Status: Ordered Flovent HFA 110 mcg/inh MDI Start: 09/01/23 12:48:00 EDT, 2 inh, inhaled, bid, Disp# 36 g, Refills: 3, Pharmacy: [facility] Start Date: 09/01/23 Status: Ordered inhaler spacer Start: 04/08/19 11:05:00 EDT, See Instructions, Disp# 1 each, for use with inhaler, Pharmacy: [facility] Start Date: 04/08/19 Status: Ordered multivitamin Start: 03/09/18 10:40:00 EDT, 1 tab, PO, Daily Start Date: 03/09/18 Status: Ordered ProAir HFA 90 mcg/inh inhalation aerosol Start: 08/15/22 12:12:00 EDT, See Instructions, Disp# 1 each, Refills: 3, INHALE 2 PUFFS BY MOUTH 4TIMES DAILY, Brand Medically Necessary, Pharmacy: [facility] Start Date: 08/15/22 Status: [...] chronic inflammation Negative for dysplasia and malignancy 23march and march 2015 24Colonoscopy normal- Repeat in 10 years. Results Laboratory List Name Date Basic Metabolic Panel (BASIC METAB PANEL ) 12/22/23 Hemoglobin A1C (HEMOGLOBIN, A1C) 12/22/23 Lipid Profile (LIPOPROTEINS) 12/22/23 Vitamin D, 25-Hydroxy Level, Total (25-H YDROXY VITAMIN D) 12/22/23 Most recent to oldest [Reference Range]: 1 eGFR CKD-EPI [>60 mL/min/1.73 m2] 69 mL/ min/1.73 m2 1 (12/22/23 8:56 AM) Estimated Average Glucose 114 mg/dL 2 (12/22/23 8:56 AM) Vitamin D, 25-Hydroxy [30-100 ng/mL] 31 ng/mL 3 (12/22/23 8:56 AM) Non-HDL 144 mg/dL 4 (12/22/23 8:56 AM) Estimated CrCl 60.10 mL/min (12/22/23 11:14 AM) Anion Gap [5-14 mmol/L] 7 mmol/L (12/22/23 8:56 AM) BUN [7-20 mg/dL] 19 mg/dL (12/22/23 8:56 AM) Ca [8.4-10.2 mg/dL] 9.2 mg/dL (12/22/23 8:56 AM) Chol/HDL 4 (12/22/23 8:56 AM) Chol [125-200 mg/dL] 196 mg/dL (12/22/23 8:56 AM) Cl- [96-107 mmol/L] 106 mmol/L (12/22/23 8:56 AM) HCO3 [22-30 mmol/L] 28 mmol/L (12/22/23 8:56 AM) Cret [0.60-1.00 mg/dL] 0.88 mg/dL (12/22/23 8:56 AM) HbA1c [4.0-6.0 %] 5.6 % (12/22/23 8:56 AM) Glu [74-106 mg/dL] 106 mg/dL (12/22/23 8:56 AM) HDL [>35 mg/dL] 52 mg/dL (12/22/23 8:56 AM) K [3.5-5.1 mmol/L] 4.1 mmol/L (12/22/23 8:56 AM) LDL Chol, Calculated [50-130 mg/dL] 118 mg/dL (12/22/23 8:56 AM) Na [137-145 mmol/L] 141 mmol/L (12/22/23 8:56 AM) TG [<200 mg/dL] 131 mg/dL (12/22/23 8:56 AM) 1Result Comment: Testing Performed By: Dept of Pathology [facility] [address] Larry, [address] [place] [address] 2Result Comment: [facility], [address] [place] [address] 3Result Comment: Deficiency: <20 ng/mL Insufficiency: 21-29 ng/mL Sufficiency: 30-100 ng/mL Potenial Toxicity: >150 ng/mL 4Result Comment: Testing Performed By: Dept of Pathology [facility] [address], [address] [place] [id number] Social History Social History Type Response Smoking Status Never smoked cigaret monica Sex Female Patient Care team information Care Team Personnel Name: MD Mirza, Romulo Gonzales Position: Physician - Family Med Member Role: Lifetime Relationship Address: Address: [address] [place] [address] Name: DO Mayes Franklin J Position: Physician - Family Med Member Role: Primary Care Provider Address: Address: [address] [place] [address] Care Team Related Persons Name: SOLOMON GÓMEZ Address: [place] Address: home [address] [place] [address] [address] [phone] Name: SOLOMON GÓMEZ Address: home [address] [place] [address] JENNA [phone]
--- OUTSIDE RECORDS SUMMARY | 2024-02-12 07:54 | External Medical Summary | Continuity of Care Document ---
Author Name Unknown Organization [facility] [id number] Address [address] [place] [phone] Care Team Providers Care Research Archaeologist Name Role Phone Raymond Mayes Amparo Primary Care Physician [phone] [id number] Date[facility]s): 09/22/23 - 09/22/23 [facility] [address] [id number] [facility] [address] [place] [address] Encounter Diagnosis Low back pain(Discharge Diagnosis) - 09/22/23 Gluteal tendinitis, left hip(Discharge Diagnosis) - 09/22/23 Discharge Disposition: Home or Self Care Attending Physician: MD Lloyd, Mason Maradiaga Referring Physician: MD Kirk, Oscar Sanderson Allergies, Adverse Reactions, Alerts Substance Reaction Severity Status erythromycin nausea Active Cats Hives Itchy eyes Active Dust Itchy eyes Active IVP dye Shortness of breath Hives Swelling Severe Active Assessment and Plan Extracted from: Title:Orthopaedics Office Visit Note Author:Doyle pardo DO, Ravin Date:09/22/23 1.Low back pain Explained to the patient that given extensive surgical hx to hip and knee joint, she could have some weakness in the gluteal medius and core strength deficiencies. Will have patient referred to physical therapy to strengthen these deficiencies. If no improvement with PT can consider further imaging based on her clinical status at her follow up with MRI of Lumbar Spine. Immunizations Given and Recorded Vaccine Date Status Refusal Reason SARS-CoV-2 (COVID-19) mRNA-1273 vaccine 1 09/23/23 Recorded [...] acel (Tdap) 05/13/16 G iven 1Result Comment: [facility] 2Result Comment: 2021-12-31: Historical information-source unspecified 3Result Comment: 2021-12-31: Historical information-source unspecified 4Result Comment: [facility] 5Result Comment: 2019-01-04: Historical information-source unspecified 6Result Comment: 2019-01-04: Historical information-source unspecified Medications aspirin 81 mg oral delayed release tablet Start: 02/21/23 10:06:00 EDT, See Instructions, Disp# 100 tab, Refills: 3, 1 tab PO QOD, other Start Date: 02/21/23 Status: Ordered cephalexin 500 mg oral capsule Start: 06/10/23 13:24:00 EDT, 1 cap, PO, tid, Disp# 15 cap, Post op infection prophylaxis, Pharmacy: [facility] Start Date: 06/10/23 Stop Date: 06/15/23 Status: Ordered diclofenac sodium 75 mg oral delayed release tablet Start: 06/10/23 13:23:00 EDT, 1 tab, PO, bid, Disp# 60 tab, Refills: 1, with food, PRN: as needed for pain, Pharmacy: [facility] Start Date: 06/10/23 Stop Date: 08/09/23 Status: Ordered Flovent HFA 110 mcg/inh MDI Start: 09/01/23 12:48:00 EDT, 2 inh, inhaled, bid, Disp# 36 g, Refills: 3, Pharmacy: [facility] Start Date: 09/01/23 Status: Ordered inhaler spacer Start: 04/08/19 11:05:00 EDT, See Instructions, Disp# 1 each, for use with inhaler, Pharmacy: [facility] Start Date: 04/08/19 Status: Ordered multivitamin Start: 03/09/18 10:40:00 EDT, 1 tab, PO, Daily Start Date: 03/09/18 Status: Ordered oxyCODONE 5 mg oral tablet Start: 06/10/23 14:42:00 EDT, 2 tab, PO, q4h, Disp# 28 tab, Refills: 0, Post op pain control Max 6 tablets per day, PRN: as needed for pain, Pharmacy: [facility] Start Date: 06/10/23 Status: Ordered ProAir HFA 90 mcg/inh inhalation aerosol Start: 08/15/22 12:12:00 EDT, See Instructions, Disp# 1 each, Refills: 3, INHALE 2 PUFFS BY MOUTH 4TIMES DAILY, Brand Medically Necessary, Pharmacy: [facility] Start Date: 08/15/22 Status: Ordered Vitamin D3 Start: 02/20/22 12:43:00 EDT Start Date: 02/20/22 Status: Ordered Zofran 4 mg oral tablet Start: 06/10/23 13:24:00 EDT, 1 tab, PO, q8h, Disp# 14 tab, Post op nausea/vomiting, Pharmacy: [facility] Start Date: 06/10/23 Status: Ordered Mental Status 09/22/23 Barriers to Learning one year None evide nt Mandatory Health Literacy Documentation Yes Health Literacy Communication Barriers N ever Primary Language Hong Konger Problem List Condition Confirmation Course Effective Dates Status H ealth Status Informant Alopecia areata Confirmed Active ASTHMA Confirmed Active Rate-related bundle [...] Diagnosis Diagnosis Type Effective Dates Health Status Cl inical Service Informant Gluteal tendinitis, left hip Discharge Diagnosis 09/22/23 Low back pain Discharge Diagnosis 09/22/23 Procedures Procedure Date Related Diagnosis Body Site [...] 2015 24Colonoscopy normal- Repeat in 10 years. Vital Signs Most recent to oldest [Reference Range]: 1 Height 176 cm (09/22/23 8:32 AM) Patient Weight 75.8 kg (09/22/23 8:32 AM) Body Mass Index 24.47 kg/m2 (09/22/23 8:32 AM) Social History Social History Type Response Smoking Status Never smoked cigaret omnica Sex Female Ortho Outpt Note * MD Desai Gregory G: MODIFY MD Desai Gregory G: MODIFY, MODIFY, MODIFY, MODIFY Event Display: Ortho Outpt Note Authored Date: [id number] Primary Care Provider DO Mayes Franklin J Referring Provider MD Kirk, Oscar Sanderson Reason for Consultation Low back pain s/p L Hip MATTHEW & R TKA Chief Complaint Ref for low back pain. Pain History of Present Illness Neli is a 73-year-old male who is coming in for evaluation of back pain that has been present since 2020. She has a history of lefthiptotal arthroplasty after suffering a fallin 2020. She recovered well from thehip surgery howevernoticed in January 2022at she hadpain in her left groin going down the anterior aspect of her thigh, particularly when she lunged forward to walk. She went to therapythroughout 2021 with no improvement. She continued to have symptoms and thenin May 2023 had a righttotal knee doneand was placed on diclofenacfor pain relief and thisresolved hergroin pain rating down to herleg. She still continues to struggle withback painacrossher lumbar region and gluteal region b/lcurrently with no radiation down the legs. She hasnot noticed that flexion or extension makes it better or worse. Patient walks daily with no major issues. PMHX: reviewed per JAN Surgical Hx: reviewed per JAN Fam Hx: reviewed per JAN Allergies: reviewed per JAN Physical Exam Vitals & Measurements HT:176cm WT:75.800kg(Dosing) WT:75.8kg BMI:24.47 General: well-appearing female no distress MSK - mild TTP at SI joints b/l no TTP along gluteal muscles 5/5 hip abduction, adduction, dorsiflexion, plantar flexion L4/L5/S1 dermatomes intact b/l Diagnostic Results Reviewed XR of her lumbar spine, mild disc space narrowing L4 and L5 with arthritic changes Assessment/Plan 1.Low back pain Explained to the patient that given extensive surgical hx to hip and knee joint, she could have some weakness in the gluteal medius and core strength deficiencies. Will have patient referred to physical therapy to strengthen these deficiencies. If no improvement with PT can consider further imagingbased on her clinical status at her follow up with MRI of Lumbar Spine. Attestation I saw and evaluated the patient on the date of service. I discussed with and agree with his findings and plan as documented in his note. Mason Desai MD Problem List/Past Medical History Ongoing Actinic keratoses Alopecia areata ASTHMA Bilateral primary osteoarthritis of hip Bilateral primary osteoarthritis of knee Changing skin lesion Dizziness FAMILY HISTORY OF OTHER SPECIFIED MALIGNANT NEOPLASM Gluteal tendinitis, left hip Hand dermatitis Herpes simplex History of squamous cell carcinoma Low back pain Mild mitral valve prolapse Oral lichen planus Osteopenia of both hips Rate-related bundle branch block Seborrheic keratoses Senile hyperkeratosis Historical Bite wound Closed fracture of right proximal humerus Colles' fracture of right radius Contracture of elbow joint Contracture of hamstring Contracture of wrist Hip strain History of skin cancer Lichen planus Lumbar strain Prediabetes Preop examination S/P ORIF (open reduction internal fixation) fracture Tick bite Visit for preventive health examination Wrist pain, right Procedure/Surgical History Mammogram (07/18/2023)CT of brain wo IV contrast (10/30/2022)Shave biopsy and cauterization of skin (07/04/2022)Mammogram (06/25/2022)X-ray of left femur, hip w pelvic (04/03/2022)DEXA of hip and spine (03/21/2022)Shave biopsy and cauterization of skin (01/30/2022)Left hip (0 12/13/2021)Ultrasound (09/20/2021)Shave biopsy (02/20/2021)Shave biopsy and cauterization of skin (05/16/2020)Upper GI endoscopy (02/15/2020)Cardiac catheterization (09/22/2019)Gynecologica lPathology report (10/12/2018)Chest x-ray (08/26/2018)MRI (Magnetic resonance imaging)of brain (03/12/2018)REPAIR OF HUMERUS- right (10/02/2017)Right x- ray of humerus (10/02/2017)Mammogram (08/06/2017)Nail avulsion of toe (06/19/2017)MRI,,brain (03/12/2017)MRI,of theorbits with and without contrast (03/12/2017)Excision (12/27/2016)Surgery (12/2016)Plain X-ray lumbar spine normal (07/29/2016)Imaging (11/07/2015)Mammogram (07/27/2015)Procedure (07/04/2015)Cataract extraction (2014)Colonoscopy (08/04/2013)DEXA - Dual energy X-ray photonabsorptiometry (07/02/2012)wisdom teethTubal ligationcolonoscopy Medications albuterol(ProAir HFA 90 mcg/inh inhalation aerosol), See Instructions, 3 refills aspirin(aspirin 81 mg oral delayed release tablet), See Instructions, 3 refills cephalexin(cephalexin 500 mg oral capsule), 500 mg= 1 cap, PO, tid cholecalciferol(Vitamin D3) diclofenac(diclofenac sodium 75 mg oral delayed release tablet), 75 mg= 1 tab, PO, bid, PRN, 1 refills fluticasone(Flovent HFA 110 mcg/inh MDI), 2 inh, inhaled, bid inhalation accessory(inhaler spacer), See Instructions multivitamin, 1 tab, PO, Daily ondansetron(Zofran 4 mg oral tablet), 4 mg= 1 tab, PO, q8h oxyCODONE(oxyCODONE 5 mg oral tablet), 10 mg= 2 tab, PO, q4h, PRN Allergies IVP dye(Severe)Shortness of breath, Hives, Swelling CatsHives, Itchy eyes DustItchy eyes erythromycinnausea Social History Smoking Status Never smoked cigarettes Alcohol Use:Current Type:Wine Frequency:1-2 times per month Employment/School Status:Retired Exercise Duration (average number of minutes):30 Times per week:5-6 times/week Self assessment:Good condition Exercise type:Walking Home/Environment Living situation:Home/Independent Substance Abuse - Denies Substance Abuse Tobacco - Denies Tobacco Use Use:Never smoker Family History Asthma: Mother and MGM. COPD: Negative: Brother. High Blood Pressure: Mother and MGM. Lung cancer..: Father. Skin cancer: Daughter. Health Status Family Member(s) Immunizations Vaccine Date Status SARS-CoV-2 (COVID-19) mRNA BNT-162b2 vax 01/24/2021 Recorded Comments : 2021-12-31: Historical information-source unspecified SARS-CoV-2 (COVID-19) mRNA BNT-162b2 vax 01/03/2021 Recorded Comments : 2021-12-31: Historical information-source unspecified influenza virus vaccine, inactivated 09/01/2020 Recorded Comments : [facility] influenza virus vaccine, inactivated 08/16/2019 Recorded influenza virus vaccine, inactivated 08/26/2018 Recorded zoster vaccine, inactivated 08/25/2018 Recorded zoster vaccine, inactivated 05/26/2018 Recorded Comments : 2019-01-04: Historical information-source unspecified pneumococcal 23-valent vaccine 03/09/2018 Given influenza virus vaccine, live 09/02/2017 Recorded influenza virus vaccine, inactivated 09/25/2016 Recorded Comments : 2019-01-04: Historical information-source unspecified pneumococcal 13-valent vaccine 07/29/2016 Given tetanus/diphtheria/pertuss, acel (Tdap) 05/13/2016 Given influenza virus vaccine, inactivated 09/26/2015 Given influenza virus vaccine, inactivated 08/29/2014 Given Recommendations Health Maintenance Pending(in the next year) OverDue Adult Influenza Vaccine due05/31/23and every 1year Due Adult COVID-19 Vaccination due09/22/23Unknown Frequency Due In Future Medicare Annual Wellness Visit not due until01/01/24and every 1year Body Mass Index not due until09/21/24and every 1year Satisfied(in the past 1 year) Satisfied Body Mass Index on09/22/23.Satisfied by DINH Negro Angela M Colorectal Cancer Screening on02/03/23.Satisfied by SANNA Garcia Courtney Medicare Annual Wellness Visit on01/01/23.Satisfied by DO Mayes Franklin J Electronic Signature on File CC: Raymond Myaes DO [address] [place] [address] CC: Oscar Bradley MD [address] [place] [address] Electronically Reviewed/Signed by: Dre Mitchell DO Author Signature Dt/Tm:09/22/2023 09:14 AM Resident Division of Sports Medicine Electronically Reviewed/Signed by: Dre Mitchell DO Cosigner Signature Dt/Tm: 09/22/2023 09:25 AM Resident Division of Sports Medicine Electronically Reviewed/Signed by: Mason Desai MD Cosignmarii Signature Dt/Tm: 09/22/2023 10:37 AM Staple Processing Machine Operator of Orthopaedics & Rehabilitation and Physical Medicine & Rehabilitation RP Patient Care team information Care Team Personnel Name: MD Blue Jonathan D Position: Physician - Family Med Member Role: Lifetime Relationship Address: Address: [address] [place] [address] [place] Name: DO Mayes Franklin J Position: Physician - Family Med Member Role: Primary Care Provider Address: Address: [address] [facility] [address] [place] [address] Care Team Related Persons Name: SOLOMON GÓMEZ Address: [place] Address: [address] [place] [phone] Name: SOLOMON GÓMEZ Address: [address] JENNA [phone]
--- OUTSIDE RECORDS SUMMARY | 2024-02-12 07:54 | External Medical Summary | Continuity of Care Document ---
Author Name Unknown Organization [place] [id number] Address [address] [place] [phone] Care Team Providers Care Director Adult Name Role Phone Raymond Mayes Amparo Primary Care Physician [phone] [id number] Date(s): 11/14/23 - 11/14/23 [facility] [place] [id number] [address] [facility] [address] [place] [id number] Encounter Diagnosis Lumbar facet arthropathy(Discharge Diagnosis) - 11/14/23 Discharge Disposition: Home or Self Care Attending Physician: MD Desai Gregory G Allergies, Adverse Reactions, Alerts Substance Reaction Severity Status erythromycin nausea Active Cats Hives Itchy eyes Active Dust Itchy eyes Active IVP dye Shortness of breath Hives Swelling Severe Active Assessment and Plan Extracted from: Title:Follow Up Visit Author:MD Desai Gregory G Date:11/14/23 1.Lumbar facet arthropathy Patient is really describing chronic facet arthropathy that has not responded to conservative treatment with physical therapyin which she is improving her core strength. We discussed treatment options and she wishes to proceed with bilateral L5-S1 facet joint injection she is at an ASA level 2 status for the upcoming injections we will follow-up after the injections are done. Immunizations Given and Recorded Vaccine Date Status Refusal Reason SARS-CoV-2 (COVID-19) mRNA-vacc - [id number] 09/23/23 Recorded SARS-CoV-2 (COVID-19) mRNA-1273 vaccine 1 [...] 07/29/16 Given tetanus/diphtheria/pertuss, acel (Tdap) 05/13/16 G ivfelicia 1Result Comment: [facility] 2Result Comment: 2021-12-31: Historical information-source unspecified 3Result Comment: 2021-12-31: Historical information-source unspecified 4Result Comment: [facility] 5Result Comment: 2019-01-04: Historical information-source [...] 15 cap, Post op infection prophylaxis, Pharmacy: [facility] Start Date: 06/10/23 Stop Date: 06/15/23 Status: Ordered diclofenac sodium 75 mg oral delayed release tablet Start: 06/10/23 13:23:00 EDT, 1 tab, PO, bid, Disp# 60 tab, Refills: 1, with food, PRN: as needed for pain, Pharmacy: [facility] Start Date: 06/10/23 Stop Date: 08/09/23 Status: Ordered doxycycline hyclate 100 mg oral capsule Start: 10/07/23 10:31:00 EST, 2 cap, PO, ONCE, Disp# 2 cap, Refills: 0, Pharmacy: [id number] Start Date: 10/07/23 Status: Ordered Flovent HFA 110 mcg/inh MDI Start: 09/01/23 12:48:00 EDT, 2 inh, inhaled, bid, Disp# 36 g, Refills: 3, Pharmacy: [facility] Start Date: 09/01/23 Status: Ordered inhaler spacer Start: 04/08/19 11:05:00 EDT, See Instructions, Disp# 1 each, for use with inhaler, Pharmacy: [facility] Start Date: 04/08/19 Status: Ordered multivitamin Start: 03/09/18 10:40:00 EDT, 1 tab, PO, Daily Start Date: 03/09/18 Status: Ordered ProAir HFA 90 mcg/inh inhalation aerosol Start: 08/15/22 12:12:00 EDT, See Instructions, Disp# 1 each, Refills: 3, INHALE 2 PUFFS BY MOUTH 4TIMES DAILY, Brand Medically Necessary, Pharmacy: [facility] Start Date: 08/15/22 Status: Ordered Vitamin D3 Start: 02/20/22 12:43:00 EDT Start Date: 02/20/22 Status: Ordered Zofran 4 mg oral tablet Start: 06/10/23 13:24:00 EDT, 1 tab, PO, q8h, Disp# 14 tab, Post op nausea/vomiting, Pharmacy: [facility] Start Date: 06/10/23 Status: Ordered Mental Status 11/14/23 Barriers to Learning one year None evide nt Mandatory Health Literacy Documentation Yes Health Literacy Communication Barriers N ever Primary Language Jordanian Problem List Condition Confirmation Course Effective Dates [...] Service Informant Lumbar facet arthropathy Discharge Diagnosis 11/14/23 Procedures Procedure Date Related Diagnosis Body Site [...] Event Display: Ortho Outpt Note Authored Date: [id number] Chief Complaint f/u low back pain. Pain Primary Care Provider DO Mayes Franklin J Subjective Patient is a 73-year-old female who returns today for follow-up. She reports that physical therapy is helping and she feels that she has better core strength but she still continues to have pain inthe back. She is able to do a squat now which she could not do before. She is describing back pain in the lower facet area that will sometimes come aroundto the outer aspects of both legs. Itis exacerbated with standingtwisting and turningsweeping and vacuuming are typically activitiesthat may exacerbate it. She quantifies pain today as a 4- 10 currently 8 out of 10 at the worst 0-10 at the least. Objective Physical Exam Pleasant female seated comfortably her lumbar paraspinal muscles were palpatedshe had point tenderness to palpation of the L5-S1 facetsthese were exacerbated extension rotation bilaterally right and left she had no sciatic notch sensitivityno obvious focal weakness Assessment/Plan 1.Lumbar facet arthropathy Patient is really describing chronic facet arthropathy that has not responded to conservative treatment with physical therapyin which she is improving her core strength. We discussed treatment options and she wishes to proceed with bilateral L5-S1 facet joint injection she is at an ASA level 2 status for the upcoming injections we will follow-up after the injections are done. Electronic Signature on File CC: Raymond Mayse DO [address] [place] [address] Electronically Reviewed/Signed by: Mason Desai MD Author Signature Dt/Tm:11/14/2023 09:50 AM Power Engineer of Orthopaedics & Rehabilitation and Physical Medicine & Rehabilitation SIM[facility] Patient Care team information Care Team Personnel Name: MD Blue Jonathan D Position: Physician - Family Med Member Role: Lifetime Relationship Address: Address: [address] [place] [address] Name: DO Mayes Franklin J Position: Physician - Family Med Member Role: Primary Care Provider Address: Address: [address] [place] [address] [place] Care Team Related Persons Name: SOLOMON GÓMEZ Address: [address] [phone] Name: SOLOMON GÓMEZ Address: [facility] Address: home [address] [place] [phone]
--- OUTSIDE RECORDS SUMMARY | 2024-02-12 07:54 | External Medical Summary | Continuity of Care Document ---
Author Name Unknown Organization [place] [id number] Address [address] [place] [phone] Care Team Providers Care Agriculture Technician Name Role Phone Raymond Mayes Primary Care Physician [phone] [id number] Date(s): 12/02/23 - 12/02/23 [facility] [place] [address] [address] [place] [id number] Encounter Diagnosis Lumbar facet arthropathy(Discharge Diagnosis) - 12/02/23 Discharge Disposition: Home or Self Care Attending Physician: MD Lloyd, Mason Maradiaga Allergies, Adverse Reactions, Alerts Substance Reaction Severity Status erythromycin nausea Active Cats Hives Itchy eyes Active Dust Itchy eyes Active IVP dye Shortness of breath Hives Swelling Severe Active Immunizations Given and Recorded Vaccine Date Status Refusal Reason SARS-CoV-2 (COVID-19) mRNA-vacc - [id number] 09/23/23 Recorded SARS-CoV-2 (COVID-19) mRNA-1273 vaccine 1 [...] Comment: 2021-12-31: Historical information-source unspecified 4Result Comment: [facility] 5Result Comment: 2019-01-04: Historical information-source unspecified [...] food, PRN: as needed for pain, Pharmacy: [facility] Start Date: 06/10/23 Stop Date: 08/09/23 Status: Ordered Flovent HFA 110 mcg/inh MDI Start: 09/01/23 12:48:00 EDT, 2 inh, inhaled, bid, Disp# 36 g, Refills: 3, [facility] Start Date: 09/01/23 Status: Ordered inhaler spacer Start: 04/08/19 11:05:00 EDT, See Instructions, Disp# 1 each, for use with inhaler, Pharmacy: [facility] Start Date: 04/08/19 Status: Ordered multivitamin Start: 03/09/18 10:40:00 EDT, 1 tab, PO, Daily Start Date: 03/09/18 Status: Ordered ProAir HFA 90 mcg/inh inhalation aerosol Start: 08/15/22 12:12:00 EDT, See Instructions, Disp# 1 each, Refills: 3, INHALE 2 PUFFS BY MOUTH 4TIMES DAILY, Brand Medically Necessary, Pharmacy: [facility] Start Date: 08/15/22 Status: Ordered Vitamin D3 Start: 02/20/22 12:43:00 EDT Start Date: 02/20/22 Status: Ordered Mental Status 12/02/23 Barriers to Learning one year None evide nt Mandatory Health Literacy Documentation Yes Health Literacy Communication Barriers N ever Primary Language Lithuanian Problem List Condition Confirmation Course Effective Dates [...] Service Informant Lumbar facet arthropathy Discharge Diagnosis 12/02/23 Procedures Procedure Date Related Diagnosis Body Site [...] chronic inflammation Negative for dysplasia and malignancy and march 2015 24Colonoscopy normal- Repeat in 10 years. Vital Signs Most recent to oldest [Reference Range]: 1 Heart Rate 93 bpm (12/02/23 9:18 AM) Blood Pressure 170/82mmHg (12/02/23 9:18 AM) Social History Social History Type Response Smoking Status Never smoked cigaret monica Sex Female Ortho Outpt Note * MD Lloyd, Mason Maradiaga: PERFORM Event Display: Ortho Outpt Note Authored Date: [id number] Name:CADEN GÓMEZ Patient Number:[id number] :1950 Date of Service:12/02/2023 Preoperative diagnosis: Bilateral L5-B6yrlsj arthropathy Postoperative diagnosis: Same Procedure: Bilateral L5-R3uxpxg joint injections under fluoroscopic guidance Indications: Patient is [id number] femalewho has axial back pain that has not responded to conservative measures she presents today for injectionsprovided with relief. Physical examination patient is without any focal motor or sensory deficits and negative seated straight leg raises, bilateral tenderness of the lumbar sacral facet areas, worse with extension. Consent: Verbal consent was obtained from the patient. Prior to the procedure a timeout was done for safety to identify patient's name date of and approach. Procedure: Patient was maintained in a prone position backside was cleansed with Betadine x3 fluoroscope was used to identify the left L5-S2phmii joint . The overlying skin was anesthetized with 2.5 mL of lidocaine 1% with a 25-gauge 1/2 inch needle. A 3-1/2 inch 22-gauge spinal needle was then directed under fluoroscopic guidance into the joint and they underwent injection after negative aspiration of <0.25ml of Omnipaque 300 to confirm intraarticular uptake then injection after negative aspiration of half a milliliter of the 80 mg/mL concentration of Depo-Medrol and 1/2 mL of 0.25%bupivacaine. Fluoroscope was then used to identify the right L5-E5xvbeg joint . The overlying skin was anesthetized with 2.5 mL of lidocaine 1% with a 25-gauge 1/2 inch needle. A 3- 1/2 inch 22-gauge spinal needle was then directed under fluoroscopic guidance into the joint and they underwent injection after negative aspiration of <0.25ml of Omnipaque 300 to confirm intraarticular uptake then injection after negative aspiration of half a milliliter of the 80 mg/mL concentration of Depo-Medrol and 1/2 mL of 0.25% bupivacaine. Injection was well-tolerated images from the procedure were saved and downloaded to PACS. Disposition: Patient will be discharged home once discards criteria have been met. Electronic Signature on File CC: Raymond Mayes, [address] [facility] [address] [facility] [address] Electronically Reviewed/Signed by: Mason Desai MD Author Signature Dt/Tm:12/02/2023 09:38 AM Medical Office Receptionist Assistant of Orthopaedics & Rehabilitation and Physical Medicine & Rehabilitation [facility] .Outpt Proc * NELLIE Arango, Cassandra Sands: PERFORM Event Display: .Outpt Proc Authored Date: [id number] OUTPATIENT PROCEDURE Name: CADEN GÓMEZ Patient Number: [id number] : 1950 Date of Service: 12/02/2023 OUTPATIENT PROCEDURE NOTE Is patient no Procedure performedBilateralFacet Joint Injection [id number] byDr. Mason Desai MD Resuscitation equipment checkedyes Anticoagulants stoppedN/A Patient has a driveryes xray guidance usedyesConscious sedationnoTime out completedyes consent signedyes Allergies checkedyesIVP dye; Dust; Cats; erythromycin Diabeticno PositionPronePre procedure pain level __3_/10 Skin PrepBetadineSterile drapes usedyes Skin Local Anesthetic: Needle __25___ga ___1.5___in Lidocaile ___1__%___5__ml Other HR: 93 SpO2: 97% BP: 170/82 Block Needle _25_GA_3.5_InchesType - Epidural/spinal needle x2 Procedure medication used Cortical Steroids _80__mg MethylprednisoloneLocal Anesthetic ___0.25__% __1___ml Bupivicaine TimeDrug/Event/RemarkBPHRSPO2 Comments No Omnipaque used d/t allergy. 0929 - L Facet joint complete 0932 - Procedure complete 150/84 87 97% Status:Pain on discharge __0_/10ComplicationsNo Neurologically stableYes DispositionDischarged Home with aftercare instructions given Follow up __6___weeks Electronic Signature on File Electronically Reviewed/Signed by: Cassandra Arango Author Signature Dt/Tm:12/02/2023 09:37 AM Electronically Reviewed/Signed by: Mason Desai MD Cosigner Signature Dt/Tm: 12/02/2023 09:39 AM Medical Office Receptionist Assistant of Orthopaedics & Rehabilitation and Physical Medicine & Rehabilitation [facility] Patient Care team information Care Team Personnel Name: MD Mirza, Romulo Gonzales Position: Physician - Family Med Member Role: Lifetime Relationship Address: Address: [address] [place] [address] Name: DO Mayes Franklin J Position: Physician - Family Med Member Role: Primary Care Provider Address: Address: [address] [place] [address] Care Team Related Persons Name: SOLOMON GÓMEZ Address: home [address] [place] [phone] Name: SOLOMON GÓMEZ Address: [facility] [place] Address: home [address] [place] [phone]
--- NOTE | 2024-02-12 08:49 | Orthopedic Progress Note ---
Date of Service February 12, 2024 Assessment & Plan (1) Closed fracture distal radius and ulna: Plan: Plan to proceed to the operating room today. I answered all of her questions. She would like to discharge home today after surgery. She is interested in a regional block. Surgical site has already been marked and informed consent has been obtained. Admission and Anticipated Discharge Date Admission Date: February 11, 2024 Subjective Patient seen and examined on a.m. rounds. She reports her splint is fitting her well. Pain is adequately controlled. No numbness or tingling in the fingers. She has been n.p.o. since midnight. Physical Exam Physical Exam: Resting comfortably in bed no acute distress. Alert and oriented x 3. Left upper extremity exam reveals her sugar-tong splint to be in place. Mild swelling in the fingers. She is able to fire EPL FPL interossei. Sensory intact to light touch median ulnar and radial nerve distributions. Results & Data Vital Signs (Past 12 Hours) Vital Signs Temp Pulse Resp BP Pulse Ox O2 Del Method 02/12/24 08:26 36.7 C 80 13 153/77 H 96 Room Air
[2024-02-12] MEDS ORDERED: fentaNYL citrate PF 100 MCG/2 ML VIAL ONE (09:26)
[2024-02-12] MEDS ORDERED: MIDAZOLAM HCL 1 MG/ML 2ML VIAL ONE (09:26)
[2024-02-12] MEDS: LACTATED RINGER'S 1,000 ML IV SCH (09:53)
--- NOTE | 2024-02-12 09:58 | Orthopedic Progress Note ---
Date of Service February 12, 2024 Assessment & Plan (1) Closed fracture distal radius and ulna: Plan: Patient was educated regarding today's findings. Conservative care measures were discussed. She is currently NPO. She will remain so today. Anticipate ORIF of the wrist later today by Dr. Bradley. The patient is aware. Continue with ice and elevation for edema control. Keep the splint on and dry. Admission and Anticipated Discharge Date Admission Date: February 11, 2024 Subjective 73-year-old female seen today in her room. She is 1 day status post left distal radius and ulnar fracture. The patient is currently sitting in bed. She is conversive. She admits to some pain in her wrist, but nothing severe. No other areas of discomfort at this time. She has already been out of bed and brushed her teeth. She is currently NPO in anticipation of ORIF of the wrist later today. Review of Systems Review of Systems: Unchanged from yesterday. Physical Exam Physical Exam: General: Well-developed, well-nourished, elderly female, in no acute distress. Laying in bed. Alert and oriented. Looks younger than her stated age. Skin: Warm and dry with good turgor. She does have mild ecchymosis and edema developing at the left fingers. There is a sugar-tong splint in place on the left arm. Musculoskeletal: The patient has intact motor function of her fingers. There is no motion of the wrist or elbow secondary to her splint. Neurologic: Gross sensation is intact across each of the digits by soft touch. Capillary refill is equal for each of the fingers as well. Results & Data Vital Signs (Past 12 Hours) Vital Signs Temp Pulse Resp BP Pulse Ox O2 Del Method 02/12/24 09:43 36.6 C 84 20 157/85 H 97 Room Air 02/12/24 08:26 36.7 C 80 13 153/77 H 96 Room Air (1) Closed fracture distal radius and ulna Encounter type: subsequent encounter Laterality: left
[2024-02-12] MEDS ORDERED: ePHEDrine sulfate 50 MG/ML AMP IV PRN (10:01)
[2024-02-12] MEDS ORDERED: ROPIVACAINE 0.5% 5 MG/ML 30 ML VIAL ONE (10:01)
[2024-02-12] MEDS ORDERED: ATROPINE SULFATE 0.1 MG/ML 10ML SYR IV PRN (10:01)
[2024-02-12] MEDS ORDERED: fentaNYL citrate PF 100 MCG/2 ML VIAL IV PRN (10:01)
[2024-02-12] MEDS ORDERED: ONDANSETRON INJ 2 MG/ML 2 ML VIAL IV PRN ×2 (10:01→13:57)
[2024-02-12] MEDS: ceFAZolin 2000MG 2,000 MG/15 ML SYR IV SCH (11:12)
[2024-02-12] MEDS ORDERED: PHENYLEPHRINE 100MCG/ML 10ML SYR IV ONE (12:05)
[2024-02-12] MEDS ORDERED: LIDOCAINE 2% 2 ML VIAL/AMP(20MG/ML) INFIL ONE (12:05)
[2024-02-12] MEDS ORDERED: ONDANSETRON INJ 2 MG/ML 2 ML VIAL ONE (12:05)
[2024-02-12] MEDS ORDERED: PROPOFOL IV EMULSION 10 MG/ML 20 ML VIAL IV ONE (12:05)
[2024-02-12] MEDS ORDERED: ePHEDrine sulfate 50 MG/5 ML SYR ONE (12:12)
[2024-02-12] MEDS: CHOLECALCIFEROL 25 MCG (1000 UNITS) TAB PO SCH (13:17)
[2024-02-12] MEDS: FLUTICASONE FUROATE 100MCG 14 PUFFS/INHALER INH SCH (13:19)
[2024-02-12] MEDS ORDERED: oxyCODONE/ACETAMINOPHEN 5mg/325mg TAB PO PRN (13:57)
--- NOTE | 2024-02-12 14:08 | Operative Report ---
Post Operative Report Pre & Post Diagnosis Operation Date: 02/12/24 10:40 Pre-Op Diagnosis: Closed fracture distal radius and ulna Post-Op Diagnosis: Closed fracture distal radius and ulna I identified the patient and participated in the time-out.: Yes Procedure Operation Date: 02/12/24 10:40 Actual Procedures p Left Distal Radius and Ulna Fracture Open Reduction Internal Fixation(Left) - Oscar Bradley MD Surgeon Oscar Bradley MD Cosmetic Manager Paula Medina PA-C Estimated Blood Loss 5 Findings Consistent with Post-Op Diagnosis Specimens none Description of Procedure I was present during the entire case assisting with positioning, prepping, draping, wound retraction, wound closure, dressing and splint application. No fellow present. Please see Dr. Bradley procedure note for specifics of the case. I attest to the content of the Intraoperative Record and any orders documented therein. Any exceptions are noted below.
--- NOTE | 2024-02-12 14:12 | Operative Report ---
Post Operative Report Pre & Post Diagnosis Operation Date: 02/12/24 10:40 Pre-Op Diagnosis: Closed fracture distal radius and ulna Post-Op Diagnosis: Closed fracture distal radius and ulna I identified the patient and participated in the time-out.: Yes Procedure Operation Date: 02/12/24 10:40 Actual Procedures Open reduction, internal fixation of Left Distal Radius and Ulna Fractures - Oscar Bradley MD Surgeon Oscar Bradley MD Dress Shoe Inspector NAFISA Medina PA-C. No resident or fellow was available to assist. Estimated Blood Loss 5 Findings Consistent with Post-Op Diagnosis Specimens None Anesthesia Type General Regional Complications none Disposition Disposition: Recovery Room Indications 73-year-old female, fell yesterday onto outstretched left hand sustaining immediate onset of wrist pain and deformity. She came to the ER where x-rays showed displaced comminuted left distal radius fracture as well as a distal ulna fracture just proximal to the DRUJ. Fracture pattern was similar to a both bones forearm fracture instability pattern. Yesterday we performed a closed reduction and sugar-tong splint application. She was admitted overnight for pain control. I had a long discussion with her about the risks and benefits of surgery, alternatives to surgery, and expected outcomes. After reviewing all these she elected to proceed with surgery. All questions were answered. Informed consent was signed. Description of Procedure Patient was identified in the preoperative holding area where her surgical site was marked. She was given a block by anesthesia and brought back to the operating room where she was placed on the operating room table and IV sedation was administered. Her sugar-tong splint was removed. She had actually developed a fracture blister overnight in the region of the distal ulna fracture approximately 2 cm in diameter. She also noticed some swelling in her hand. She was then prepped and draped in the usual sterile fashion. Prior to incision a multidisciplinary timeout was called. All in the room were in agreement. We began by making a volar approach to the distal radius. A 8 cm long incision was made overlying the FCR tendon angling slightly radially at the most distal 1 cm of the incision. I dissected down to subcutaneous tissues to the level of the fascia. Small crossing venous branch was electrocoagulated. Fascia overlying the FCR was incised. The FCR was retracted ulnarly. Subsheath of the FCR was incised. Parona space was entered. Large hematoma was evacuated out from the fracture site. The pronator quadratus was then dissected from radial to ulnar along the proximal fracture margin. At the fracture site there was a small piece of pronator quadratus muscle that was entrapped in the fracture s ite. This was removed and discarded. Fracture hematoma was evacuated with the suction. Inspection of the fracture at this time revealed comminution along the volar cortex proximal fragment with 2 unstable pieces of cortex along the radial and medial columns. She had a dorsal comminuted fragment is noted on her x-rays as well. I was having a little bit of trouble getting a good reduction with the block. Therefore I asked the anesthesiologist to put her under general anesthesia so we can get full paralysis. Once this was complete I was able to obtain an adequate reduction which was held with a pin through the radial styloid into the proximal fragment. Once were satisfied with her distal radius reduction we checked her ulnar reduction. This was near anatomic. I did not feel like this was impeding the radius fracture reduction. Therefore I proceeded to fix a distal radius first then move onto the ulna. A Synthes distal radius locking plate was brought up onto the field. This was a standard width with 3 holes proximally. This was pinned to the distal radius and the position was checked under fluoroscopy. I was happy with the position. Therefore I placed 2 proximal 2.4 mm cortical screws. I then placed 6 locking screws distally all of which were 20 mm in length. I then filled the remaining proximal cortical screw. Excellent fixation was obtained. We checked the po sition of the plate, screw lengths, fracture reduction, all which I was happy with. At this point the tourniquet was let down at approximately 50 minutes. Meticulous hemostasis was ensured. The wound was irrigated out with copious amounts normal saline. The deep dermis was closed with 3 oh-0 Vicryl suture. Skin was closed with 4-0 nylon suture in interrupted horizontal mattress fashion. I then turned my attention towards the distal ulnar ORIF. The limb was then reexsanguinated with an Esmarch bandage. Total tourniquet time for the case was 90 minutes. A 6 cm long incision was made starting from the ulnar styloid and moving proximally over the subcutaneous border of the ulna. I dissected down through subcutaneous tissues. The dorsal sensory branch of the ulnar nerve was identified and retracted distally and protected throughout the case. I then immediately encountered the ulnar fracture. This was quite unstable as expected. Subperiosteal dissection was undertaken to completely expose the fracture edges. I was able to obtain an anatomic reduction with manipulation of the fracture and then stabilize this with a K wire. Next, I opened up a Synthes locking ulnar hook plate. This is a 2.0 mm LCP distal ulna plate 7 holes. I applied this to the ulna. The plate needed to be bent slightly which was done with bending pliers to more anatomically match the patient's anatomy. Once this was complete I secured the plate to the bone using a single cortical screw. The screw slightly displaced the fracture. Therefore I remove the screw and placed a new screw more proximally outside of the zone of injury. Another screw was then placed through the plate and lag fashion to lag the distal fragment to the proximal fragment. This gave us a nice reduction of the fracture. I then placed a locking screw through the most distal hole in unicortical fashion. Excellent fixation was obtained. Fluoroscopy at this time revealed that the plate appeared to slip slightly dis ashley on the styloid, however this appeared to simply be periosteum as the plate was tamped during its application on the ulnar styloid and could not move any further proximally. I therefore sent for elected to fill the remaining screw holes. 3 more locking screws were placed in another cortical screw was placed. This gave us a total of 4 cortices of fixation of the distal fragment to include the lag screw and 6 cortices of fixation in the proximal fragment. the K wire was removed. I inspected the stability of the fracture which I was very happy with. Her range of motion of the wrist was checked and she had good full range of motion. Therefore, the tourniquet was let down. Meticulous hemostasis was ensured. The wound was then carefully closed using 3-0 Vicryl sutures and the deep dermal layer taking great care to avoid the dorsal sensory branch of the ulnar nerve. Skin was closed with 4-0 nylon sutures. Postoperative course: Patient will be admitted back to the floor with likely discharge home this evening. She will be in the splint for the next 2 weeks. 2 weeks from now her splint can remove and sutures can be removed. She will then go into a removable thermoplastic splint and begin wrist range of motion exercises. Aspirin for DVT prophylaxis. I attest to the content of the Intraoperative Record and any orders documented therein. Any exceptions are noted below.
[2024-02-12 14:37] VITALS: RESP 18
--- NOTE | 2024-02-12 14:42 | Anesthesiology Progress Note ---
Date of Service February 12, 2024 Anesthesia Post Procedure Vital Signs Vital Signs: Temp Pulse Pulse Pulse Resp BP Pulse Ox 02/12/24 14:35 97.9 F 75 18 140/81 94 02/12/24 14:25 76 16 152/88 H 97 02/12/24 14:15 77 14 140/96 96 02/12/24 14:05 82 18 136/78 95 02/12/24 13:56 97.7 F 92 H 18 150/98 H 95 02/12/24 09:43 97.9 F 84 20 157/85 H 97 02/12/24 08:26 98.1 F 80 13 153/77 H 96 02/11/24 20:44 97.9 F 73 16 169/82 H 96 02/11/24 18:03 98.1 F 79 16 170/87 H 95 02/11/24 17:10 16 02/11/24 15:33 77 20 95 02/11/24 15:33 78 18 153/92 H 95 02/11/24 14:44 79 18 159/96 H 99 O2 Del Method 02/12/24 14:35 Room Air 02/12/24 14:25 Room Air 02/12/24 14:15 Room Air 02/12/24 14:05 Room Air 02/12/24 13:56 Room Air 02/12/24 09:43 Room Air 02/12/24 08:26 Room Air 02/11/24 20:44 Room Air 02/11/24 18:03 Room Air 02/11/24 17:10 Room Air 02/11/24 15:33 Room Air 02/11/24 15:33 Room Air 02/11/24 14:44 Room Air Pain Intensity Left Wrist: Pain Intensity: 3 Transfer of Care Handoff Completed per policy Notes Mental Status: alert / awake / arousable and participated in evaluation Patient Amnestic to Procedure: Yes Nausea / Vomiting: adequately controlled Pain: adequately controlled Airway Patency, RR, SpO2: stable & adequate BP & HR: stable & adequate Hydration State: stable & adequate Anesthetic Complications: no major complications apparent and Pt Satisfied with anesthetic care
--- NOTE | 2024-02-12 14:44 | Fluoroscopy Report ---
FL wrist LT 2V CLINICAL HISTORY: LEFT WRIST COMPARISON STUDY: Left wrist radiographs February 11, 2024. FLUOROSCOPY TIME: 35 seconds. Ka, r: 0.89 mGy FLUOROSCOPIC IMAGES: 5 FINDINGS: Fluoroscopy was provided during open reduction and internal fixation of the distal left rad ial and ulnar fractures. Fracture alignment has significantly improved and appears near anatomic. Ronaldo dware is intact. No unexpected radiopaque foreign bodies. IMPRESSION: Fluoroscopy provided during open reduction and internal fixation of the distal left radi al and ulnar fractures. ACT 112: Negative or not required by law. Electronically signed by: Davy Abad M.D. 02/12/2024 2:43 PM
[2024-02-12 16:18] VITALS: BP 139/69; PULSE 89; TEMP 98.4; O2SAT 98
[2024-02-13] MEDS ORDERED: ASPIRIN 81 MG ECTAB PO SCH (09:00)
[2024-02-13] MEDS ORDERED: MULTIVITAMIN TAB PO SCH (09:00)
--- NOTE | 2024-02-13 16:28 | Discharge Summary ---
Date of Service February 13, 2024 Admission HPI Per Admitting Provider History of Present Illness Neli is a 73-year-old female who presented to the emergency department today with left wrist pain after sustaining a fall and tripping over a rock. She is a known patient of Dr. Bradley. X-rays were done that show distal radius and ulna fracture. We were consulted for further management. Patient denies any previous injuries to this wrist. She did previously fracture her right wrist but surgery was not necessary. She has had her knee and her hip replaced by Dr. Bradley. Her pain is currently controlled. Denies any numbness or tingling. She is relatively healthy. She reports asthma is well-controlled with Flovent daily and albuterol. She takes a baby aspirin daily. She previously saw licensed massage therapist for suspected stroke but has since been cleared. She has rate related bundle branch block if her heart rate gets above 150 but she says that has not happened to her in quite some time. Denies any kidney or diabetes. No history of MRSA infection or any allergies to metal. Admission Exam Per Admitting Provider Physical Exam: General: Patient is laying in hospital bed awake alert and oriented, calm and comfortable Cardiovascular: Positive S1, positive S2, regular rate and rhythm Lung: Lungs are clear to auscultation bilaterally in upper and lower lung hines. No wheezing, rales or rhonchi. Left wrist: Prereduction - obvious deformity is noted. Expected swelling and bruising. There is no breaks in the skin. Patient is able to wiggle her fingers. She is able to make a thumbs up. Tendons are intact. She has sensation distally to light touch. 2+ distal radial pulses present. Postreduction sugar-tong plaster splint was applied. Patient reported comfort after reduction and splint application. She is able to better move all 5 of her digits. Neurovascular status unchanged after reduction and splint application. She is sensation intact distally light touch. Capillary refill less than 2 seconds all 5 digits skin is warm and pink. Principal Diagnosis Left distal ulna and radius fracture Discharge Exam Resting comfortably in bed no acute distress. Alert and oriented x 3. Left upper extremity exam reveals her sugar-tong splint to be in place. Mild swelling in the fingers. She is able to fire EPL FPL interossei. Sensory intact to light touch median ulnar and radial nerve distributions. Discharge Data Allergies Allergy/AdvReac Type Severity Reaction Status Date / Time cat dander Allergy Unknown Hives, Verified 06/19/23 05:34 itching Iodinated Contrast Media Allergy Unknown Hives, Verified 06/19/23 05:34 anaphylaxis doxycycline AdvReac Unknown GI Verified 06/19/23 05:34 flu-like symptoms erythromycin base AdvReac Unknown Upset Verified 06/19/23 05:34 stomach Consultations 02/11/24 14:39 ED Decision to Admit Stat Procedures Performed Operation Date: 02/12/24 10:40 Actual Procedures p Left Distal Radius and Ulna Fracture Open Reduction Internal Fixation(Left) - Oscar Bradley MD Ordered Studies 02/12/24 10:00 US - OR guided needle placemen Routine 02/12/24 11:15 FL wrist LT 2V Routine Hospital Course (1) Closed fracture distal radius and ulna: Postoperative course: Patient will be admitted back to the floor with likely discharge home this evening. She will be in the splint for the next 2 weeks. 2 weeks from now her splint can remove and sutures can be removed. She will then go into a removable thermoplastic splint and begin wrist range of motion exercises. Aspirin for DVT prophylaxis. Total Time Total Time Spent Total Time Spent (In Minutes): 20 mins Discharge Plan Discharge Items Patient Disposition: Home - Self-Care Reason For Visit: WRIST FRACTURE Discharge Diagnosis: Left wrist fracture Condition on Discharge: Good Activity: As commented below Lifting: Wait until after follow-up appointment Bathing: Keep incision dry Bathing Comment: May shower tomorrow Sexual Activity: Wait until after follow-up appointment Exercise/Sports: Wait until after follow-up appointment Driving/Machine Use: No driving until cleared by photogrammetric compilation specialist Weightbearing: Left non-weightbearing Weightbearing Comment: with sling Non-emergency contact: Surgeon Call non-emergency contact if: you have any medication questions, your pain is not controlled, your temperature is above 101.5, your wound has increased drainage and your wound pain has increased Follow-up/Referrals: Raymond Mayes DO [Primary Care Provider] - 02/17/24 1:45 pm (w/ Dr. Harrison ) Diet: Regular Addtl Attending Provider Instructions: Post-operative Instructions Dear Patient and Family/Friends, Before you are discharged from the hospital, it is important to know what to expect when you get home after surgery. To that end, we have created this sheet of discharge instructions which covers many commonly asked questions. Make sure you go through this sheet in its entirety with your nurse before you are discharged. Please note that we will go over the specifics of your surgery and recovery when you return for your first post-operative visit. Sincerely, Dr. Bradley Pain Expect to be in a fair amount of pain after surgery. Remember, our goal is not to eliminate your pain, but to make it tolerable. It is a good idea to stay ahead of your pain by taking the medications you were prescribed once you get home. Typically, the pain starts improving 3-7 days after surgery. You should start weaning off the narcotic pain medication (oxycodone, hydrocodone, hydromorphone, morphine) as soon as your pain improves. Please call our office if your pain is not adequately controlled. Ice Ice your operative site at least 5 times a day for 15-30 minutes at a time. Make sure you have a thin cloth between the ice or cooling unit and your skin to prevent montez bite. This is especially important if you received a nerve block. Continue icing your operative site for the first 5-7 days after surgery, then as needed. Diet/Nausea/Vomiting Start by drinking clear liquids and eating crackers. If you can tolerate this, then you may resume your normal diet. If you feel nauseated or vomit, take Zofran/ondansetron (if prescribed). Please call our office if you have intractable nausea or vomiting, or, if after hours, you may go to the Emergency Room for help. Constipation Constipation is a common side effect of narcotic pain medication. If you have not had a bowel movement within 2 days after surgery, we recommend purchasing an over the counter laxative such as Milk of Magnesia, Dulcolax, or Miralax from a local pharmacy, and taking it as instructed. Call our clinic if any questions. Slings and Braces If you were placed in a sling or brace, it must be worn at all times, including sleep. You may remove your sling or brace for physical therapy, home exercises, and showering. The length of time you will be in your brace and range of motion restrictions depends on what surgery you had; these details will be reviewed at your first post-operative appointment. Nerve block The anesthesia team sometimes places a nerve block to help with post-operative pain control. This results in significant numbness and inability to move the extremity. The nerve block usually wears off in 8-12 hours, but sometimes can last up to 24 hours. Please call our office if you are still unable to move your extremity after 24 hours, unless you received a pain pump to take home. Nerve blocks typically wear off quickly, so start taking pain medication as soon as you start feeling soreness near your surgical site. Weight bearing and Range of Motion. Do not bear any weight through your operative extremity immediately after surgery. If you had upper extremity surgery, do not lift anything with that arm. If you are in a knee brace, keep it locked in place until your follow-up. We will discuss your weight bearing, range of motion, and lifting restrictions in detail at your first post-operative appointment. Continuous Passive Motion (CPM) Machine If you were prescribed a CPM machine, it will start after your first post- operative appointment, at which time we will give you instructions on the range of motion settings and duration of treatment Physical therapy You will be given a prescription for physical therapy or occupational therapy at your first post-operative appointment. Typically, patients start therapy within 1 week of surgery Wound care and showering We will inspect your wound at your first post-operative visit, and may do a dressing change at that time. Most patients will be in a water-proof dressing that is removed 14 days after surgery. It is normal to see some dried blood on the dressing. Do not remove your dressing, paper strips or sutures yourself unless you are given permission. Showering is allowed the day after surgery. Do not scrub or remove any dressings. The wound should not be submerged underwater (i.e. in a bathtub or pool) until 4 weeks after surgery FLOR stockings If you were given white stockings, these are to be worn at all times except to shower (on both legs) for the first 2 weeks after surgery. Driving You may not drive while taking narcotic pain medication or while in a cast, splint, sling or brace. You, the patient, need to make the final determination about when you are safe to drive, however, the earliest you may consider driving after surgery is below: Hand/Wrist/Elbow Surgery: 3 days Shoulder Surgery: 2 weeks Hip,/Knee/Ankle Surgery: 4 weeks Fracture repair: 6 weeks Return to Work Your return to work depends on what surgery was done and what type of work you do. Please bring any paperwork your employer needs completed to your first post-operative visit. Also, bring a description of your job duties, as this helps us to understand what risks you may face at work. Travel Avoid long distance travel (greater than 1 hour) in airplanes and cars for the first 6 weeks after surgery. If you must travel, you need to have a Doppler ultrasound done before you travel to rule out a blood clot in your legs. Follow-up You should have a follow-up appointment already scheduled 1-2 days after surgery. If not, please contact our office to make this appointment before you leave the hospital. When to call the office It is normal to have swelling and bruising in the limb that was operated on. This will improve with time. It is also normal to have fevers for the first 2 days after surgery. Reasons you should call your doctor include: Uncontrolled pain; Nausea, vomiting, or constipation that does not improve with medication; Fevers over 101.5, chills, sweats; Drainage or bleeding from the wound; Foul odor; Spreading areas of redness; Any other concerns Pending Studies at Discharge: No Stand-Alone Forms: My [facility], Smoking Cessation Medications and DC Order Prescriptions: New oxycodone-acetaminophen [Percocet] 5-325 mg Tablet 1 - 2 tab PO Q4H PRN (Reason: pain) Qty: 28 0RF Continued albuterol sulfate [ProAir HFA] 90 mcg/actuation HFA aerosol inhaler 2 puff INHALATION QID PRN (Reason: Shortness Of Breath Or Wheezing) Patient Comments: never really have to use fluticasone propionate [Flovent HFA] 110 mcg/actuation HFA aerosol inhaler 1 puff INHALATION BID aspirin 81 mg Tablet 81 mg PO DAILY Patient Comments: supposed to be every day/frequently forget. causes bruising. cholecalciferol (vitamin D3) [Vitamin D3] 50 mcg (2,000 unit) Capsule 25 mcg PO DAILY Patient Comments: sometimes multivitamin Tablet 1 tab PO QAM Discharge Orders: Discharge Order (Routine); Ordered 02/12/24 Ordered By: Samson Norwood/Other Patient Handouts: DVT Post Op Prevention Admission Data Admit Date/Time: 02/11/24 15:03 Attending Provider: Oscar Bradley Admit Provider: Oscar Bradley Primary Care Provider: Raymond Mayes Other Providers: Oscar Bradley Other Interventions: Discharge Summary Assessment (RN) Last Done: 02/12/24 16:58
--- NOTE | 2024-02-14 06:21 | Electrocardiogram Report ---
Test Reason : Blood Pressure : / mmHG Vent. Rate : 073 BPM Atrial Rate : 073 BPM P-R Int : 174 ms QRS Dur : 074 ms QT Int : 376 ms P-R-T Axes : 035 005 050 degrees QTc Int : 414 ms Normal sinus rhythm Normal ECG When compared with ECG of 10-JUN-2023 14:46, No significant change was found Confirmed by Pollo Garduno ([id number]) on 02/14/2024 6:21:17 AM Referred By: REFERRED SELF Confirmed By:Pollo Garduno
== END 2024-02-12 18:04 | disposition home or self-care (01) ==
LOC: ED 11:36 → 3W 11:36
DX: I44.7 Left bundle-branch block, unspecified; Z79.82 Long term (current) use of aspirin; Y93.01 Activity, walking, marching and hiking; Y92.821 Forest as the place of occurrence of the external cause; I25.10 Atherosclerotic heart disease of native coronary artery without angina pectoris; S52.502A Unspecified fracture of the lower end of left radius, initial encounter for closed fracture; Z79.51 Long term (current) use of inhaled steroids; Z87.81 Personal history of (healed) traumatic fracture; Z96.642 Presence of left artificial hip joint; Z91.041 Radiographic dye allergy status; S52.602A Unspecified fracture of lower end of left ulna, initial encounter for closed fracture; J45.909 Unspecified asthma, uncomplicated; W01.198A Fall on same level from slipping, tripping and stumbling with subsequent striking against other object, initial encounter; Z88.1 Allergy status to other antibiotic agents

== ENCOUNTER 2025-04-07 08:44 | Observation (INO) ==
--- NOTE | 2025-03-25 14:11 | PAT Medication Instructions ---
Medication Instructions Date of Service March 25, 2025 Home Medications albuterol sulfate 90 mcg/actuation aerosol inhaler (ProAir HFA) 2 puff inhalation QID PRN fluticasone propionate 110 mcg/actuation HFA aerosol inhaler (Flovent HFA) 1 puff inhalation BID aspirin 81 mg tablet 81 mg PO DAILY cholecalciferol (vitamin D3) 50 mcg (2,000 unit) capsule (Vitamin D3) 25 mcg PO DAILY multivitamin 1 tab PO QAM ASK your prescriber and surgeon aspirin 81 mg tablet 81 mg PO DAILY DO NOT take the morning of surgery cholecalciferol (vitamin D3) 50 mcg (2,000 unit) capsule (Vitamin D3) 25 mcg PO DAILY multivitamin 1 tab PO QAM Take morning of surgery With a small sip of water, OTHERWISE NOTHING TO EAT OR DRINK AFTER MIDNIGHT: albuterol sulfate 90 mcg/actuation aerosol inhaler (ProAir HFA) 2 puff inhalation QID PRN(use if needed; please bring with you to hospital day of surgery if possible) fluticasone propionate 110 mcg/actuation HFA aerosol inhaler (Flovent HFA) 1 puff inhalation BID Take evening before surgery lbuterol sulfate 90 mcg/actuation aerosol inhaler (ProAir HFA) 2 puff inhalation QID PRN(if needed) fluticasone propionate 110 mcg/actuation HFA aerosol inhaler (Flovent HFA) 1 puff inhalation BID Other Notes If you have any questions please call us at [phone] or [phone] or [phone] or [phone]
--- NOTE | 2025-03-30 13:59 | Anesthesiology Consultation ---
Date of Service March 30, 2025 Assessment & Plan (1) Encounter for pre-operative examination: - awaiting patient reported 03/30/25 PCP clearance note, Dr. Raymond Mayes. - cardiology clearance 03/21/25: "...denies any chest pain or chest pressure...no shortness of breath...reluctant to consider blood pressure medicine given that it might make her lightheaded...rate related left BBB with exercise at a HR of 150 bpm...negative stress echo for ischemia...stroke in 2015 with a negative carotid ultrasound...cardiac catheterization 08/2019 with a mid-LAD bridge, but no significant epicardial CAD...doing well...low risk for orthopedic surgery...risk of cardiac complications is less than 1% and this includes heart attack, dying from cardiac causes, heart failure and arrhythmias...blood pressure is borderline elevated. If it were to continue to elevate I would consider low-dose losartan 25 mg to start...will see her back in a year with an echo..." Chart Review Chart Review: Pending: Refer to Additional Notes / Consult section and Patient seen in Pre Admission Testing Teaching & Discussion Pre-Anesthesia Teaching/Discussion Notes: Instructed NPO after midnight before surgery, except medications with 15 cc of water. Medication instructions provided according to the PAT guidelines. History Surgery Operation Date: 04/07/25 10:40 Proposed Procedures p Left Total Knee Arthroplasty - Oscar Bradley MD Height/Weight Height: 5 ft 8 in Weight: 76.2 kg Allergies Allergy/AdvReac Type Severity Reaction Status Date / Time cat dander Allergy Unknown Hives, Verified 03/25/25 09:58 itching Iodinated Contrast Media Allergy Unknown Hives, Verified 03/25/25 09:58 anaphylaxis doxycycline AdvReac Unknown GI Verified 03/25/25 09:58 flu-like symptoms erythromycin base AdvReac Unknown Upset Verified 03/25/25 09:58 stomach Medications Home Medications Medication Instructions Recorded Confirmed Last Taken albuterol sulfate 90 mcg/actuation 2 puff inhalation QID PRN 12/12/21 03/25/25 Unknown aerosol inhaler (ProAir HFA) Shortness Of Breath Or Wheezing fluticasone propionate 110 1 puff inhalation BID 12/12/21 03/25/25 07/17/24 mcg/actuation HFA aerosol inhaler (Flovent HFA) aspirin 81 mg tablet 81 mg PO DAILY 05/30/23 03/25/25 06/16/24 cholecalciferol (vitamin D3) 50 25 mcg PO DAILY 05/30/23 03/25/25 06/16/24 mcg (2,000 unit) capsule (Vitamin D3) multivitamin 1 tab PO QAM 02/11/24 03/25/25 06/16/24 Past Medical History Medical History Acid reflux controlled, stable per pt Age related osteoporosis Pre-stage Asthma well controlled w/ daily Flovent use; last albuterol inhaler use several months ago Borderline high blood pressure diet and exercise controlled CAD (coronary artery disease) Mild non-obstructive CAD per 2019 cath Cerebrovascular disease Minimal nonspecific chronic small vessel ischemic change per 2018 brain MRI. Unremarkable 10/[address] Remote hx of possible stroke several years ago (per patient, further workup/evaluation determined that she did not have definitive stroke) History of basal cell carcinoma (BCC) of skin s/p excision (years ago) Rate-related bundle branch block Reports LBBB with HR > 150 Patient denies h/o seizures, heart attack, heart failure, DM, HTN, blood clots/DVTs or blood transfusions. Exercise / Class Metabolic Activity II 4-5 Yardwork/Stairs/Walk up hill (denies chest discomfort or shortness of breath with one flight of stairs) Past Family History Family History Other Family history non-contributory Past Surgical History Surgical History History of cardiac cath 2019- no stents History of cataract surgery R/L History of colonoscopy History of endoscopy History of open reduction and internal fixation (ORIF) procedure (01/2024) humerus right History of right knee joint replacement History of surgery fatty tumor removed right thigh History of surgery on right wrist S/P total hip arthroplasty left Past Anesthesia History No Hx of Anesthesia Complications and No Family Hx of Anesthesia Complications History of PONV No Hx of PONV and No Hx of Motion Sickness Social History Smoking Status: Never smoker Do You Dip or Chew Tobacco: No Hx Alcohol Use: Yes (nothing in past 6 mos) Alcohol type: beer, wine and hard liquor alcohol intake frequency: holidays/special occasions only Hx Substance Use: No substance use type: does not use Review of Systems Patient denies chest pain, shortness of breath, dyspnea on exertion, snoring, witnessed apneas, fever, chills, cough, wheezing, or palpitations. Physical Exam Vital Signs Vitals BP 143/82 P 71 TEMP 97.8 SP02 97% on RA RESP 18 Physical Patient resting comfortably in chair in no acute distress, alert and oriented, responding appropriately throughout visit Full cervical extension range of motion without pain TMD 3.5 finger breadths Mallampati Score 2 Dentition: several crowns, denies chipped or loose teeth, caps, implants or bridges Lungs: normal respiratory effort. Good air movement, clear throughout to auscultation, no adventitious breath sounds Cardiac: regular rate and rhythm, no murmurs noted Carotid arteries: negative bruit bilat Lab Results Anesthesia Preop Results Results Anesthesia Widget: WBC 4.13 K/ul (4.8-10.8) L 03/30/25 Hgb 12.9 g/dl (12.0-16.0) 03/30/25 Hct 37.8 % (37.0-47.0) 03/30/25 Plt 233 K/uL (130-400) 03/30/25 Na 138 mmol/L (136-145) 03/30/25 K 3.6 mmol/L (3.5-5.1) 03/30/25 Cl 104 mmol/L (98-107) 03/30/25 CO2 29 mmol/L (21-32) 03/30/25 BUN 19 mg/dl (6-23) 03/30/25 Creat 1.02 mg/dl (0.6-1.2) 03/30/25 Glucose Level 135 mg/dl (70-99(Fasting)) H 03/30/25 Urine Color Yellow 03/30/25 Urine Appearance Clear (Clear) 03/30/25 Urine pH 5.5 (4.5-7.5) 03/30/25 Urine Specific [place] 1.007 (1.000-1.030) 03/30/25 Urine Protein Negative (Negative) 03/30/25 Urine Glucose (UA) Negative (Negative) 03/30/25 Urine Ketones Negative (Negative) 03/30/25 Urine Blood Negative (Negative) 03/30/25 Urine Nitrite Negative (Negative) 03/30/25 Urine Bilirubin Negative (Negative) 03/30/25 Urine Urobilinogen Negative (Negative) 03/30/25 Urine Leukocyte Esterase Negative (Negative) 03/30/25 Testing Electrocardiogram Date: 03/21/25 NSR, rate 60 bpm Echocardiogram Date: 02/18/22 EF 60-65% No regional wall motion abnormalities No LVH Grade I diastolic dysfunction No significant valvular pathology Cardiac Catheterization Date: 09/22/19 Left main: no evidence of disease LAD: mildly diseased Cx: mildly diseased RCA: mildly diseased Mild non-obstructive CAD with mid-LAD myocardial bridge Other Testing Carotid doppler 06/16/24 1. There is no sonographic evidence of hemodynamically significant stenosis in the right or left carotid arterial system. 2. Antegrade flow is shown in the vertebral arteries.
--- NOTE | 2025-03-31 11:34 | History & Physical Report ---
Date of Service March 31, 2025 Assessment & Plan (1) Osteoarthritis of left knee: Plan: PRE-OP Diagnosis: Left knee osteoarthritis Planned Procedure: Left total knee arthroplasty Plan: Patient is scheduled to undergo this procedure at the [facility] following the outpatient joint pathway on April 07, [address] Bradley. Risks and complications of the procedure such as: Infection, bleeding, pain, scarring, nerve blood vessel damage, weakness, wound problems, stiffness, incomplete relief of symptoms, hardware failure, hardware loosening, wear, fracture, tendon or ligament injury, blood clots, embolism, heart attack, stroke and were explained to the patient and her visit today. Informed consent form procedure was obtained. 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 She is scheduled to see her primary care provider on March 30 for preoperative medical clearance. Patient states she is scheduled to meet anesthesia later today. While there she will obtain a CBC with differential, complete metabolic panel, PT/INR, blood type and screen, urinalysis, urine culture and sensitivity, and a nasal culture for MRSA. Her EKG is up-to-date from her recent visit with cardiology. During today's visit we reviewed the total knee packet. I answered all questions that the patient had in regards to her surgery. I provided her with paperwork to obtain a handicap placard for her vehicle. Patient will need a walker, raised toilet seat and shower chair prior to surgery. I discussed antibiotic use following joint replacement surgery before dental procedures. We talked about joint venture classes offered by [facility] that are done via zoom. We discussed the outpatient joint pathway and how it works. During today's visit the PDMP was checked and no red flags were raised that would prevent us from prescribing the patient an opioid analgesic for postoperative pain control. Prescriptions for oxycodone, diclofenac sodium, Zofran and Keflex were sent to the patient's pharmacy for to use following surgery. I also discussed with the patient that she will be on a baby aspirin twice daily for the first 30 days postoperatively for blood clot prevention. I also recommended that she purchase a stool softener to help prevent constipation from narcotic use. Patient plans on doing in-home physical therapy for the first 2 weeks postoperatively. I will provide this order to our nurse manager advertising and have this service set up. Patient is scheduled to see me for 2-week postoperative follow-up visit on April 20. This chart was completed utilizing [employer] voice recognition software. Grammatical errors, random word insertions, pronoun errors, and in complete sentences are an occasional consequence of the system. Any questions or concerns about the content, text, or information contained within the body of this dictation should be addressed directly to the physician for clarification. History of Present Illness Chief Complaint: Chief Complaint: Left knee pain Primary Care Provider: Raymond Mayes DO History of Present Illness (including history relevant to procedure): This 75-year-old female presents to the clinic today for her preoperative history and physical. Patient states that over the past several months she has been experiencing medial and lateral left knee pain with a sense of instability and weakness she states the symptoms are very similar to those that she experienced in her right knee before undergoing total knee arthroplasty back in May 2023. Patient states that she has been doing an exercise regimen for strengthening of her left lower extremity. She states that occasionally she uses anti- inflammatory agents, however her symptoms still persist. Due to the positive outcome of her right total knee arthroplasty she is electing to proceed with a left knee replacement. Review Of Systems: A 12 point review of systems is performed and is unremarkable except for those things stated in the HPI past medical history. Past Medical History: Problems: Borderline systolic HTN Encounter for follow-up examination after completed treatment for cancer Lumbar radiculopathy Pancreatic cyst Lumbar facet arthropathy Gluteal tendinitis, left hip Low back pain Seborrheic keratoses Hand dermatitis Actinic keratoses Changing skin lesion History of squamous cell carcinoma Herpes simplex Rate-related bundle branch block Dizziness Oral lichen planus Bilateral primary osteoarthritis of knee Bilateral primary osteoarthritis of hip Mild mitral valve prolapse ASTHMA FAMILY HISTORY OF OTHER SPECIFIED MALIGNANT NEOPLASM Senile hyperkeratosis Alopecia areata Osteopenia of both hips Procedure History Procedure Procedure Date Comments Tubal ligation wisdom teeth colonoscopy EGD - esophagogastroduodenoscopy 10/20/2024 - Followup with your referring doctor - A) Duodenum, biopsy:No significant pathology.B) Gastric antrum, biopsy:Edema, congestion, and foveolar hyperplasia compatible with reactive gastropathy.COMMENT:No Helicobacter pylori organisms are identified on an immunohistochemical stain for H. pylori. - - Normal esophagus. - Normal stomach. Biopsied. - Normal examined duodenum. Biopsied. Wrist 2023 - Broken and required repair. January 2024 Mammogram 07/18/2023 - Impression: There is no mammographic evidence of malignancy. A 1 year screening mammogram is recommended CT of brain wo IV contrast 10/30/2022 - Impression: There is no hemorrhage, mass effect, or evidence, or evidence of acute territorial ischemia by CT criteria. Shave biopsy and cauterization of skin 07/04/2022 Mammogram 06/25/2022 - Impression: There is no mammographic evidence of malignancy. A 1 year screening mammogram is recommended. X-ray of left femur, hip w pelvic 04/03/2022 - 1. No fracture or dislocation within the pelvis, hips, or left femur.2. Left total hip arthroplasty. The hardware appears intact. DEXA of hip and spine 03/21/2022 - Impression:Ap spine L1-L4 T-score -1.3Femur neck T-score -1.7Femur total -1.3Z-score 0.1 Shave biopsy and cauterization of skin 01/30/2022 Left hip 12/13/2021 - replaced Ultrasound 09/20/2021 - IMPRESSION:1. No hydronephhrosis2. Multiple bilateral renal cysts3. 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 Uncomplicated right radial arterial access. Gynecologica lPathology report 10/12/2018 - LMP: PostmenoClinical History: NoneDiagnosis: Negative for intraepithelial lesion or malignancy. Chest x-ray 08/26/2018 - No active disease in the chest MRI (Magnetic resonance imaging) of brain 03/12/2018 - impression: 1 No acute intracranial pathology. No abnormal enhancement 2. Nonspecific subcortical white matter foci of signl abnormallity. These may represent chronic small vessel ischemic changes the appearance is not specific for this entity Right x-ray of humerus 10/02/2017 - 2nd imaging report Impression: Improved alignment status post ORIF of the proximal right Humerus - impression;postoperative images from open reduction and internal fixation of a right humeral fracture REPAIR OF HUMERUS- right 10/02/2017 - Tolerated well. Mammogram 08/06/2017 - There is no mammographic evidence of malignancy. A one year screening is recommended. Nail avulsion of toe 06/19/2017 - and biopsy MRI,of the orbits with and without contrast 03/12/2017 MRI,,brain 03/12/2017 Excision 12/27/2016 - excision of 2cm lymph node from the right thigh. Surgery 12/2016 Plain X-ray lumbar spine normal 07/29/2016 - Moderate degenerative change of the mid to lower lumbar spine. No active process Imaging 11/07/2015 - chest Mammogram 07/27/2015 Procedure 07/04/2015 - Bx: Oral cavity right buccal mucosa, biopsy:Fragments of benign squamous mucosa with associated mild acute and chronic inflammationNegative for dysplasia and malignancy Cataract extraction 2014 - march and march 2015 Colonoscopy 08/04/2013 - Colonoscopy normal- Repeat in 10 years. DEXA - Dual energy X-ray photon absorptiometry 07/02/2012 Allergies and Sensitivities: Dust(Itchy eyes) Cats(Itchy eyes) Cats(Hives) IVP dye(Swelling) IVP dye(Hives) IVP dye(Shortness of breath) erythromycin(nausea) Current Home Meds: (Last Updated 03/30 12:11) albuterol (ProAir HFA 90 mcg/inh inhalation aerosol) INHALE 2 PUFFS BY MOUTH 4 TIMES DAILY aspirin (aspirin 81 mg oral delayed release tablet) 81 mg PO Daily cephalexin (cephalexin 500 mg oral capsule) 500 mg PO tid Post op infection prophylaxis cholecalciferol (Vitamin D3) diclofenac (diclofenac sodium 75 mg oral delayed release tablet) 75 mg PO bid PRN: as needed for pain with food fluticasone (fluticasone CFC free 110 mcg/inh MDI) 2 puff inhaled bid ondansetron (Zofran 4 mg oral tablet) 4 mg PO q8h PRN: as needed for nausea/vomiting Post op nausea/vomiting oxyCODONE (oxyCODONE 5 mg oral tablet) 5 mg PO q4h PRN: as needed for pain Post op pain controlMax 6/day Allergies Allergy/AdvReac Type Severity Reaction Status Date / Time cat dander Allergy Unknown Hives, Verified 03/25/25 09:58 itching Iodinated Contrast Media Allergy Unknown Hives, Verified 03/25/25 09:58 anaphylaxis doxycycline AdvReac Unknown GI Verified 03/25/25 09:58 flu-like symptoms erythromycin base AdvReac Unknown Upset Verified 03/25/25 09:58 stomach Home Medications Medication Instructions Recorded Confirmed Type albuterol sulfate 90 mcg/actuation 2 puff inhalation QID PRN 12/12/21 03/25/25 History aerosol inhaler (ProAir HFA) Shortness Of Breath Or Wheezing fluticasone propionate 110 1 puff inhalation BID 12/12/21 03/25/25 History mcg/actuation HFA aerosol inhaler (Flovent HFA) aspirin 81 mg tablet 81 mg PO DAILY 05/30/23 03/25/25 History cholecalciferol (vitamin D3) 50 25 mcg PO DAILY 05/30/23 03/25/25 History mcg (2,000 unit) capsule (Vitamin D3) multivitamin 1 tab PO QAM 02/11/24 03/25/25 History Past Med/Surg History Problem List (Updated 03/31/25 @ 11:33 by Samson Medina PA-C) Osteoarthritis of left knee Encounter for pre-operative examination Vitamin D deficiency Medical History Cerebrovascular disease Minimal nonspecific chronic small vessel ischemic change per 2018 brain MRI. Unremarkable 10/[address] Remote hx of possible stroke several years ago (per patient, further workup/evaluation determined that she did not have definitive stroke) CAD (coronary artery disease) Mild non-obstructive CAD per 2019 cath Age related osteoporosis Pre-stage Acid reflux controlled, stable per pt History of basal cell carcinoma (BCC) of skin s/p excision (years ago) Borderline high blood pressure diet and exercise controlled Rate-related bundle branch block Reports LBBB with HR > 150 Asthma well controlled w/ daily Flovent use; last albuterol inhaler use several months ago Surgical History History of surgery on right wrist History of right knee joint replacement History of open reduction and internal fixation (ORIF) procedure (01/2024) humerus right History of cardiac cath 2019- no stents History of surgery fatty tumor removed right thigh History of cataract surgery R/L History of endoscopy History of colonoscopy S/P total hip arthroplasty left Family History Other Family history non-contributory Social History Smoking Status: Never smoker Second Hand Exposure: No; Do You Dip or Chew Tobacco: No; Hx Alcohol Use: Yes (nothing in past 6 mos) Alcohol type: beer, wine and hard liquor Hx Substance Use: No Preferred Language: Kyrgyz Communication Ability: Effective Visual Impairment: No Limitations Case Manager Required: No Beliefs That Will Affect Care: None marital status: Current Living Situation: Spouse How many Children do You have: 3 Feels Safe at Home: Yes Assistive Devices: Glasses Review of Systems All systems reviewed & are unremarkable except as noted in Subjective Physical Exam Physical Exam: Physical Exam: (relevant to the procedure, including heart and lung evaluation) General: Alert and oriented x 3 with proper grooming and hygiene Eyes: Pupils are equal and reactive to light with accommodation. Extraocular movements are intact Throat: Posterior oropharynx clear with absence of edema, erythema or exudate. Dentition is appropriate Cardiac: Regular rate and rhythm with no murmurs or gallops appreciated Lungs: Clear to auscultation throughout with no wheezing, rales or rhonchi Abdomen: Nonobese, nondistended, nontender with normal active bowel sounds Extremities: Left knee; active range of motion is from 4 degrees of extension to 125 degrees of flexion. She has a slight valgus malalignment. She experiences medial and lateral joint line tenderness when the knee is palpated in the flexed position. I was able to slightly manipulate her patella with palpable crepitation. She had no laxity with varus or valgus stressing. AP drawer sign Raoul test are negative. She is neurovascularly intact in the left lower extremity. Neuro: Cranial nerves II through XII are intact no motor or sensory deficit Skin: Normal in appearance no open skin areas or discharge Results & Data Diagnostic Findings Studies (relevant to the procedure): 3views of theleft kneeobtained show bone on bone arthritis in the medial compartment of the knee
[~2025-04-07 08:44] MED LIST changes: -ASPI81TA28 PO; +BUPIVACAINE 0.25% PF 30 ML VIAL ONE; +BUPIVACAINE 0.5 % 5 MG/1 ML PF 10ML VIAL ONE; +DEXAMETHASONE SOD INJ 4 MG/ML VIAL ONE; +EPINEPHrine INJ 1 MG/ML AMP ONE; -FLUT1AER5 INH; -GADAVIST IV PRN; -GLUC1CAP35 PO; -MULT-513 PO; -VNTHFA/IN INH
[2025-04-07] MEDS: LR 500ML BOLUS, THEN 15ML/HR IV SCH (09:20)
[2025-04-07] MEDS: LR 60ML/HR IV SCH (09:20)
[2025-04-07] MEDS: ACETAMINOPHEN 500 MG TAB PO SCH ×2 (09:21→21:57)
[2025-04-07] MEDS: FAMOTIDINE 20 MG TAB PO SCH (09:22)
[2025-04-07] MEDS: traMADol HCL 50 MG TABLET PO SCH (09:22)
[2025-04-07] MEDS: CeleBREX 200 MG CAP PO SCH (09:22)
[2025-04-07] MEDS: dexAMETHasone**PF** 10 MG/ML VIAL IV SCH (09:22)
[2025-04-07] MEDS: Scopolamine 1 MG TDSY TD SCH (09:22)
--- OUTSIDE RECORDS SUMMARY | 2025-04-07 10:01 | External Medical Summary | Continuity of Care Document ---
Author Name Unknown Organization [place] [id number] Address [facility] [place], [place] [id number] Care Team Providers Care Technical Proposal Writer Name Role Phone Raymond Mayes Primary Care Physician [phone] Encounter [facility] [phone] Date(s): 03/30/25 - 03/30/25 [facility] [address] [id number] [facility] [address] [place] [id number] Encounter Diagnosis Preop examination(Discharge Diagnosis) - 03/30/25 Osteoarthritis of left knee(Discharge Diagnosis) - 03/30/25 Discharge Disposition: Home or Self Care Attending Physician: JAEL Medina Dennis Referring Physician: MD Kirk, Oscar Sanderson Encounter Type: Clinic Allergies, Adverse Reactions, Alerts Substance Criticality Severity Reaction Reaction Severity Status Cats Hives Itchy eyes Active erythromycin nausea Active Dust Itchy eyes Active IVP dye Unable to assess criticality Severe Shortness of breath Hives Swelling Active Immunizations Given and Recorded Vaccine Date Status Refusal Reason influenza virus vaccine, inactivated 09/10/24 Jaime rded influenza virus vaccine, inactivated 1 09/01/20 Re corded influenza virus vaccine, inactivated 08/16/19 Jaime rded influenza virus vaccine, inactivated 08/26/18 Jaime rded influenza virus vaccine, inactivated 2 09/25/16 Re corded influenza virus vaccine, inactivated 09/26/15 Give n influenza virus vaccine, inactivated 08/29/14 Give n SARS-CoV-2 (COVID-19) mRNA-vacc - [id number] 09/10/24 Recorded SARS-CoV-2 (COVID-19) mRNA-vacc - [id number] 09/23/23 Recorded SARS-CoV-2 (COVID-19) mRNA-1273 vaccine 3 09/23/23 Recorded SARS-CoV-2 (COVID-19) mRNA-1273 vaccine 11/05/21 R ecorded pneumococcal 20-valent conjugate vaccine 08/21/23 Recorded SARS-CoV-2 mRNA (Pfizer 12+) bivalent 08/14/22 Rec orded SARS-CoV-2 (COVID-19) mRNA BNT-162b2 vax 4 01/24/21 Recorded SARS-CoV-2 (COVID-19) mRNA BNT-162b2 vax 5 01/03/21 Recorded zoster vaccine, inactivated 08/25/18 Recorded zoster vaccine, inactivated 6 05/26/18 Recorded pneumococcal 23-valent vaccine 03/09/18 Given influenza virus vaccine, live 09/02/17 Recorded pneumococcal 13-valent vaccine 07/29/16 Given tetanus/diphtheria/pertuss, acel (Tdap) 05/13/16 G aramisen 1Result Comment: [facility] 2Result Comment: 2019-01-04: Historical information-source unspecified 3Result Comment: [facility] 4Result Comment: 2021-12-31: Historical information-source unspecified 5Result Comment: 2021-12-31: Historical information-source unspecified 6Result Comment: 2019-01-04: Historical information-source unspecified Medications aspirin 81 mg oral delayed release tablet Start: 03/15/25 10:15:00 AM EDT, 1 tab, PO, Daily Start Date: 03/15/25 Status: Ordered Repeat number: 1 cephalexin 500 mg oral capsule Start: 03/30/25 11:54:00 AM EDT, 1 cap, PO, tid, Disp# 15 cap, Post op infection prophylaxis, Pharmacy: [facility] Start Date: 03/30/25 Stop Date: 04/04/25 Status: Ordered Quantity: 15.0 Unit: cap Repeat number: 1 Indications: Unilateral primary osteoarthritis, left knee; Encounter for other preprocedural examination; diclofenac sodium 75 mg oral delayed release tablet Start: 03/30/25 11:54:00 AM EDT, 1 tab, PO, bid, Disp# 60 tab, Refills: 1, with food, PRN: as neededfor pain, Pharmacy: [facility] Start Date: 03/30/25 Stop Date: 05/29/25 Status: Ordered Quantity: 60.0 Unit: tab Repeat number: 2 Indications: Unilateral primary osteoarthritis, left knee; Encounter for other preprocedural examination; fluticasone CFC free 110 mcg/inh MDI Start: 03/15/25 10:18:00 AM EDT, 2 puff, inhaled, bid, Disp# 3 each, Refills: 3, Pharmacy: [facility] Start Date: 03/15/25 Status: Ordered Quantity: 3.0 Unit: each Repeat number: 4 oxyCODONE 5 mg oral tablet Start: 03/30/25 11:53:00 AM EDT, 1 tab, PO, q4h, Disp# 28 tab, Refills: 0, Post op pain control Max 6/day, PRN: as needed for pain, Pharmacy: [facility] [address] Start Date: 03/30/25 Status: Ordered Quantity: 28.0 Unit: tab Repeat number: 1 Indications: Unilateral primary osteoarthritis, left knee; Encounter for other preprocedural examination; ProAir HFA 90 mcg/inh inhalation aerosol Start: 08/15/22 12:12:00 PM EDT, See Instructions, Disp# 1 each, Refills: 3, INHALE 2 PUFFS BY MOUTH4 TIMES DAILY, Brand Medically Necessary, Pharmacy: [facility] [address] Start Date: 08/15/22 Status: Ordered Quantity: 1.0 Unit: each Repeat number: 4 Vitamin D3 Start: 02/20/22 12:43:00 PM EDT Start Date: 02/20/22 Status: Ordered Repeat number: 1 Zofran 4 mg oral tablet Start: 03/30/25 11:54:00 AM EDT, 1 tab, PO, q8h, Disp# 14 tab, Post op nausea/vomiting, PRN: as needed for nausea/vomiting, Pharmacy: [facility] [address] Start Date: 03/30/25 Status: Ordered Quantity: 14.0 Unit: tab Repeat number: 1 Indications: Unilateral primary osteoarthritis, left knee; Encounter for other preprocedural examination; Problem List Condition Confirmation Course Effective Dates Status H ealth Status Informant Alopecia areata Confirmed Active Lumbar facet arthropathy Confirmed Active ASTHMA Confirmed Active Borderline systolic HTN Confirmed Active Rate-related bundle branch block Confirmed Active Changing skin lesion Confirmed Active Pancreatic cyst Confirmed Active Dizziness Confirmed Active FAMILY HISTORY OF OTHER SPECIFIED MALIGNANT NEOPLASM 1 Confirmed Active Encounter for follow-up examination after completed treatment for cancer Confirmed Active Hand dermatitis Confirmed Active Herpes simplex Confirmed Active History of squamous cell carcinoma Confirmed Active Low back pain Confirmed Active Lumbar radiculopathy Confirmed Active Mild mitral valve prolapse Confirmed [...] Effective Dates Health Status Clinical Service Informant Osteoarthritis of left knee Discharge Diagnosis 03/30/25 Preop examination Discharge Diagnosis 03/30/25 Procedures Procedure Date Related Diagnosis Body Site Status EGD - esophagogastroduodenos copy 1, 2, 3 10/20/24 Completed Wrist 2023 Completed Mammogram 5 07/18/[address] of brain wo IV contrast 6 10/30/22 Completed Shave biopsy and cauterization of skin 07/04/22 Completed Mammogram 7 06/25/22 Completed X-ray of left femur, hip w pelvic 8 04/03/22 Completed DEXA of hip and spine 9 03/21/22 C ompleted Shave biopsy and cauterization of skin 01/30/22 Completed Left hip 10 12/13/21 Completed Ultrasound 11 09/20/21 Completed Shave biopsy 12 02/20/21 Completed Shave biopsy and cauterization of skin 05/16/20 Completed Upper GI endoscopy 13 02/15/20 Com pleted Cardiac catheterization 14 09/22/19 Completed Gynecologica lPathology report 15 10/12/18 Completed Chest x-ray 16 08/26/18 Completed MRI (Magnetic resonance imag ing) of brain 17 03/12/18 Completed REPAIR OF HUMERUS- right 18 10/02/17 Completed Right x-ray of humerus 19, 20 10/02/17 Completed Mammogram 21 08/06/17 Completed Nail avulsion of toe 22 06/19/17 C ompleted MRI,,brain 03/12/17 Completed MRI,of the orbits with and w ithout contrast 03/12/17 Completed Excision 23 12/27/16 Completed Surgery 12/2016 Completed Plain X-ray lumbar spine normal 24 07/29/16 Completed Imaging 25 11/07/15 Completed Mammogram 07/27/15 Completed Procedure 26 07/04/15 Completed Cataract extraction 2014 Co mpleted Colonoscopy 28 08/04/13 Completed DEXA - Dual energy X-ray karina ton absorptiometry 07/02/12 Completed colonoscopy Completed Tubal ligation Completed wisdom teeth Completed 1- Normal esophagus. - Normal stomach. Biopsied. - Normal examined duodenum. Biopsied. 2A) Duodenum, biopsy: No significant pathology. B) Gastric antrum, biopsy: Edema, congestion, and foveolar hyperplasia compatible with reactive gastropathy. COMMENT: No Helicobacter pylori organisms are identified on an immunohistochemical stain for H. pylori. 3Followup with your referring doctor 4Broken and required repair. January 2024 5Impression: There is no mammographic evidence of malignancy. A 1 year screening mammogram is recommended 6Impression: There is no hemorrhage, mass effect, or evidence, or evidence of acute territorial ischemia by CT criteria. 7Impression: There is no mammographic evidence of malignancy. A 1 year screening mammogram is recommended. 81. No fracture or dislocation within the pelvis, hips, or left femur. 2. Left total hip arthroplasty. The hardware appears intact. 9Impression: Ap spine L1-L4 T-score -1.3 Femur neck T-score -1.7 Femur total -1.3 Z-score 0.1 10replaced 11IMPRESSION: 1. No hydronephhrosis 2. Multiple bilateral renal cysts 3. 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 Uncomplicated right radial arterial access. 15LMP: Postmeno Clinical History: None Diagnosis: Negative for intraepithelial lesion or malignancy. 16No active disease in the chest 17impression: 1 No acute intracranial pathology. No abnormal enhancement 2. Nonspecific subcortical white matter foci of signl abnormallity. These may represent chronic small vessel ischemic changes the appearance is not specific for this entity 18Tolerated well. 19impression; postoperative images from open reduction and internal fixation of a right humeral fracture imaging report Impression: Improved alignment status post ORIF of the proximal right Humerus 21There is no mammographic evidence of malignancy. A one year screening is recommended. 22and biopsy 23excision of 2cm lymph node from the right thigh. 24Moderate degenerative change of the mid to lower lumbar spine. No active process 25chest 26Bx: Oral cavity right buccal mucosa, biopsy: Fragments of benign squamous mucosa with associated mild acute and chronic inflammation Negative for dysplasia and malignancy 27apr and march 2015 28Colonoscopy normal- Repeat in 10 years. Social History Social History Type Response Smoking Status Never smoked cigaret monica Sex Female Sex Representation Female (finding) Pre-OP H & P * JAEL Medina, Samson: PERFORM, MODIFY Event Display: Pre-OP H & P Authored Date: PRE-OPERATIVE HISTORY AND PHYSICAL Name: CADEN GÓMEZ Patient Number: [id number] : 1950 Date of Service: 03/30/2025 PRE-OP Diagnosis: Left knee osteoarthritis Planned Procedure: Left total knee arthroplasty Chief Complaint: Left knee pain History of Present Illness (including history relevant to procedure): This 75-year-old female presents to the clinic today for her preoperative history and physical. Patient states that over the pastseveral months she has been experiencing medial and lateral left knee pain with a sense of instability and weakness she states the symptoms are very similar to those that she experienced in her rightknee before undergoing total knee arthroplasty back in May 2023. Patient states that she has been doing an exercise regimen for strengthening of her left lower extremity. She states that occasionally she uses anti- inflammatory agents, however her symptoms still persist. Due to the positive outcomeof her right total knee arthroplasty she is electing to proceed with a left knee replacement. Review Of Systems: A 12 point review of systems is performed and is unremarkable except for those things stated in the HPI past medical history. Past Medical History: Problems: Borderline systolic HTN Encounter for follow-up examination after completed treatment for cancer Lumbar radiculopathy Pancreatic cyst Lumbar facet arthropathy Gluteal tendinitis, left hip Low back pain Seborrheic keratoses Hand dermatitis Actinic keratoses Changing skin lesion History of squamous cell carcinoma Herpes simplex Rate-related bundle branch block Dizziness Oral lichen planus Bilateral primary osteoarthritis of knee Bilateral primary osteoarthritis of hip Mild mitral valve prolapse ASTHMA FAMILY HISTORY OF OTHER SPECIFIED MALIGNANT NEOPLASM Senile hyperkeratosis Alopecia areata Osteopenia of both hips Procedure History Procedure Procedure Date Comments Tubal ligation wisdom teeth colonoscopy EGD - esophagogastroduodenoscopy 10/20/2024 - Followup with your referring doctor - A) Duodenum, biopsy:No significant pathology.B) Gastric antrum, biopsy:Edema, congestion, and foveolar hyperplasia compatible with reactive gastropathy.COMMENT:No Helicobacter pylori organisms are identified on an immunohistochemical stain for H. pylori. - - Normal esophagus. - Normal stomach. Biopsied. - Normal examined duodenum. Biopsied. Wrist 2023 - Broken and required repair. January 2024 Mammogram 07/18/2023 - Impression: There is no mammographic evidence of malignancy. A 1 year screening mammogram is recommended CT of brain wo IV contrast 10/30/2022 - Impression: There is no hemorrhage, mass effect, or evidence, or evidence of acute territorial ischemia by CT criteria. Shave biopsy and cauterization of skin 07/04/2022 Mammogram 06/25/2022 - Impression: There is no mammographic evidence of malignancy. A 1 year screening mammogram is recommended. X-ray of left femur, hip w pelvic 04/03/2022 - 1. No fracture or dislocation within the pelvis, hips, or left femur.2. Left total hip arthroplasty. The hardware appears intact. DEXA of hip and spine 03/21/2022 - Impression:Ap spine L1-L4 T-score -1.3Femur neck T-score -1.7Femur total -1.3Z-score 0.1 Shave biopsy and cauterization of skin 01/30/2022 Left hip 12/13/2021 - replaced Ultrasound 09/20/2021 - IMPRESSION:1. No hydronephhrosis2. Multiple bilateral renal cysts3. 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 Uncomplicated right radial arterial access. Gynecologica lPathology report 10/12/2018 - LMP: PostmenoClinical History: NoneDiagnosis: Negative for intraepithelial lesion or malignancy. Chest x-ray 08/26/2018 - No active disease in the chest MRI (Magnetic resonance imaging) of brain 03/12/2018 - impression: 1 No acute intracranial pathology. No abnormal enhancement 2. Nonspecific subcorticalwhite matter foci of signl abnormallity. These may represent chronic small vessel ischemic changes the appearance is not specific for this entity Right x-ray of humerus 10/02/2017 - 2nd imaging report Impression: Improved alignment status post ORIF of the proximal right Humerus - impression;postoperative images from open reduction and internal fixation of a right humeral fracture REPAIR OF HUMERUS- right 10/02/2017 - Tolerated well. Mammogram 08/06/2017 - There is no mammographic evidence of malignancy. A one year screening is recommended. Nail avulsion of toe 06/19/2017 - and biopsy MRI,of the orbits with and without contrast 03/12/2017 MRI,,brain 03/12/2017 Excision 12/27/2016 - excision of 2cm lymph node from the right thigh. Surgery 12/2016 Plain X-ray lumbar spine normal 07/29/2016 - Moderate degenerative change of the mid to lower lumbar spine. No active process Imaging 11/07/2015 - chest Mammogram 07/27/2015 Procedure 07/04/2015 - Bx: Oral cavity right buccal mucosa, biopsy:Fragments of benign squamous mucosa with associated mild acute and chronic inflammationNegative for dysplasia and malignancy Cataract extraction 2014 - march and march 2015 Colonoscopy 08/04/2013 - Colonoscopy normal- Repeat in 10 years. DEXA - Dual energy X-ray photon absorptiometry 07/02/2012 Allergies and Sensitivities: Dust(Itchy eyes) Cats(Itchy eyes) Cats(Hives) IVP dye(Swelling) IVP dye(Hives) IVP dye(Shortness of breath) erythromycin(nausea) Current Home Meds: (Last Updated 03/30 12:11) albuterol (ProAir HFA 90 mcg/inh inhalation aerosol) INHALE 2 PUFFS BY MOUTH 4 TIMES DAILY aspirin (aspirin 81 mg oral delayed release tablet) 81 mg PO Daily cephalexin (cephalexin 500 mg oral capsule) 500 mg PO tid Post op infection prophylaxis cholecalciferol (Vitamin D3) diclofenac (diclofenac sodium 75 mg oral delayed release tablet) 75 mg PO bid PRN: as needed for pain with food fluticasone (fluticasone CFC free 110 mcg/inh MDI) 2 puff inhaled bid ondansetron (Zofran 4 mg oral tablet) 4 mg PO q8h PRN: as needed for nausea/vomiting Post op nausea/vomiting oxyCODONE (oxyCODONE 5 mg oral tablet) 5 mg PO q4h PRN: as needed for pain Post op pain controlMax 6/day No Vital Signs Data Available Initial Wt: No Data Available Physical Exam: (relevant to the procedure, including heart and lung evaluation) General: Alert and oriented x 3 with proper grooming and hygiene Eyes: Pupils are equal and reactive to light with accommodation. Extraocular movements are intact Throat: Posterior oropharynx clear with absence of edema, erythema or exudate. Dentition is appropriate Cardiac: Regular rate and rhythm with no murmurs or gallops appreciated Lungs: Clear to auscultation throughout with no wheezing, rales or rhonchi Abdomen: Nonobese, nondistended, nontender with normal active bowel sounds Extremities: Left knee; active range of motion is from 4 degrees of extension to 125 degrees of flexion. She has a slight valgus malalignment. She experiences medial and lateral joint line tendernesswhen the knee is palpated in the flexed position. I was able to slightly manipulate her patella with palpable crepitation. She had no laxity with varus or valgus stressing. AP drawer sign Raoul test are negative. She is neurovascularly intact in the left lower extremity. Neuro: Cranial nerves II through XII are intact no motor or sensory deficit Skin: Normal in appearance no open skin areas or discharge Studies (relevant to the procedure): 3 views of the left knee obtained show bone on bone arthritis in the medial compartment of the knee Plan: Patient is scheduled to undergo this procedure at the [facility] following the outpatient joint pathway on April 07, [address] Bradley. Risks and complications of the procedure such as: Infection, bleeding, pain, scarring, nerve blood vessel damage, weakness, wound problems, stiffness, incomplete relief of symptoms, hardware failure, hardware loosening, wear, fracture,tendon or ligament injury, blood clots, embolism, heart attack, stroke and were explained to the patient and her visit today. Informed consent form procedure was obtained. Patient states she recently saw her bicycle designer and received clearance. She is scheduled to see her primary care provider on March 30 for preoperative medical clearance. Patient states she is scheduled to meet anesthesialater today. While there she will obtain a CBC with differential, complete metabolic panel, PT/INR,blood type and screen, urinalysis, urine culture and sensitivity, and a nasal culture for MRSA. HerEKG is up-to-date from her recent visit with cardiology. During today's visit we reviewed the totalknee packet. I answered all questions that the patient had in regards to her surgery. I provided her with paperwork to obtain a handicap placard for her vehicle. Patient will need a walker, raised toilet seat and shower chair prior to surgery. I discussed antibiotic use following joint replacement surgery before dental procedures. We talked about joint venture classes offered by [facility] that are done via zoom. We discussed the outpatient joint pathway and how it works. During today's visit the PDMP was checked and no red flags were raised that would prevent us from prescribing the patient an opioid analgesic for postoperative pain control. Prescriptions for oxycodone, diclofenac sodium, Zofran and Keflex were sent to the patient's pharmacy for to use following surgery. I also discussed with the patient that she will be on a baby aspirin twice daily for the first 30 days postoperatively for blood clot prevention. I also recommended that she purchase a stool softener to help prevent constipation from narcotic use. Patient plans on doing in-home physical therapy for the first 2 weeks postoperatively. I will provide this order to our nurse carbon sequestration plant manager and have this service set up. Patient is scheduled to see me for 2-week postoperative follow-up visit on April 20. This chart was completed utilizing [employer] voice recognition software. Grammatical errors,random word insertions, pronoun errors, and in complete sentences are an occasional consequence of the system. Any questions or concerns about the content, text, or information contained within the body of this dictation should be addressed directly to the physician for clarification. Electronic Signature on File CC: Raymond Mayes, DO [address] [facility] [address] [facility] [id number] CC: Van Genao, DO [address] [facility] [address] [facility] [address] Electronically Reviewed/Signed by: Samson Medina PA-C Author Signature Dt/Tm:03/31/2025 11:27 AM Division of Sports Medicine Electronically Reviewed/Signed by: JAEL Gillette Signature Dt/Tm: 03/31/2025 11:29 AM Division of Sports Medicine Electronically Reviewed/Signed by: MD Enzo Salas Signature Dt/Tm: 03/31/2025 01:50PM Division of Sports Medicine DC Patient Care team information Care Team Personnel Name: MD Mirza, Romulo Gonzales Position: Physician - Family Med Member Role: Lifetime Relationship Address: [address] [place] [address] Telecom: [phone] Name: DO Mayes Franklin J Position: Physician - Family Med Member Role: Primary Care Provider Address: [address] [place] [address] Telecom: [phone] Name: DO Doe Sameer Position: Resident Member Role: Lifetime Relationship Address: [address] [place] [address] Telecom: [phone] Care Team Related Persons Name: SOLOMON GÓMEZ Name: SOLOMON GÓMEZ Insurance Providers Guarantor name: CADEN GÓMEZ Health Plan Information #: 2 Payer: [facility] [employer] Member Number: [id number] Policy Number: NA Group Number: [id number] Payer Identifier: [id number] Health Plan Information #: 1 Payer: MEDICARE Member Number: [id number] Policy Number: NA Group Number: NA Payer Identifier: [id number]
--- OUTSIDE RECORDS SUMMARY | 2025-04-07 10:01 | External Medical Summary | Continuity of Care Document ---
Author Name Unknown Organization [place] [place] [address] [place] [phone] Care Team Providers Care Senior Marketing Coordinator Name Role Phone Raymond Mayes Primary Care Physician [phone] Encounter [facility] [id number] Date(s): 03/30/25 - 03/30/25 [facility] 0 [facility] [address] [id number] [address] [phone] Encounter Diagnosis Preop examination(Discharge Diagnosis) - 03/30/25 Body mass index [BMI] 25.0-25.9, adult(Discharge Diagnosis) - 03/30/25 Discharge Disposition: Home or Self Care Attending Physician: MD Hummel Christopher Encounter Type: Clinic Allergies, Adverse Reactions, Alerts Substance Criticality Severity Reaction Reaction Severity Status erythromycin nausea Active Cats Hives Itchy eyes Active Dust Itchy eyes Active IVP dye Unable to assess criticality Severe Shortness of breath Hives Swelling Active Assessment and Plan Extracted from: Title:Office Visit Note Author:DO Doe Sameer Date:03/30/25 1. Preop examination Ms Gómez is seen for earl-operative risk stratification. They report no cardiac symptoms at rest or on exertion. They have no history of (ischemic heart disease, CHF, CVD, diabetes, EtOH/drug abuse, recent anticoagulant or antithrombotic use, personal or family history of coagulopathy, or CKD). They report no history of (undergoing a stress test, cardiac catheterization, or coronary revascularization). They report being able to achieve >4 METs of activity. According to the RCRI, this number of risk factors stratifies the patient to Class I, which carries with it a 0.4% risk of major CV complications, such as DE, CHF, or malignant arrhythmia (Circulation 1999; 100:1043). These risks, along with the risk of earl- operative stroke, were discussed with the patient, in light of the benefits of possible surgery. Patient wishes to proceed with the operation. Immunizations Given and Recorded Vaccine Date Status [...] 08/29/14 Give n SARS-CoV-2 (COVID-19) mRNA-vacc - [id number] 09/10/24 Recorded SARS-CoV-2 (COVID-19) mRNA-vacc - [id number] 09/23/23 Recorded SARS-CoV-2 (COVID-19) mRNA-1273 vaccine 3 [...] acel (Tdap) 05/13/16 G maritza 1Result Comment: [facility] 2Result Comment: 2019-01-04: Historical information-source unspecified 3Result Comment: [facility] 4Result Comment: 2021-12-31: Historical information-source unspecified [...] 15 cap, Post op infection prophylaxis, Pharmacy: [facility] 2229 Start Date: 03/30/25 Stop Date: 04/04/25 Status: Ordered Quantity: 15.0 Unit: cap Repeat number: 1 Indications: Unilateral primary osteoarthritis, left knee; Encounter for other preprocedural examination; diclofenac sodium 75 mg oral delayed release tablet Start: 03/30/25 11:54:00 AM EDT, 1 tab, PO, bid, Disp# 60 tab, Refills: 1, with food, PRN: as neededfor pain, Pharmacy: [facility] 2229 Start Date: 03/30/25 Stop Date: 05/29/25 Status: Ordered Quantity: 60.0 Unit: tab Repeat number: 2 Indications: Unilateral primary osteoarthritis, left knee; Encounter for other preprocedural examination; fluticasone CFC free 110 mcg/inh MDI Start: 03/15/25 10:18:00 AM EDT, 2 puff, inhaled, bid, Disp# 3 each, Refills: 3, Pharmacy: [facility] Start Date: 03/15/25 Status: Ordered Quantity: 3.0 Unit: each Repeat number: 4 oxyCODONE 5 mg oral tablet Start: 03/30/25 11:53:00 AM EDT, 1 tab, PO, q4h, Disp# 28 tab, Refills: 0, Post op pain control Max 6/day, PRN: as needed for pain, Pharmacy: [facility] Start Date: 03/30/25 Status: Ordered Quantity: 28.0 Unit: tab Repeat number: 1 Indications: Unilateral primary osteoarthritis, left knee; Encounter for other preprocedural examination; ProAir HFA 90 mcg/inh inhalation aerosol Start: 08/15/22 12:12:00 PM EDT, See Instructions, Disp# 1 each, Refills: 3, INHALE 2 PUFFS BY MOUTH4 TIMES DAILY, Brand Medically Necessary, Pharmacy: [facility] Start Date: 08/15/22 Status: Ordered Quantity: 1.0 Unit: each Repeat number: 4 Vitamin D3 Start: 02/20/22 12:43:00 PM EDT Start Date: 02/20/22 Status: Ordered Repeat number: 1 Zofran 4 mg oral tablet Start: 03/30/25 11:54:00 AM EDT, 1 tab, PO, q8h, Disp# 14 tab, Post op nausea/vomiting, PRN: as needed for nausea/vomiting, Pharmacy: [facility] Start Date: 03/30/25 Status: Ordered Quantity: 14.0 Unit: tab Repeat number: 1 Indications: Unilateral primary osteoarthritis, left knee; Encounter for other preprocedural examination; Mental Status 03/30/25 Barriers to Learning one year None evide nt Mandatory Health Literacy Documentation Yes Health Literacy Communication Barriers N ever Primary Language Mauritian Problem List Condition Confirmation Course Effective Dates [...] Effective Dates Health Status Clinical Service Informant Preop examination Discharge Diagnosis 03/30/25 Non-Specified Body mass index [BMI] 25.0-25.9, adult Discharge Diagnosis 03/30/25 Non-Specified Procedures Procedure Date Related Diagnosis Body Site Status EGD - esophagogastroduodenos copy 1, 2, 3 10/20/24 Completed Wrist 4 2023 Completed Mammogram 5 07/18/[address] [...] 2015 28Colonoscopy normal- Repeat in 10 years. Vital Signs Most recent to oldest [Reference Range]: 1 Height 173.5 cm (03/30/25 9:58 AM) Patient Weight 76.0 kg (03/30/25 9:58 AM) Body Mass Index 25.25 kg/m2 (03/30/25 9:58 AM) Temperature [36.5-37.9 DegC] 36.7 DegC (03/30/25 9:58 AM) Heart Rate 85 bpm (03/30/25 9:58 AM) Respiratory Rate 18 br/min (03/30/25 9:58 AM) Blood Pressure 134/82mmHg (03/30/25 9:58 AM) Cuff Pulse Pressure 52 mmHg (03/30/25 9:58 AM) Social History Social History Type Response Smoking Status Never smoked cigaret monica Sex Female Sex Representation Female (finding) FCM Outpt Note * DO Doe Sameer: PERFORM DO Clemente Allison B: MODIFY Event Display: FCM Outpt Note Authored Date: [id number] Chief Complaint Pre-op for Left knee surgery, april 07. History of Present Illness 75 year old female presenting for preoperative evaluation for upcoming left knee replacement on 04/07/25: Preoperative evaluation Requested by/Surgeon: Dr. Barrios Planned surgery: intermediate risk (intraperitoneal, intrathoracic, CEA, head/neck, ortho, prostate) Planned anesthesia: general Exercise tolerance: 4 METs (climbing 1 flight, walking up hill, level ground @ 4mph, heavy house work) Bleeding tendency/history: denies h/o bleeding or clotting issues Substance use per social history in EHR Tobacco: denies EtOH: Infrequently, recreational Prior response to anesthesia: denies previous adverse response to anesthesia Revised Cardiac Risk Index: Score [0] [_] High Risk Surgery [_] Ischemic Heart Disease [_] History of CHF [_] History of cerebrovascular disease [_] Insulin therapy for DM [_] Pre-op Cr >2 Denies chest pain, SOB, palpitations Denies changes in vision,, CONNELL, lightheadedness Denies abdominal pain, N/V/D Review of Systems as per HPI Physical Exam Vitals & Measurements T: 36.7 °C HR: 85 (Monitored) RR: 18 BP: 134/82 SpO2: 98% HT: 173.5 cm WT: 76.0 kg WT: 76.000 kg (Dosing) BMI: 25.25 PHQ2 Data (Data Documented on:03/30/2025 09:57) Emotional health assessment NEGATIVE General: Alert and oriented, No acute distress HEENT: Normocephalic, Nl gross hearing Cardiovascular: Normal rate, Regular rhythm, No murmur, No gallop. Respiratory: Lungs are clear to auscultation, Respirations are non-labored, Breath sounds are equal Gastrointestinal: Non-distended Musculoskeletal: grossly normal range of motion, normal strength. Neurologic: Normal sensory, Normal motor function, CN II-XII grossly intact. Integumentary: Warm, Dry, no rashes noted Psych: Mood-affect congruence. Assessment/Plan 1. Preop examination Ms Gómez is seen for earl-operative risk stratification. They report no cardiac symptoms at rest or on exertion. They have no history of (ischemic heart disease, CHF, CVD, diabetes, EtOH/drug abuse,recent anticoagulant or antithrombotic use, personal or family history of coagulopathy, or CKD). They report no history of (undergoing a stress test, cardiac catheterization, or coronary revascularization). They report being able to achieve >4 METs of activity. According to the RCRI, this number of risk factors stratifies the patient to Class I, which carries with it a 0.4% risk of major CV complications, such as DE, CHF, or malignant arrhythmia (Circulation 1999; 100:1043). These risks,along with the risk of earl-operative stroke, were discussed with the patient, in light of the benefits of possible surgery. Patient wishes to proceed with the operation. Attestation Pt seen and examined in concert with Dr. Doe_, agree with history and physical as documented above. Plan reviewed in detail. Any corrections or additions are noted here - _Agree with plan. Plan lowrisk for the proposed surgery. Patient cleared by cardiology. continue current medications. Follow up in the office as scheduled or sooner as needed. Problem List/Past Medical History Ongoing Actinic keratoses Alopecia areata ASTHMA Bilateral primary osteoarthritis of hip Bilateral primary osteoarthritis of knee Borderline systolic HTN Changing skin lesion Dizziness Encounter for follow-up examination after completed treatment for cancer FAMILY HISTORY OF OTHER SPECIFIED MALIGNANT NEOPLASM Gluteal tendinitis, left hip Hand dermatitis Herpes simplex History of squamous cell carcinoma Low back pain Lumbar facet arthropathy Lumbar radiculopathy Mild mitral valve prolapse Oral lichen planus Osteopenia of both hips Pancreatic cyst Rate-related bundle branch block Seborrheic keratoses Senile hyperkeratosis Resolved Bite wound Closed fracture of right proximal humerus Colles' fracture of right radius Contracture of elbow joint Contracture of hamstring Contracture of wrist Hip strain History of skin cancer Lichen planus Lumbar strain Prediabetes Preop examination S/P ORIF (open reduction internal fixation) fracture Tick bite Visit for preventive health examination Wrist pain, right Procedure/Surgical History •EGD - esophagogastroduodenoscopy| Service Date: 10/20/2024•Wrist| Service Date: 2023•Mammogram| Service Date: 07/18/2023•CT of brain wo IV contrast| Service Date: 10/30/2022•Shave biopsy and cauterization of skin| Service Date: 07/04/2022•Mammogram| Service Date: 06/25/2022•X-ray of left femur, hip w pelvic| Service Date: 04/03/2022•DEXA of hip and spine| Service Date: 03/21/2022•Shave biopsy and cauterization of skin| Service Date: 01/30/2022•Left hip| Service Date: 12/13/2021•Ultrasound| Service Date: 09/20/2021•Shave biopsy| Service Date: 02/20/2021•Shave biopsy and cauterization of skin| Service Date: 05/16/2020•Upper GI endoscopy| Service Date: 02/15/2020•Cardiac catheterization| Service Date: 09/22/2019•Gynecologica lPathology report| Service Date: 10/12/2018•Chest x- ray| Service Date: 08/26/2018•MRI (Magnetic resonance imaging) of brain| Service Date: 03/12/2018•REPAIR OF HUMERUS- right| Service Date: 10/02/2017•Right x-ray of humerus| Service Date: 10/02/2017•Mammogram| Service Date: 08/06/2017•Nail avulsion of toe| Service Date: 06/19/2017•MRI,,brain| Service Date: 03/12/2017•MRI,of the orbits with and without contrast| Service Date: 03/12/2017•Excision| Service Date: 12/27/2016•Surgery| Service Date: 12/2016•Plain X-ray lumbar spine normal| Service Date: 07/29/2016•Imaging| Service Date: 11/07/2015•Mammogram|Service Date: 07/27/2015•Procedure| Service Date: 07/04/2015•Cataract extraction| Service Date:2014•Colonoscopy| Service Date: 08/04/2013•DEXA - Dual energy X-ray photon absorptiometry| Service Date: 07/02/2012•wisdom teeth•Tubal ligation•colonoscopy Medications albuterol(ProAir HFA 90 mcg/inh inhalation aerosol), See Instructions, 3 refills aspirin(aspirin 81 mg oral delayed release tablet), 81 mg= 1 tab, PO, Daily cephalexin(cephalexin 500 mg oral capsule), 500 mg= 1 cap, PO, tid cholecalciferol(Vitamin D3) diclofenac(diclofenac sodium 75 mg oral delayed release tablet), 75 mg= 1 tab, PO, bid, PRN, 1 refills fluticasone(fluticasone CFC free 110 mcg/inh MDI), 2 puff, inhaled, bid, 3 refills ondansetron(Zofran 4 mg oral tablet), 4 mg= 1 tab, PO, q8h, PRN oxyCODONE(oxyCODONE 5 mg oral tablet), 5 mg= 1 tab, PO, q4h, PRN Allergies IVP dye(Severe) Shortness of breath, Hives, Swelling Cats Hives, Itchy eyes Dust Itchy eyes erythromycin nausea Social History Smoking Status Never smoked cigarettes Alcohol Frequency:1-2 times per month Use:Current Type:Wine Employment/School Status:Retired Exercise Duration (average number of minutes):30 Times per week:5-6 times/week Self assessment:Good condition Exercise type:Walking Home/Environment Living situation:Home/Independent Substance Abuse - Denies Substance Abuse Tobacco - Denies Tobacco Use Use:Never smoker Intake (IView) Smoking History Cigarette smoker: Never smoked cigarettes Tobacco Product Use: Never used other tobacco products Family History Asthma: Mother and MGM. COPD: Negative: Brother. High Blood Pressure: Mother and MGM. Lung cancer..: Father. Skin cancer: Daughter. Health Status Family Member(s) Immunizations Vaccine Date Status influenza virus vaccine, inactivated 09/10/2024 Recorded SARS-CoV-2 (COVID-19) mRNA-vacc - [id number] 09/10/2024 Recorded SARS-CoV-2 (COVID-19) mRNA-vacc - [id number] 09/23/2023 Recorded SARS-CoV-2 (COVID-19) mRNA-1273 vaccine 09/23/2023 Recorded Comments : [facility] pneumococcal 20-valent conjugate vaccine 08/21/2023 Recorded SARS-CoV-2 mRNA (Pfizer 12+) bivalent 08/14/2022 Recorded SARS-CoV-2 (COVID-19) mRNA-1273 vaccine 11/05/2021 Recorded SARS-CoV-2 (COVID-19) mRNA BNT-162b2 vax 01/24/2021 Recorded [...] vaccine, inactivated 08/29/2014 Given Recommendations Health Maintenance Pending (in the next year) Due Adult Social Determinants of Health Screening due 03/31/25 Unknown Frequency Falls Plan of Care due 03/31/25 Unknown Frequency Due In Future Adult Influenza Vaccine not due until 05/31/25 and every 1 year Medicare Annual Wellness Visit not due until 01/19/26 and every 1 year Colorectal Cancer Screening not due until 02/02/26 and every 3 year Satisfied (in the past 1 year) Satisfied Adult Influenza Vaccine on 09/10/24. Satisfied by DINH Crabtree Paul Body Mass Index on 03/30/25. Satisfied by DINH Medrano [place] Breast Cancer Screening on 07/26/24. Satisfied by SANNA Rodriguez Lynnae Diabetes Management A1c on 12/23/24. Satisfied by Contributor_system, [id number] Lipid Screening on 12/23/24. Satisfied by Contributor_system, [id number] Medicare Annual Wellness Visit on 01/19/25. Satisfied by SYSTEM Seasonal COVID 19 Vaccine on 09/10/24. Satisfied by DINH Crabtree Paul Electronic Signature on File Electronically Reviewed/Signed by: Pavan Doe DO Author Signature Dt/Tm:03/31/2025 10:36 AM Resident Department of Family Medicine Electronically Reviewed/Signed by: Nicci Clemente DO Cosigner Signature Dt/Tm: 03/31/2025 12:52 PM Department of Family Medicine SR Patient Care team information Care Team Personnel Name: MD Mirza, Romulo Gonzales Position: Physician - Family Med Member Role: Lifetime Relationship Address: [address] [place] [address] Telecom: [phone] Name: DO Mayes Franklin J Position: Physician - Family Med Member Role: Primary Care Provider Address: [address] [place] [address] [place] Telecom: [phone] Name: DO Doe Sameer Position: Resident Member Role: Lifetime Relationship Address: [address] [place] [address] Telecom: [phone] Care Team Related Persons Name: SOLOMON GÓMEZ Name: SOLOMON GÓMEZ Insurance Providers Guarantor name: CADEN GÓMEZ Health Plan Information #: 2 Payer: [facility] Member Number: [id number] Policy Number: NA Group Number: [id number] Payer Identifier: [id number] Health Plan Information #: 1 Payer: MEDICARE Member Number: [id number] Policy Number: NA Group Number: NA Payer Identifier: [id number]"
[2025-04-07] MEDS ORDERED: fentaNYL citrate PF 100 MCG/2 ML VIAL IV PRN (10:21)
[2025-04-07] MEDS ORDERED: PROMETHAZINE HCL 6.25 MG in SODIUM CHLORIDE 0.9% 50 ML IV PRN (10:21)
[2025-04-07] MEDS ORDERED: ATROPINE SULFATE 0.1 MG/ML 10ML SYR IV PRN (10:21)
[2025-04-07] MEDS ORDERED: ONDANSETRON INJ 2 MG/ML 2 ML VIAL IV PRN (10:21)
[2025-04-07] MEDS ORDERED: ePHEDrine sulfate 50 MG/ML AMP IV PRN (10:21)
[2025-04-07] MEDS ORDERED: fentaNYL citrate PF 100 MCG/2 ML VIAL ONE (10:33)
[2025-04-07] MEDS ORDERED: MIDAZOLAM HCL 1 MG/ML 2ML VIAL ONE (10:33)
--- NOTE | 2025-04-07 11:27 | History & Physical Bridge Note ---
Date of Service April 07, 2025 History & Physical Bridge Note I have examined the patient, reviewed the History & Physical and in the interval since the performance of the History & Physical I have noted the following changes of clinical significance: no changes noted
[2025-04-07] MEDS: TRANEXAMIC ACID 1,000 MG **IV Pre-op IV SCH (11:37)
[2025-04-07] MEDS ORDERED: LIDOCAINE 2% 2 ML VIAL/AMP(20MG/ML) INFIL ONE (11:44)
[2025-04-07] MEDS: ceFAZolin 2000MG 2,000 MG/15 ML SYR IV SCH (12:00)
[2025-04-07] MEDS: ORTHO JOINT ANESTHETIC ONE (12:39)
[2025-04-07] MEDS: TRANEXAMIC ACID 1,000 MG **IV Intra-op IV SCH (13:05)
[2025-04-07] MEDS: ROPIVACAINE 0.5% HCL/PF 246 MG, Ketorolac (*for OR use only*) 30 MG, EPINEPHrine 30MG/3... INFIL SCH (13:05)
--- NOTE | 2025-04-07 13:35 | Operative Report ---
Post Operative Report Pre & Post Diagnosis Operation Date: 04/07/25 10:40 Preoperative diagnosis: Left knee osteoarthritis. Postop diagnosis: Left knee osteoarthritis I identified the patient and participated in the time-out.: Yes Procedure Operation Date: 04/07/25 10:40 left total knee arthroplasty Surgeon Oscar Bradley MD Digital Strategy Director Jonas Montague PA-C. No resident or fellow was available to assist Estimated Blood Loss 50 Findings Consistent with Post-Op Diagnosis Specimens left knee bone and soft tissue contents Anesthesia Type Spinal MAC Complications none Disposition Disposition: Recovery Room Indications 75-year-old female with left knee osteoarthritis refractory to conservative management. She has previously undergone a right total knee arthroplasty by myself with a good result. She desires to have the same operation performed on the left knee. I had a long discussion with her about the risks and benefits of surgery, alternatives to surgery, and expected outcomes. After reviewing all these she elected to proceed with surgery. All questions were answered. Informed consent was signed. Description of Procedure Patient was identified in the preoperative holding area where the surgical site, Left knee, was marked. Spinal anesthetic was placed by anesthesia. Patient was brought back to the operating room, placed on the operating room table, and IV sedation was administered. A bump was placed underneath the ipsilateral hip. All bony prominences were padded. Perioperative antibiotics and tranexamic acid were administered. Exam under anesthesia was performed. This demonstrated varus malalignment, range of motion from 10 to 95 degrees, and stable to varus and valgus stressing at 30 degrees. The surgical site was prepped and draped in the normal sterile fashion. Prior to incision a multidisciplinary timeout was called. All in the room were in agreement. We began by exsanguinating the limb with an Esmarch bandage. Tourniquet was inflated to 250 mmHg. A 14 cm long incision was made over the anterior aspect of the knee. I dissected through the subcutaneous tissues to the level of the fascia. Full-thickness flaps were raised above the fascia. A median parapatellar arthrotomy was made. Half the fat pad was excised. A medial release was performed with Bovie electrocautery on the proximal tibia. Synovitis in the knee and suprapatellar pouch was removed. The patella was then everted and held with 2 towel clips. The thickness of the patella was measured at 24 mm. Patellar resection was performed. Caliper showed the patella thickness now to be 15 mm. A size 38 trial was placed and had a great fit. The 3 drill holes were placed then the trial button was placed. The patellar thickness was now 25 mm which I was very happy with. The patellar trial was then removed, and the knee was flexed up. Retractors were placed to protect the MCL and LCL. Osteophytes were removed from the femoral condyles and intercondylar notch. The ACL and PCL were excised. Intramedullary drill guide was drilled into the femur. Distal femoral cutting guide was placed set at 5 degrees of valgus to resect 11 mm off the distal femur. Distal femoral resection was made without difficulty. The tibia was then exposed. The lateral meniscus was sharply excised. The tibial cutting jig was positioned in line with the tibial shaft in the coronal plane and with 3 degrees of posterior slope in the sagittal plane to resect 5 mm off the more involved medial tibial plateau. The jig was then pinned in position and the tibial cut was made. We then brought the knee into full extension. Lamina spreaders were placed. The medial meniscus was excised. The extension block was then placed for 7 mm thickness poly. This gave us full extension and excellent stability to varus and valgus stress. Next the extension block was removed, the knee was flexed up, collateral ligaments were protected, and the epicondylar axis and Whitesides line were marked out on the distal femoral cut. Femoral sizing guide was placed. External rotation was set at [] degrees so that the posterior cut would be parallel with the epicondylar axis and perpendicular with Whitesides line. The patient sized to a size 7 femur. 2 pins were then placed through the jig into the distal femur. The jig was removed and the appropriately sized 4-in-1 cutting jig was placed over the pins, then fixated to the bone using threaded, headed pins. We confirmed that we would not notch the femur with our anterior cut. Our 4 cuts were then made. The cutting jig was removed. The flexion block was then placed with the knee held at 90 degrees. There was excellent stability to varus and valgus at 90 degrees with no gapping medially or laterally. Next the box cutting jig was placed on the distal femur. The box cut was made and the femoral trial was impacted into position. Lug holes were drilled in the distal femur. We then reexposed the tibia. The tibia was sized to a 6 for a fixed bearing component and pinned in external rotation on the cut tibial surface. The intramedullary drill followed by the keel punch were used to prepare the tibia. The tibial tray with a 7 mm thickness polyethylene liner was placed and the knee was brought through a full range of motion. There was excellent stability to varus valgus stress throughout a full range of motion, which was approximately 0-125 degrees. Next the trial components were removed. I then injected the posterior capsule and periosteum with the periarticular injection cocktail. The bone cuts were then irrigated and dried while the cement was mixed on the back table. The femoral component was cemented on first. Excess cement was removed. A lap sponge was placed over the femoral component for protection, then the tibia was subluxated anteriorly. The all polyethylene tibial component was then cemented in place. Again excess cement was removed. The knee was brought into full extension and held there until the cement cured. The patella was cemented and clamped. Dilute Betadine solution was then allowed to soak in the knee while the cement cured. Once the cement was fully cured, the knee was irrigated out, the tourniquet was let down and meticulous hemostasis was ensured. The knee was brought through a full range of motion. I was were very happy with the patella tracking and the stability. We then began to close. Interrupted 0 Vicryl suture was used to repair the patellar retinaculum in [id number] fashion. The quadriceps and patellar tendons were run with #1 Vicryl. The deep dermal layer was closed with interrupted 2-0 Vicryl. Dermabond and Zipline was used for the skin, followed by a Silverlon dressing. A compressive Rod wrap was placed and the knee was placed into a knee immobilizer. Patient's sedation was lifted and was transferred to recovery room in stable condition. Summary of implants: Depuy Attune Posterior Stabilized Cemented Femur, size 7 left Attune All-polyethylene tibial component, posterior stabilized 7 mm thickness, size 6 Attune patella medialized dome, size 38 2 batches of Palacos bone cement Postoperative course: Patient will be admitted to the floor for pain control and monitoring. Weightbearing as tolerated with a walker with no knee range of motion for 48 hours. Aspirin for DVT prophylaxis. I attest to the content of the Intraoperative Record and any orders documented therein. Any exceptions are noted below.
[2025-04-07] MEDS ORDERED: MoRPHine SULFATE 2 MG/ML CARP IM PRN (13:49)
[2025-04-07] MEDS ORDERED: oxyCODONE/ACETAMINOPHEN 5mg/325mg TAB PO PRN (13:49)
--- NOTE | 2025-04-07 13:49 | Operative Report ---
Post Operative Report Pre & Post Diagnosis Operation Date: 04/07/25 10:40 Pre-Op Diagnosis: Osteoarthritis Knee Left Post-Op Diagnosis: Osteoarthritis Knee Left I identified the patient and participated in the time-out.: Yes Procedure Operation Date: 04/07/25 10:40 Actual Procedures p Left Total Knee Arthroplasty(Left) - Oscar Bradley MD Surgeon Oscar Bradley MD Physical Scientist Jonas Montague PA-C. No resident or fellow was available to assist Estimated Blood Loss 50 Findings Consistent with Post-Op Diagnosis Specimens Knee bone and tissue Description of Procedure I was present for the entire case. I assisted with patient positioning, prepping, draping, retraction, suctioning, wound closure, dressing and splint application. Please refer to Dr. Bradley's procedure note for full details. I attest to the content of the Intraoperative Record and any orders documented therein. Any exceptions are noted below.
--- NOTE | 2025-04-07 14:37 | Anesthesiology Progress Note ---
Date of Service April 07, 2025 Anesthesia Post Procedure Vital Signs Vital Signs: Temp Pulse Pulse Resp BP Pulse Ox O2 Del Method 04/07/25 14:35 72 18 156/84 H 97 Room Air 04/07/25 14:25 71 19 151/83 H 96 Room Air 04/07/25 14:15 36.4 C L 73 18 155/84 H 98 Room Air 04/07/25 14:05 77 17 151/80 H 98 Room Air 04/07/25 13:55 79 15 150/86 H 98 Oxymask 04/07/25 13:45 36.0 C L 86 14 147/85 H 96 Oxymask 04/07/25 08:59 36.6 C 77 18 163/91 H 99 Room Air O2 Flow Rate 04/07/25 14:35 0 04/07/25 14:25 0 04/07/25 14:15 0 04/07/25 14:05 0 04/07/25 13:55 4 04/07/25 13:45 4 04/07/25 08:59 Pain Intensity Left Knee: Pain Intensity: 0 Transfer of Care Handoff Completed per policy Notes Mental Status: alert / awake / arousable Patient Amnestic to Procedure: Yes Nausea / Vomiting: adequately controlled Pain: adequately controlled Airway Patency, RR, SpO2: stable & adequate BP & HR: stable & adequate Hydration State: stable & adequate Neuraxial Anesthesia: was administered and sensory block is resolving Anesthetic Complications: no major complications apparent and Pt Satisfied with anesthetic care
--- NOTE | 2025-04-07 14:44 | XRay Report ---
XR knee LT 1 or 2V routine CLINICAL HISTORY: Surgical Post Op COMPARISON: 03/30/2025 FINDINGS: Left knee prosthesis shows no hardware complication. There is expected soft tissue gas. IMPRESSION: Unremarkable postoperative exam. ACT 112: Negative or not required by law. Electronically signed by: Sheldon Love M.D. 04/07/2025 2:42 PM
[2025-04-07] MEDS: ceFAZolin 1000MG 1,000 MG/7.5 ML SYR IV SCH (17:00)
[2025-04-07] MEDS: Scopolamine CHECK PATCH PLACEMENT SCH (17:43)
[2025-04-07] MEDS ORDERED: MAGNESIUM HYDROXIDE SUSP 30 ML UDC PO PRN (17:45)
[2025-04-07] MEDS ORDERED: HYDROmorphone INJ 1 MG/ML SYRINGE IV PRN (17:45)
[2025-04-07] MEDS ORDERED: ALBUTEROL HFA 8 GM INHALER INH PRN (17:45)
[2025-04-07] MEDS ORDERED: NALOXONE HCL 0.4 MG/1 ML VIAL/CARP IV PRN (17:45)
[2025-04-07] MEDS ORDERED: bisacodyL 10 MG SUPP PR PRN (17:45)
[2025-04-07] MEDS ORDERED: HYDROmorphone INJ 0.5 MG/0.5 ML SYR IV PRN (17:45)
[2025-04-07] MEDS: SODIUM CHLORIDE 0.9% 1,000 ML IV SCH (18:06)
[2025-04-07] MEDS: SENNA 8.6 MG TAB PO SCH (20:30)
[2025-04-07] MEDS: DOCUSATE SODIUM 100 MG CAP PO SCH (20:30)
[2025-04-07] MEDS: ASPIRIN 81 MG ECTAB PO SCH (20:30)
[2025-04-07 23:57] VITALS: RESP 18
[2025-04-08] MEDS: ceFAZolin 2000MG 2,000 MG/15 ML SYR IV SCH (00:06)
[2025-04-08] MEDS: oxyCODONE HCL IR 5 MG TAB (IMMEDIATE RELEASE) PO PRN (03:14)
[2025-04-08 06:07] LABS: Hemoglobin 11.3 g/dl (12.0-16.0); Mean Corpuscular Hemoglobin 31.1 pg (25.0-34.0); Mean Corpuscular Hgb Conc 34.2 g/dL (32.0-36.0); Mean Corpuscular Volume 90.9 fL (80.0-100.0); Mean Platelet Volume 9.9 fL (9.4-12.4); Platelet Count 229 K/uL (130-400); RDW Coefficient of Variation 12.4 % (11.5-14.5); RDW Standard Deviation 41.3 fL (36.4-46.3); Red Blood Count 3.63 M/uL (4.20-5.40); White Blood Count 9.14 K/ul (4.8-10.8)
[2025-04-08 06:24] LABS: BUN Creatinine Ratio 20.5 (10-20); Calcium 8.5 mg/dl (8.6-10.3); Creatinine Clr Calc Pharmacy 41.9 ml/min; Potassium 4.3 mmol/L (3.5-5.1)
[2025-04-08] MEDS: dexAMETHasone 10 MG in SYRINGE 0 ML IV SCH (07:24)
[2025-04-08 07:44] VITALS: BP 149/70; PULSE 62; TEMP 98.1; O2SAT 98
[2025-04-08] MEDS: CHOLECALCIFEROL 25 MCG (1000 UNITS) TAB PO SCH (09:14)
[2025-04-08] MEDS: FLUTICASONE FUROATE 100MCG 14 PUFFS/INHALER INH SCH (09:14)
[2025-04-08] MEDS: MULTIVITAMIN TAB PO SCH (09:14)
--- NOTE | 2025-04-08 12:30 | Orthopedic Progress Note ---
Date of Service April 08, 2025 Assessment & Plan (1) Status post left knee replacement: Plan: Postop day #1 status post left total knee arthroplasty. Patient was initially planning for same-day discharge however PT and OT had recommended observation overnight. Vitals are stable. Postop labs show mild anemia likely secondary to acute blood loss hemoglobin 11.3. No leukocytosis. No acute kidney injury. Postoperative x-ray showed no acute findings. Bulky dressing was taken down and underlying silverlon dressing is clean dry and intact. I added 2 more ABD pads to the anterior knee and wrapped with a 6 inch Rod wrap which can be left on while she is using the knee immobilizer, which she will use for 48 hours from surgery when ambulating. She can work on range of motion exercises when in bed. Continue to ice and elevate. Has passed PT and OT, and feels well enough to be discharged today. Pain management with Tylenol, diclofenac, and oxycodone. Aspirin 81 mg twice daily for DVT prophylaxis. FLOR stockings bilaterally. Continue to use walker. She has home health scheduled for the first 2 weeks then outpatient physical therapy starting at 2 weeks. She can shower as long as the dressing is intact. Do not submerge wound underwater. Has a 2-week follow-up appointment scheduled with our office. She was encouraged to contact our office with any questions or concerns. Admission and Anticipated Discharge Date Admission Date: April 07, 2025 Subjective Patient seen in bed this morning. She states that she is doing well and would like to be discharged home. She had some pain overnight which was alleviated with oxycodone which she was relieved about. She denies any chest pain, shortness of breath, nausea, vomiting, numbness or tingling below her left knee. Physical Exam Constitutional: Resting comfortably in bed. In no distress. Pleasant. Cardiovascular: Left DP pulse 2+ Musculoskeletal: Left lower extremity: Bulky dressing taken down. Silverlon dressing is clean, dry, intact with no drainage. There is no edema. No ecchymosis about the knee or lower leg. Able to perform straight leg raise. Strength 5/5 with ankle plantarflexion, dorsiflexion, eversion. Able to move all toes. Neurologic: No sensory deficits to light touch in left toes Results & Data Vital Signs (Past 12 Hours) Vital Signs Temp Pulse Pulse Resp BP BP Pulse Ox 04/08/25 07:42 98.1 F 62 18 149/70 H 98 04/08/25 03:58 97.9 F 50 L 18 136/74 95 O2 Del Method 04/08/25 07:42 Room Air 04/08/25 03:58 Room Air Laboratory Results 04/08/25 05:45 WBC 9.14 RBC 3.63 L Hgb 11.3 L Hct 33.0 L MCV 90.9 MCH 31.1 MCHC 34.2 RDW Std Deviation 41.3 RDW Coeff of José Miguel 12.4 Plt Count 229 MPV 9.9 Sodium 139 Potassium 4.3 Chloride 106 Carbon Dioxide 29 Anion Gap 4 BUN 24 H Creatinine 1.17 Est Cr Clr Drug Dosing 41.9 eGFR 48.66 BUN/Creatinine Ratio 20.5 H Glucose 128 H Calcium 8.5 L Diagnostic Findings Knee X-Ray 04/07/25 13:50 XR knee LT 1 or 2V routine CLINICAL HISTORY: Surgical Post Op COMPARISON: 03/30/2025 FINDINGS: Left knee prosthesis shows no hardware complication. There is expected soft tissue gas. IMPRESSION: Unremarkable postoperative exam. ACT 112: Negative or not required by law. Electronically signed by: Sheldon Love M.D. 04/07/2025 2:42 PM
--- NOTE | 2025-04-08 15:00 | Discharge Summary ---
Date of Service April 08, 2025 Admission HPI Per Admitting Provider History of Present Illness (including history relevant to procedure): This 75-year-old female presents to the clinic today for her preoperative history and physical. Patient states that over the past several months she has been experiencing medial and lateral left knee pain with a sense of instability and weakness she states the symptoms are very similar to those that she experienced in her right knee before undergoing total knee arthroplasty back in May 2023. Patient states that she has been doing an exercise regimen for strengthening of her left lower extremity. She states that occasionally she uses anti-infl ammatory agents, however her symptoms still persist. Due to the positive outcome of her right total knee arthroplasty she is electing to proceed with a left knee replacement. Review Of Systems: A 12 point review of systems is performed and is unremarkable except for those things stated in the HPI past medical history. Past Medical History: Problems: Borderline systolic HTN Encounter for follow-up examination after completed treatment for cancer Lumbar radiculopathy Pancreatic cyst Lumbar facet arthropathy Gluteal tendinitis, left hip Low back pain Seborrheic keratoses Hand dermatitis Actinic keratoses Changing skin lesion History of squamous cell carcinoma Herpes simplex Rate-related bundle branch block Dizziness Oral lichen planus Bilateral primary osteoarthritis of knee Bilateral primary osteoarthritis of hip Mild mitral valve prolapse ASTHMA FAMILY HISTORY OF OTHER SPECIFIED MALIGNANT NEOPLASM Senile hyperkeratosis Alopecia areata Osteopenia of both hips Procedure History Procedure Procedure Date Comments Tubal ligation wisdom teeth colonoscopy EGD - esophagogastroduodenoscopy 10/20/2024 - Followup with your referring doctor - A) Duodenum, biopsy:No significant pathology.B) Gastric antrum, biopsy:Edema, congestion, and foveolar hyperplasia compatible with reactive gastropathy.COMMENT:No Helicobacter pylori organisms are identified on an immunohistochemical stain for H. pylori. - - Normal esophagus. - Normal stomach. Biopsied. - Normal examined duodenum. Biopsied. Wrist 2023 - Broken and required repair. January 2024 Mammogram 07/18/2023 - Impression: There is no mammographic evidence of malignancy. A 1 year screening mammogram is recommended CT of brain wo IV contrast 10/30/2022 - Impression: There is no hemorrhage, mass effect, or evidence, or evidence of acute territorial ischemia by CT criteria. Shave biopsy and cauterization of skin 07/04/2022 Mammogram 06/25/2022 - Impression: There is no mammographic evidence of malignancy. A 1 year screening mammogram is recommended. X-ray of left femur, hip w pelvic 04/03/2022 - 1. No fracture or dislocation within the pelvis, hips, or left femur.2. Left total hip arthroplasty. The hardware appears intact. DEXA of hip and spine 03/21/2022 - Impression:Ap spine L1-L4 T-score -1.3Femur neck T-score -1.7Femur total -1.3Z-score 0.1 Shave biopsy and cauterization of skin 01/30/2022 Left hip 12/13/2021 - replaced Ultrasound 09/20/2021 - IMPRESSION:1. No hydronephhrosis2. Multiple bilateral renal cysts3. 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 Uncomplicated right radial arterial access. Gynecologica lPathology report 10/12/2018 - LMP: PostmenoClinical History: NoneDiagnosis: Negative for intraepithelial lesion or malignancy. Chest x-ray 08/26/2018 - No active disease in the chest MRI (Magnetic resonance imaging) of brain 03/12/2018 - impression: 1 No acute intracranial pathology. No abnormal enhancement 2. Nonspecific subcortical white matter foci of signl abnormallity. These may represent chronic small vessel ischemic changes the appearance is not specific for this entity Right x-ray of humerus 10/02/2017 - 2nd imaging report Impression: Improved alignment status post ORIF of the proximal right Humerus - impression;postoperative images from open reduction and internal fixation of a right humeral fracture REPAIR OF HUMERUS- right 10/02/2017 - Tolerated well. Mammogram 08/06/2017 - There is no mammographic evidence of malignancy. A one year screening is recommended. Nail avulsion of toe 06/19/2017 - and biopsy MRI,of the orbits with and without contrast 03/12/2017 MRI,,brain 03/12/2017 Excision 12/27/2016 - excision of 2cm lymph node from the right thigh. Surgery 12/2016 Plain X-ray lumbar spine normal 07/29/2016 - Moderate degenerative change of the mid to lower lumbar spine. No active process Imaging 11/07/2015 - chest Mammogram 07/27/2015 Procedure 07/04/2015 - Bx: Oral cavity right buccal mucosa, biopsy:Fragments of benign squamous mucosa with associated mild acute and chronic inflammationNegative for dysplasia and malignancy Cataract extraction 2014 - march and march 2015 Colonoscopy 08/04/2013 - Colonoscopy normal- Repeat in 10 years. DEXA - Dual energy X-ray photon absorptiometry 07/02/2012 Allergies and Sensitivities: Dust(Itchy eyes) Cats(Itchy eyes) Cats(Hives) IVP dye(Swelling) IVP dye(Hives) IVP dye(Shortness of breath) erythromycin(nausea) Current Home Meds: (Last Updated 03/30 12:11) albuterol (ProAir HFA 90 mcg/inh inhalation aerosol) INHALE 2 PUFFS BY MOUTH 4 TIMES DAILY aspirin (aspirin 81 mg oral delayed release tablet) 81 mg PO Daily cephalexin (cephalexin 500 mg oral capsule) 500 mg PO tid Post op infection prophylaxis cholecalciferol (Vitamin D3) diclofenac (diclofenac sodium 75 mg oral delayed release tablet) 75 mg PO bid PRN: as needed for pain with food fluticasone (fluticasone CFC free 110 mcg/inh MDI) 2 puff inhaled bid ondansetron (Zofran 4 mg oral tablet) 4 mg PO q8h PRN: as needed for nausea/vomiting Post op nausea/vomiting oxyCODONE (oxyCODONE 5 mg oral tablet) 5 mg PO q4h PRN: as needed for pain Post op pain controlMax 6/day Discharge Data Procedures Performed Operation Date: 04/07/25 10:40 Actual Procedures p Left Total Knee Arthroplasty(Left) - Oscar Bradley MD Hospital Course (1) Osteoarthritis of left knee: Plan Postop day #1 status post left total knee arthroplasty. Patient was initially planning for same-day discharge however PT and OT had recommended observation overnight. Vitals are stable. Postop labs show mild anemia likely secondary to acute blood loss hemoglobin 11.3. No leukocytosis. No acute kidney injury. Postoperative x-ray showed no acute findings. Bulky dressing was taken down and underlying silverlon dressing is clean dry and intact. I added 2 more ABD pads to the anterior knee and wrapped with a 6 inch Rod wrap which can be left on while she is using the knee immobilizer, which she will use for 48 hours from surgery when ambulating. She can work on range of motion exercises when in bed. Continue to ice and elevate. Has passed PT and OT, and feels well enough to be discharged today. Pain management with Tylenol, diclofenac, and oxycodone. Aspirin 81 mg twice daily for DVT prophylaxis. FLOR stockings bilaterally. Continue to use walker. She has home health scheduled for the first 2 weeks then outpatient physical therapy starting at 2 weeks. She can shower as long as the dressing is intact. Do not submerge wound underwater. Has a 2-week follow-up appointment scheduled with our office. She was encouraged to contact our office with any questions or concerns..
== END 2025-04-08 12:21 | disposition home health service (06) ==
LOC: ASU 08:44 → 3E 08:44